=== PATIENT | female | born 1950 | race Caucasian/White ===

== ENCOUNTER → 2016-11-24 | Outpatient (CLI) | payer MEDICARE ==
--- NOTE | 2016-11-25 07:24 | MM ---
Reason for exam: follow-up at short interval from prior study. Last mammogram was performed 6 months ago. History: Patient is postmenopausal. Family history of breast cancer in aunt. Benign US right guided mammotome of the right breast, December 13, 2008. Benign left mammotome panel of the left breast, September 12, 2006. Benign right mammotome panel of the right breast, September 12, 2006. Benign stereotactic core biopsy of the left breast, March 18, 2000. Took estrogen beginning at age 46. Took progesterone beginning at age 46. Physical Findings: Nurse Summary: 1.5cm nodule in the right breast at 10 o'clock (nurse dw). MG 3D Diag Mammo W/Cad RT CC and MLO view(s) were taken of the right breast. Prior study comparison: May 10, 2016, bilateral MG diagnostic mammo w CAD LOREN. December 10, 2013, CAD bilateral diagnostic mammogram. There are scattered fibroglandular densities. Asymmetric breast tissue in the right breast. No significant new findings when compared with 2008. These results were verbally communicated with the patient and result sheet given to the patient on 11/24/16. ASSESSMENT: Benign, BI-RAD 2 RECOMMENDATION: Routine screening mammogram of both breasts in 6 months. Back on schedule.
--- NOTE | 2016-11-25 07:25 | USB ---
Reason for exam: follow-up at short interval from prior study. History: Patient is postmenopausal. Family history of breast cancer in aunt. Benign US right guided mammotome of the right breast, December 13, 2008. Benign left mammotome panel of the left breast, September 12, 2006. Benign right mammotome panel of the right breast, September 12, 2006. Benign stereotactic core biopsy of the left breast, March 18, 2000. Took estrogen beginning at age 46. Took progesterone beginning at age 46. US Breast RT Right breast ultrasound including all four quadrants, the retroareolar region and axilla demonstrates a 2.0 x 2.1 x 1.6cm oval, lobular, mixed, hypoechoic, vascular lesion at 10 o'clock. These results were verbally communicated with the patient and result sheet given to the patient on 11/24/16. ASSESSMENT: Benign, BI-RAD 2 RECOMMENDATION: Routine screening mammogram of both breasts in 6 months. Back on schedule.
== END | disposition home or self-care (01) ==
LOC: RADMAMWWP 14:07
PROVIDERS: ATTEND Family Medicine
DX: R92.8 Other abnormal and inconclusive findings on diagnostic imaging of breast (principal)
CPT/HCPCS: 76641; G0206; G0279

== ENCOUNTER → 2017-06-14 | Outpatient (CLI) | payer MEDICARE ==
--- NOTE | 2017-06-15 08:33 | MM ---
Reason for exam: screening (asymptomatic). Last mammogram was performed 7 months ago. History: Patient is postmenopausal and history of other cancer. Family history of breast cancer in maternal aunt at age 65. Benign US right guided mammotome of the right breast, December 13, 2008. Benign left mammotome panel of the left breast, September 12, 2006. Benign right mammotome panel of the right breast, September 12, 2006. Benign stereotactic core biopsy of the left breast, March 18, 2000. Took estrogen beginning at age 46. Took progesterone beginning at age 46. Physical Findings: Nurse Summary: 2 x 2cm nodule in the right breast at 10 o'clock (cw). MG 3D Diag Mammo W/Cad LOREN Bilateral CC and MLO view(s) were taken. Prior study comparison: November 24, 2016, right breast MG 3d diag mammo w/cad RT. November 24, 2016, right breast US breast RT. May 10, 2016, bilateral MG diagnostic mammo w CAD LOREN. December 10, 2013, CAD bilateral diagnostic mammogram. The breast tissue is heterogeneously dense. This may lower the sensitivity of mammography. Previous mammotome biopsy in the right breast x 2 and in the left breast x 2. Large circumscribed mass in the right breast upper outer quadrant corresponds to the palpable site and shows slight enlargement from 2014 measuring 26 x 25mm versus 22 x 16mm. Patient reports that the mass feels larger. These results were verbally communicated with the patient and result sheet given to the patient on 06/14/17. ASSESSMENT: Incomplete: need additional imaging evaluation, BI-RAD 0 RECOMMENDATION: Ultrasound of the right breast.
--- NOTE | 2017-06-15 08:37 | USB ---
Reason for exam: additional evaluation requested from abnormal screening. History: Patient is postmenopausal and history of other cancer. Family history of breast cancer in maternal aunt at age 65. Benign US right guided mammotome of the right breast, December 13, 2008. Benign left mammotome panel of the left breast, September 12, 2006. Benign right mammotome panel of the right breast, September 12, 2006. Benign stereotactic core biopsy of the left breast, March 18, 2000. Took estrogen beginning at age 46. Took progesterone beginning at age 46. US Breast Limited RT Right breast ultrasound demonstrates a 2.5 x 2.1 x 1.8cm mixed, hypoechoic, vascular lesion at 10 o'clock, previously measured 2.1 x 2.0 x 1.7cm on 11/24/16, previous to that 2.1 x 1.7 x 1.4cm on 05/10/16. This previously sampled mass shows slight gradual enlargement. Consideration can be given to excision. These results were verbally communicated with the patient and result sheet given to the patient on 06/14/17. ASSESSMENT: Benign, BI-RAD 2 (given prior benign biopsies of this mass) RECOMMENDATION: Surgical consultation of the right breast due to slight gradual enlargement. Excision can be considered. Called with mammographic findings and has scheduled an appointment for the patient for 06/20/17 at 1:[address] Enriquez. PRELIMINARY REPORT CALLED AND FAXED TO DR. ENRIQUEZ ON 06/15/17 /TP. ANDRESSA
== END | disposition home or self-care (01) ==
LOC: RADMAMWWP 12:44
PROVIDERS: ATTEND Family Medicine
DX: R92.8 Other abnormal and inconclusive findings on diagnostic imaging of breast (principal)
CPT/HCPCS: 76642; G0204; G0279

== ENCOUNTER 2018-01-10 16:25 | Day surgery (SDC) | payer MEDICARE ==
[2018-01-10 15:56] VITALS: BP 112/70; PULSE 70; RESP 16; TEMP 97.7
== END 2018-01-10 16:26 | disposition home or self-care (01) ==
LOC: RADPROMAIN 16:25
PROVIDERS: ATTEND Radiology Diagnostic Radiology
DX: Z45.89 Encounter for adjustment and management of other implanted devices (principal)
CPT/HCPCS: 99213

== ENCOUNTER 2018-01-17 12:57 | Day surgery (SDC) | payer MEDICARE ==
[2018-01-17 14:24] VITALS: BP 112/74; PULSE 84; RESP 18; TEMP 98.7
== END 2018-01-17 13:45 | disposition home or self-care (01) ==
LOC: RADPROMAIN 12:57
PROVIDERS: ATTEND Radiology Diagnostic Radiology
DX: Z48.03 Encounter for change or removal of drains (principal); Z53.9 Procedure and treatment not carried out, unspecified reason

== ENCOUNTER 2018-01-24 13:53 | Day surgery (SDC) | payer MEDICARE ==
[2018-01-24 13:49] VITALS: BP 126/74; PULSE 66; RESP 16; TEMP 97.6
== END 2018-01-24 14:00 | disposition home or self-care (01) ==
LOC: RADPROMAIN 13:53
PROVIDERS: ATTEND Radiology Diagnostic Radiology
DX: Z45.89 Encounter for adjustment and management of other implanted devices (principal)
CPT/HCPCS: 99213

== ENCOUNTER → 2018-01-24 | Outpatient (CLI) | payer MEDICARE ==
[2018-01-24 12:17] LABS: Blood Urea Nitrogen 9 mg/dL (7-17)
--- NOTE | 2018-01-24 14:36 | CT ---
EXAMINATION TYPE: CT abdomen pelvis w con DATE OF EXAM: 01/24/2018 COMPARISON: Previous exam 12/30/2017 HISTORY: Diverticulitis of large intestines CT DLP: 749 mGycm Automated exposure control for dose reduction was used. TECHNIQUE: Helical acquisition of images from the lung bases through the pelvis have been completed. CONTRAST: Performed with Oral Contrast and with IV Contrast, patient injected with 100 mL of Omnipaque 300. FINDINGS: LUNG BASES: No significant abnormality is appreciated. AORTA: No significant abnormality is appreciated. LIVER/GB: No significant interval change is appreciated. PANCREAS: No significant abnormality is seen. SPLEEN: No significant abnormality is seen. ADRENALS: No change, there is a right adrenal mass larger than left adrenal mass. KIDNEYS: No significant abnormality is seen. REPRODUCTIVE ORGANS: No significant abnormality is seen BOWEL: There is interval improvement in the pelvic fluid collection which is now smaller, the pigtai l catheter is stable in position within the collection which now measures approximately 4.5 cm x 2 cm x 16 mm. Some local sigmoid colonic wall thickening persists. Extensive diverticular changes again n oted. Second pocket with air-fluid level is present in the right hemipelvis which also appears smalle r. FREE AIR: No Free Air visible. ASCITES: None visible. PELVIC ADENOPATHY: None visualized. RETROPERITONEAL ADENOPATHY: No Retroperitoneal Adenopathy visible. URINARY BLADDER: No significant abnormality is seen. OSSEOUS STRUCTURES: No significant abnormality is seen. IMPRESSION: THERE IS IMPROVEMENT IN SIZE OF THE PATIENT'S PELVIC ABSCESS. ABNORMAL APPEARING: COMPATIBLE WITH COL ITIS, DIVERTICULITIS, EXTENSIVE DIVERTICULOSIS PRESENT IN THE SIGMOID COLON.
== END | disposition home or self-care (01) ==
LOC: RADCTMAIN 11:45
PROVIDERS: ATTEND Surgery
DX: N73.9 Female pelvic inflammatory disease, unspecified (principal)
CPT/HCPCS: 82565; 84520; 74177; Q9967

== ENCOUNTER 2018-01-26 14:49 | Inpatient (IN) | payer MEDICARE ==
[2018-01-26] MEDS ORDERED: LACTATED RINGERS 1,000 ML IV SCH (16:00)
[2018-01-26 16:26] LABS: Basophils % (A) 0 %; Eosinophils # (A) 0.4 k/uL (0-0.7); Eosinophils % (A) 3 %; HCT 33.5 % (34.0-46.0); HGB 10.6 gm/dL (11.4-16.0); Lymphocytes # (A) 1.9 k/uL (1.0-4.8); Lymphocytes % (A) 16 %; MCH 30.7 pg (25.0-35.0); MCHC 31.5 g/dL (31.0-37.0); MCV 97.3 fL (80.0-100.0); Mean Platelet Volume 6.7; Monocytes # (A) 0.7 k/uL (0-1.0); Monocytes % (A) 6 %; Neutrophils # (A) 9.1 k/uL (1.3-7.7); Neutrophils % (A) 74 %; Platelet Count 425 k/uL (150-450); RBC 3.44 m/uL (3.80-5.40); RDW 14.6 % (11.5-15.5); WBC 12.3 k/uL (3.8-10.6)
[2018-01-26 16:38] LABS: ALT 19 U/L (9-52); AST 19 U/L (14-36); Albumin 2.8 g/dL (3.5-5.0); Alkaline Phosphatase 115 U/L (38-126); Anion Gap 9 mmol/L; Blood Urea Nitrogen 7 mg/dL (7-17); Calcium 8.6 mg/dL (8.4-10.2); Carbon Dioxide 28 mmol/L (22-30); Chloride 104 mmol/L (98-107); Glucose 80 mg/dL (74-99); Potassium 3.5 mmol/L (3.5-5.1); Sodium 141 mmol/L (137-145); Total Bilirubin 0.2 mg/dL (0.2-1.3); Total Protein 5.5 g/dL (6.3-8.2)
[2018-01-26] MEDS ORDERED: IV FLUID CONTINUATION 1,000 ML IV ONE (17:01)
[2018-01-26] MEDS ORDERED: DEXAMETHASONE SOD PHOS (MDV) 100 MG/10 ML VIAL IVP ONE (17:34)
[2018-01-26] MEDS ORDERED: HEPARIN SODIUM,PORCINE 5,000 UNIT/ML 1 ML VIAL SQ ONE (17:34)
[2018-01-26] MEDS ORDERED: ONDANSETRON 4 MG/2 ML VIAL IVP ONE (17:34)
[2018-01-26] MEDS ORDERED: MIDAZOLAM 2 MG/2 ML VIAL ONE (17:35)
[2018-01-26] MEDS ORDERED: GLYCOPYRROLATE 0.2 MG/ML 2 ML VIAL ONE (17:35)
[2018-01-26] MEDS ORDERED: NEOSTIGMINE 1 MG/ML 10 ML VIAL ONE (17:35)
[2018-01-26] MEDS ORDERED: fentaNYL (PF) 50 MCG/ML 2 ML AMP ONE (17:35)
[2018-01-26] MEDS ORDERED: LIDOCAINE 1% INJ 10MG/ML (20 ML MDV) ONE (17:35)
[2018-01-26] MEDS ORDERED: SODIUM CHLORIDE 0.9% 50 ML with CLINDAMYCIN 600 MG IV ONE ×2 (17:35)
[2018-01-26] MEDS ORDERED: ROCURONIUM BROMIDE 10 MG/ML 10 ML VIAL IV ONE (17:35)
[2018-01-26] MEDS ORDERED: CLINDAMYCIN 150 MG/ML 4 ML VIAL ONE (17:35)
[2018-01-26] MEDS ORDERED: PHENYLEPHRINE-0.9% NACL SYG 1 MG/10 ML SYRINGE ONE (17:35)
[2018-01-26] MEDS ORDERED: PROPOFOL 10 MG/ML 20 ML VIAL IV ONE (17:35)
[2018-01-26] MEDS ORDERED: SUCCINYLCHOLINE CHLORIDE 100 MG/5 ML SYR IV ONE (17:35)
--- NOTE | 2018-01-26 17:35 | P.GSHP ---
History of Present Illness H&P Date: 01/26/18 Chief Complaint: Perforated diverticulitis This is a 67-year-old female with history of diverticulitis and abscess. Patient underwent CT-guided drainage several weeks ago. The patient was seen in my office today. Patient had flavio stool in her CT-guided drain. Patient is being admitted to the hospital she will undergo exposure laparotomy with colostomy and possible bowel resection today for perforated diverticulitis. The patient states she has noted feculent drainage the last 3 or 4 days. - Constitutional Constitutional: Reports as per HPI Past Medical History Past Medical History: Cancer, Hyperlipidemia, Hypertension Additional Past Medical History / Comment(s): 2017 right breast cancer(sx only) , osteopenia, skin cancer-basal cell on cheek) History of Any Multi-Drug Resistant Organisms: None Reported Past Surgical History: Heart Catheterization Additional Past Surgical History / Comment(s): rt mastectomy, skin cancer removed Past Anesthesia/Blood Transfusion Reactions: No Reported Reaction Past Psychological History: No Psychological Hx Reported Smoking Status: Current every day smoker Past Alcohol Use History: Occasional Additional Past Alcohol Use History / Comment(s): started smoking at age 26 used to smoke 1 ppd now down to 4 cig per day, occ glass of wine Past Drug Use History: None Reported - Past Family History Father History Unknown: Yes Mother Family Medical History: Dementia Medications and Allergies Home Medications Medication Instructions Recorded Confirmed Type Aspirin 81 mg PO HS 12/26/17 01/26/18 History Isosorbide Mononitrate ER [Imdur] 30 mg PO HS 12/26/17 01/26/18 History Metoprolol Succinate (ER) [Toprol 50 mg PO HS 12/26/17 01/26/18 History Xl] Simvastatin [Zocor] 40 mg PO HS 12/26/17 01/26/18 History metroNIDAZOLE [Flagyl] 500 mg PO Q8HR #45 tab 01/03/18 01/26/18 Rx Letrozole [Femara] 2.5 mg PO HS 01/26/18 01/26/18 History cefTRIAXone SODIUM [Ceftriaxone] 2 gm IV DAILY@1000 01/26/18 01/26/18 History Allergies Allergy/AdvReac Type Severity Reaction Status Date / Time Penicillins Allergy Swelling Verified 01/26/18 15:49 Surgical - Exam Vital Signs Temp Pulse Resp BP Pulse Ox 98.5 F 76 16 145/84 96 03/08/18 15:27 01/26/18 15:27 01/26/18 15:27 01/26/18 15:27 01/26/18 15:27 - General well developed, moderate distress - Eyes PERRL - ENT normal pinna - Neck no masses - Respiratory normal expansion - Cardiovascular Rhythm: regular - Abdomen Tenderness left lower quadrant. There is some minimal rebound tenderness Abdomen: soft Results - Labs 01/26/18 16:04 01/26/18 16:04 Abnormal Lab Results - Last 24 Hours (Table) 01/26/18 01/26/18 Range/Units 16:04 16:04 WBC 12.3 H (3.8-10.6) k/uL RBC 3.44 L (3.80-5.40) m/uL Hgb 10.6 L (11.4-16.0) gm/dL Hct 33.5 L (34.0-46.0) % Neutrophils # 9.1 H (1.3-7.7) k/uL Creatinine 0.41 L (0.52-1.04) mg/dL Total Protein 5.5 L (6.3-8.2) g/dL Albumin 2.8 L (3.5-5.0) g/dL Diabetes panel 01/26/18 Range/Units 16:04 Sodium 141 (137-145) mmol/L Potassium 3.5 (3.5-5.1) mmol/L Chloride 104 (98-107) mmol/L Carbon Dioxide 28 (22-30) mmol/L BUN 7 (7-17) mg/dL Creatinine 0.41 L (0.52-1.04) mg/dL Glucose 80 (74-99) mg/dL Calcium 8.6 (8.4-10.2) mg/dL AST 19 (14-36) U/L ALT 19 (9-52) U/L Alkaline Phosphatase 115 (38-126) U/L Total Protein 5.5 L (6.3-8.2) g/dL Albumin 2.8 L (3.5-5.0) g/dL Calcium panel 01/26/18 Range/Units 16:04 Calcium 8.6 (8.4-10.2) mg/dL Albumin 2.8 L (3.5-5.0) g/dL Pituitary panel 01/26/18 Range/Units 16:04 Sodium 141 (137-145) mmol/L Potassium 3.5 (3.5-5.1) mmol/L Chloride 104 (98-107) mmol/L Carbon Dioxide 28 (22-30) mmol/L BUN 7 (7-17) mg/dL Creatinine 0.41 L (0.52-1.04) mg/dL Glucose 80 (74-99) mg/dL Calcium 8.6 (8.4-10.2) mg/dL Adrenal panel 01/26/18 Range/Units 16:04 Sodium 141 (137-145) mmol/L Potassium 3.5 (3.5-5.1) mmol/L Chloride 104 (98-107) mmol/L Carbon Dioxide 28 (22-30) mmol/L BUN 7 (7-17) mg/dL Creatinine 0.41 L (0.52-1.04) mg/dL Glucose 80 (74-99) mg/dL Calcium 8.6 (8.4-10.2) mg/dL Total Bilirubin 0.2 (0.2-1.3) mg/dL AST 19 (14-36) U/L ALT 19 (9-52) U/L Alkaline Phosphatase 115 (38-126) U/L Total Protein 5.5 L (6.3-8.2) g/dL Albumin 2.8 L (3.5-5.0) g/dL Assessment and Plan Assessment: History of diverticular abscess. The patient has failed conservative management. 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 Patient will undergo exposure laparotomy with colostomy. I talked her about the possibility of bowel resection..
[2018-01-26] MEDS ORDERED: METOCLOPRAMIDE 5 MG/ML 2 ML VIAL IVP PRN (18:24)
[2018-01-26] MEDS ORDERED: BENZOCAINE/MENTHOL LOZENG 1 EACH LOZENGE MUCOUS MEM PRN (18:24)
--- NOTE | 2018-01-26 18:24 | P.OP ---
Date of Procedure: 01/26/18 Preoperative Diagnosis: Perforated diverticulitis Postoperative Diagnosis: Perforated diverticulitis with pelvic abscess Procedure(s) Performed: Exploratory laparotomy Drainage of pelvis abscess Diverging colostomy Surgeon: Juliano Guido Estimated Blood Loss (ml): 20 Pathology: none sent Condition: stable Disposition: PACU Description of Procedure: The patient's placed on the operating table in the supine position. She received general anesthesia. Her abdomen was prepped and draped in usual sterile fashion. The area was entered through a midline incision. The abdominal retractors placed a wound. The pelvis examined. The sigmoid colon was inflamed and adherent to the lateral abdominal wall. Gentle dissection was used to reflect the sigmoid colon and then a abscess cavity was entered. The abscess cavity was drained and irrigated. The sigmoid colon rectum was very inflamed. It was decided not to perform a bowel resection due to the inflammation. At this point the proximal sigmoid colon was transected with a GI stapler. And then a suitable spot for the colostomy was chosen on the anterior abdominal wall. The colostomy site was created using electrocautery and sharp dissection. And then the bowel was brought up through the colostomy site. The area was irrigated. There is no bleeding seen. A MERVIN drains placed into the pelvic fossa. The fascia was closed with looped #1 PDS suture. The skin was closed adis. The colostomy was then matured with 3-0 Vicryl suture. Sterile dressing was applied and the colostomy appliance was applied. Patient was sent to recovery in stable condition.
[2018-01-26] MEDS ORDERED: fentaNYL (PF) 50 MCG/ML 2 ML AMP IVP ONE ×2 (18:46→19:03)
[2018-01-26] MEDS ORDERED: LEVOFLOXACIN 500MG-D5W PMX 500 MG in DEXTROSE/WATER 1 100ML.BAG IVPB SCH (19:00)
[2018-01-26] MEDS ORDERED: MORPHINE SULFATE 4 MG/ML SYRINGE IVP ONE ×3 (19:10→19:30)
[2018-01-26] MEDS: D5-0.45% NACL WITH KCL 20MEQ/L 1,000 ML IV SCH (21:16)
[2018-01-26] MEDS: metroNIDAZOLE-NS PMX 500 MG in SALINE 1 100ML.BAG IVPB SCH (21:16)
[2018-01-26] MEDS: FAMOTIDINE 20 MG/2 ML VIAL IV SCH (21:18)
[2018-01-26] MEDS: CEFEPIME 2 GM in SODIUM CHLORIDE 0.9% 50 ML IVPB SCH (23:37)
[2018-01-27] MEDS: HEPARIN SODIUM,PORCINE 5,000 UNIT/ML 1 ML VIAL SQ SCH ×3 (00:57→17:10)
[2018-01-27] MEDS: MORPHINE SULFATE 4 MG/ML SYRINGE IVP PRN ×5 (00:57→23:48)
[2018-01-27] MEDS: metroNIDAZOLE-NS PMX 500 MG in SALINE 1 100ML.BAG IVPB SCH ×3 (04:05→17:11)
--- NOTE | 2018-01-27 04:08 | CONS ---
CONSULTATION DATE OF SERVICE: 01/26/2018. REASON FOR CONSULTATION: Perforated bowel and antibiotic recommendation. HISTORY OF PRESENT ILLNESS: The patient is a 67-year-old female who was recently admitted to [facility] the beginning of December 2017 with abdominal pain. She has been diagnosed with perforated diverticulitis and the patient did have a CT-guided drainage of the abscess. Cultures were positive for anaerobic gram-negative bacilli and Streptococcus species. At that time abscess size was 8 into [address] did show a slight decrease in the size of the abscess, hence the patient did get a PICC line and was getting Rocephin 2 g daily along with oral Flagyl. The patient did have a repeat CT done on the january which did show overall decrease in the size of this abscess to 4.5 x 2 x 1.6 cm. The patient was seen in the office today, where she was noticed to have a flavio stool coming out through her drainage catheter. Hence the patient was sent to be evaluated by her surgeon who subsequently admitted the patient to the hospital. She has been taken to OR and is status post laparotomy for perforated diverticulitis with drainage of the abscess and diverting colostomy. The patient did mention prior to the surgery she was having some abdominal pain mostly lower abdominal area on the left side with pain seemed to be not as worse over the last 2-3 days, more of a dull aching pain 4 to 5 out of 10 and no radiation. She has felt nauseated but no vomiting. Denies having diarrhea or constipation and no high-grade fever. REVIEW OF SYSTEMS: Constitutional: Positive for weakness. No fever. Eyes: No complaint. ENT: No complaint. Respiratory: No complaint. Cardiovascular: No complaint. Genitourinary: No complaint. Gastrointestinal: as per HPI. Musculoskeletal no complaint. Integumentary: No complaint. Psychological no complaint. Endocrine no complaint. Neurological no complaint. PAST MEDICAL HISTORY: Significant for hypertension, hyperlipidemia, right breast cancer, osteopenia, skin cancer, diverticulitis with diverticular abscess. PAST SURGICAL HISTORY: Heart catheterization, skin cancer removal, right mastectomy and a CT-guided drainage of the pelvic abscess. SOCIAL HISTORY: The patient is currently an every day smoker, has more than 30 year pack history of smoking. No drinking or drug use. FAMILY HISTORY: Positive for dementia. ALLERGIES TO: PENICILLIN, However has tolerated Keflex and Rocephin without any problem. MEDICATION: Currently include the patient is on , Pepcid, heparin, Reglan, Flagyl, Levaquin, morphine sulfate, Zofran. EXAMINATION: Blood pressure is 136/72 with a pulse of 71, temperature 98. She is 98% on 2 L nasal cannula. General description is an elderly female lying in bed in no distress. No tachypnea or accessory muscle of respiration use. HEENT: Shows pallor. No scleral icterus. Oral mucosal membranes are dry. No significant erythema or thrush. Neck: Trachea central. No thyromegaly. Lungs unlabored breathing, clear to auscultation. No wheeze or crackles. Heart S1, S2. Regular rate and rhythm. ABDOMEN: Soft. Minimally tender in lower quadrant area. No guarding or rigidity. At the time of initial evaluation, this morning she was noticed to have stool coming through her drainage catheter. EXTREMITIES: No edema of the feet. Skin examination: No rash or mass palpable. Neurological: Patient is awake, alert, oriented times three. Mood and affect normal. LABS: Hemoglobin is 10.3, white count 12.3, BUN of 7, creatinine 0.41. Electrolytes have been normal. Liver enzymes are normal. Unfortunately, no cultures done in the OR. DIAGNOSTIC IMPRESSION AND PLAN: 1. Patient with pelvic abscess from a complicated diverticulitis, previous CT-guided drainage failing outpatient antibiotic therapy and medical management, status post laparotomy with drainage of the abscess and diverting colostomy. Previous cultures positive for alpha hemolytic strep and anaerobic gram-positive bacilli. Will need to cover for resistant gram negative pathogen as the patient has been on antibiotic in the outpatient setting. 2. Patient does have PENICILLIN ALLERGY to limit number of antibiotic that can be safely used. PLAN: 1. Blood cultures x1 stat. 2. Recommend obtaining the cultures with aerobic and anaerobic from the drainage catheter done at the OR. 3. We will discontinue Levaquin. 4. Start the patient on cefepime 2 g q.12h. Continue with Flagyl. 5. Follow up on clinical condition and culture to further adjust medication if needed. Thank you for this consultation. We will follow this patient along with you. MMODL / IJN: [id number] /
[2018-01-27 07:10] LABS: Basophils % (A) 0 %; Eosinophils # (A) 0.1 k/uL (0-0.7); Eosinophils % (A) 0 %; HCT 35.1 % (34.0-46.0); HGB 11.5 gm/dL (11.4-16.0); Lymphocytes # (A) 0.9 k/uL (1.0-4.8); Lymphocytes % (A) 6 %; MCH 31.4 pg (25.0-35.0); MCHC 32.7 g/dL (31.0-37.0); MCV 96.1 fL (80.0-100.0); Mean Platelet Volume 6.8; Monocytes # (A) 0.7 k/uL (0-1.0); Monocytes % (A) 4 %; Neutrophils % (A) 89 %; Platelet Count 467 k/uL (150-450); RBC 3.65 m/uL (3.80-5.40); RDW 14.5 % (11.5-15.5); WBC 16.8 k/uL (3.8-10.6)
[2018-01-27 07:42] LABS: Anion Gap 8 mmol/L; Blood Urea Nitrogen 6 mg/dL (7-17); Calcium 8.6 mg/dL (8.4-10.2); Carbon Dioxide 25 mmol/L (22-30); Chloride 106 mmol/L (98-107); Glucose 166 mg/dL (74-99); Potassium 4.7 mmol/L (3.5-5.1); Sodium 139 mmol/L (137-145)
[2018-01-27] MEDS: CEFEPIME 2 GM in SODIUM CHLORIDE 0.9% 50 ML IVPB SCH ×2 (08:18→21:13)
[2018-01-27] MEDS: FAMOTIDINE 20 MG/2 ML VIAL IV SCH ×2 (08:18→21:16)
[2018-01-27] MEDS: D5-0.45% NACL WITH KCL 20MEQ/L 1,000 ML IV SCH ×4 (08:23→17:12)
[2018-01-27] MEDS: ONDANSETRON 4 MG/2 ML VIAL IVP PRN (11:30)
[2018-01-27 11:36] VITALS: BMI 20.5
--- NOTE | 2018-01-27 12:18 | P.PN ---
<Ira Martinezne M - Last Filed: 01/27/18 12:05> Subjective Progress Note Date: 01/27/18 67-year-old female seen and examined at the bedside states pain medication effective for pain control . Denies nausea vomiting. Denies dizziness lightheadedness or chest pain . A drain in the left lower quadrant greenish secretions noted in the drainage bag stoma pink with an ostomy no stool noted in ostomy bag MERVIN drain in place right lower quadrant serous drainage noted indwelling Sahu catheter in place Patient's postop January 26 exploratory laparotomy drainage of pelvic abscess, diverting colostomy done for perforated diverticulitis. Objective - Vital Signs Vital signs: Vital Signs Temp 97.5 F L 01/27/18 08:02 Pulse 75 01/27/18 08:02 Resp 16 01/27/18 08:02 BP 121/78 01/27/18 08:02 Pulse Ox 91 L 01/27/18 08:02 Intake & Output 01/26/18 01/27/18 01/27/18 18:59 06:59 18:59 Intake Total 704 960 118 Output Total 172 1275 465 Balance 149 -812 -418 Weight 50.802 kg 50.802 kg Intake: IV 704 Oral 960 118 Output: Drainage 75 15 Right Abdomen 50 Right Buttock 25 15 Urine 150 1200 450 Estimated Blood Loss 22 Other: Voiding Method Indwelling Catheter Indwelling Catheter # Voids 1 - Exam GENERAL APPEARANCE: 67-year-old female looking older than stated age sitting up in bed alert, oriented, in no acute distress. VITAL SIGNS: Reviewed HEENT: Head is normocephalic and atraumatic. Pupils are equal and reactive. The nares are patent. Oropharynx is clear without lesions. NECK: Supple without lymphadenopathy. Traches midline. HEART: S1, S2. Regular rate and rhythm. No murmur noted LUNGS: No crackles or wheezes are heard. Adequate air movement bilaterally sats on room air 91% ABDOMEN: Surgical tenderness appropriate mildly distended few hypoactive bowel tones indwelling Sahu catheter in place MERVIN drain right lower quadrant serous drainage in the bulb no stool in the ostomy bag. Drain in the pelvic abscess creamy green secretions in the drainage bag reports not passing gas, belching no nausea vomiting tolerating the clear liquid diet EXTREMITIES: Normal skin color and turgor. No cyanosis, rash, ulceration, clubbing or edema. Radial pedal pulses are 2/4 bilaterally. NEUROLOGICAL: No focal deficits. Strength and sensation are grossly intact. - Labs CBC & Chem 7: 01/27/18 06:18 01/27/18 06:18 Labs: Abnormal Lab Results - Last 24 Hours (Table) 01/26/18 01/26/18 01/27/18 Range/Units 16:04 16:04 06:18 WBC 12.3 H 16.8 H (3.8-10.6) k/uL RBC 3.44 L 3.65 L (3.80-5.40) m/uL Hgb 10.6 L (11.4-16.0) gm/dL Hct 33.5 L (34.0-46.0) % Plt Count 467 H (150-450) k/uL Neutrophils # 9.1 H 15.0 H (1.3-7.7) k/uL Lymphocytes # 0.9 L (1.0-4.8) k/uL BUN (7-17) mg/dL Creatinine 0.41 L (0.52-1.04) mg/dL Glucose (74-99) mg/dL Total Protein 5.5 L (6.3-8.2) g/dL Albumin 2.8 L (3.5-5.0) g/dL 01/27/18 Range/Units 06:18 WBC (3.8-10.6) k/uL RBC (3.80-5.40) m/uL Hgb (11.4-16.0) gm/dL Hct (34.0-46.0) % Plt Count (150-450) k/uL Neutrophils # (1.3-7.7) k/uL Lymphocytes # (1.0-4.8) k/uL BUN 6 L (7-17) mg/dL Creatinine 0.42 L (0.52-1.04) mg/dL Glucose 166 H (74-99) mg/dL Total Protein (6.3-8.2) g/dL Albumin (3.5-5.0) g/dL Assessment and Plan Assessment: Impression History of diverticulitis with pelvic abscess Alonso stool noted CT-guided pelvic drain present on admission Exploratory laparotomy, drainage of a pelvic abscess, diverging colostomy for perforated diverticulitis with pelvic abscess failed outpatient treatment Mild protein calorie malnutrition underweight BMI 20 suspect due to poor caloric intake History of right breast cancer 2017 surgery only Plan Continue postop surgical care Consult dietitian nutritional supplements PT OT eval Pain control IV antibiotics per infectious disease Dr. Jordaned DVT and GI prophylax IV fluid as ordered Increase activity as tolerated Further surgical recommendations pending clinical course Dictating progress note for Dr. Tripathi rounding on behalf of dr small The above impression and plan of care have been discussed and directed by signing physician. Argelia Martinez nurse practitioner acting as scribe for signing physician. <Wolf Serrano - Last Filed: 01/27/18 17:21> Objective - Vital Signs Vital signs: Vital Signs Temp 97.9 F 01/27/18 14:47 Pulse 72 01/27/18 14:47 Resp 18 01/27/18 14:47 BP 126/58 01/27/18 14:47 Pulse Ox 95 01/27/18 15:19 Intake & Output 01/26/18 01/27/18 01/27/18 18:59 06:59 18:59 Intake Total 704 960 355 Output Total 172 1275 465 Balance 532 -315 -110 Weight 50.802 kg 50.802 kg Intake: IV 704 Oral 960 355 Output: Drainage 75 15 Right Abdomen 50 Right Buttock 25 15 Urine 150 1200 450 Estimated Blood Loss 22 Other: Voiding Method Indwelling Catheter Indwelling Catheter # Voids 1 - Labs CBC & Chem 7: 01/27/18 06:18 01/27/18 06:18 Labs: Abnormal Lab Results - Last 24 Hours (Table) 01/27/18 01/27/18 Range/Units 06:18 06:18 WBC 16.8 H (3.8-10.6) k/uL RBC 3.65 L (3.80-5.40) m/uL Plt Count 467 H (150-450) k/uL Neutrophils # 15.0 H (1.3-7.7) k/uL Lymphocytes # 0.9 L (1.0-4.8) k/uL BUN 6 L (7-17) mg/dL Creatinine 0.42 L (0.52-1.04) mg/dL Glucose 166 H (74-99) mg/dL Microbiology - Last 24 Hours (Table) 01/27/18 06:15 Wound Culture - Preliminary Abdominal Fluid 01/27/18 06:15 Anaerobic Culture - Preliminary Abdominal Fluid Assessment and Plan Assessment: As above. Patient's pain is well-controlled. No bowel function. Slightly distended. Continue IV antibiotics. Ambulate. Repeat CBC tomorrow.
--- NOTE | 2018-01-27 14:18 | P.CONS ---
History of Present Illness - Reason for Consult Consult date: 01/27/18 Medical management Requesting physician: Juliano Guido - Chief Complaint Perforated diverticulitis with pelvic abscess - History of Present Illness This is a 67-year-old female, patient of Dr. mg. She has a known past medical history of perforated diverticulitis and abscess. She also has a history of hypertension, hyperlipidemia and right wrist cancer status post mastectomy and nicotine dependence. Patient was hospitalized in [facility] on December 2017 with abdominal pain and evidence of perforated diverticulitis which required a CT-guided drainage. She was followed by infectious disease and surgical service. Discharge home with a PICC line and Rocephin 2 g daily with oral Flagyl. Apparently she went to have a follow-up with Dr. Samuel and the office and there was stool present in the CT-guided drainage. Concerns for perforated diverticulitis with pelvic abscess. She underwent exploratory laparotomy with drainage of the pelvic abscess and colostomy placement with Dr. Samuel. She reports her pain is controlled. Infectious disease is on the case in this patient is currently on cefepime and Flagyl. White count is at 16.8. She is afebrile. She's been placed on a full liquid diet. She denies any nausea or vomiting. Denies any chest pain shortness of breath. Has Sahu catheter in place. The colostomy bag has bloody drainage present. Past Medical History Past Medical History: Cancer, Hyperlipidemia, Hypertension Additional Past Medical History / Comment(s): 2017 right breast cancer(sx only) , osteopenia, skin cancer-basal cell on cheek) History of Any Multi-Drug Resistant Organisms: None Reported Past Surgical History: Heart Catheterization Additional Past Surgical History / Comment(s): rt mastectomy, skin cancer removed Past Anesthesia/Blood Transfusion Reactions: No Reported Reaction Past Psychological History: No Psychological Hx Reported Smoking Status: Current every day smoker Past Alcohol Use History: Occasional Additional Past Alcohol Use History / Comment(s): started smoking at age 26 used to smoke 1 ppd now down to 4 cig per day, occ glass of wine Past Drug Use History: None Reported - Past Family History Father History Unknown: Yes Mother Family Medical History: Dementia Medications and Allergies Home Medications Medication Instructions Recorded Confirmed Type Aspirin 81 mg PO HS 12/26/17 01/26/18 History Isosorbide Mononitrate ER [Imdur] 30 mg PO HS 12/26/17 01/26/18 History Metoprolol Succinate (ER) [Toprol 50 mg PO HS 12/26/17 01/26/18 History Xl] Simvastatin [Zocor] 40 mg PO HS 12/26/17 01/26/18 History metroNIDAZOLE [Flagyl] 500 mg PO Q8HR #45 tab 01/03/18 01/26/18 Rx Letrozole [Femara] 2.5 mg PO HS 01/26/18 01/26/18 History cefTRIAXone SODIUM [Ceftriaxone] 2 gm IV DAILY@1000 01/26/18 01/26/18 History Allergies Allergy/AdvReac Type Severity Reaction Status Date / Time Penicillins Allergy Swelling Verified 01/26/18 15:49 Physical Exam Vitals: Vital Signs Temp Pulse Resp BP BP BP Pulse Ox 01/27/18 08:02 97.5 F L 75 16 121/78 91 L 01/27/18 01:09 98.3 F 74 150/79 94 L 01/26/18 21:57 67 135/69 01/26/18 21:42 72 137/71 01/26/18 21:26 74 135/76 95 01/26/18 21:11 70 145/77 98 01/26/18 20:56 71 148/76 94 L 01/26/18 20:41 69 149/79 96 01/26/18 20:26 69 152/78 93 L 01/26/18 20:13 97.8 F 69 16 154/67 99 01/26/18 19:37 71 16 136/78 98 01/26/18 19:22 70 16 138/76 98 01/26/18 19:07 70 16 141/70 99 01/26/18 18:52 69 16 141/70 94 L 01/26/18 18:37 98 F 74 16 170/80 100 01/26/18 17:27 99.2 F 76 16 146/76 93 L 01/26/18 15:27 98.5 F 76 16 145/84 96 Intake and Output 01/26/18 01/27/18 01/27/18 22:59 06:59 14:59 Intake Total 1184 480 118 Output Total 746 700 465 Balance 437 220 -347 Intake: IV 704 Oral 480 480 118 Output: Drainage 75 15 Right Abdomen 50 Right Buttock 25 15 Urine 650 700 450 Estimated Blood Loss 22 Other: Voiding Method Indwelling Catheter Indwelling Catheter # Voids 1 Weight 50.802 kg 50.802 kg Patient Weight 01/28/18 06:59 Weight 50.802 kg Head normocephalic Neck supple Lungs clear to auscultation bilaterally no wheezing or crackles Heart regular rate and rhythm S1-S2, no rub or gallop Abdomen is soft patient has a drainage tube in place. There is bloody drainage in the colostomy bag. Tender around incision sites. Extremities no edema Neuro alert and orientated to 3 Results CBC & Chem 7: 01/27/18 06:18 01/27/18 06:18 Labs: Abnormal Lab Results - Last 24 Hours (Table) 01/26/18 01/26/18 01/27/18 Range/Units 16:04 16:04 06:18 WBC 12.3 H 16.8 H (3.8-10.6) k/uL RBC 3.44 L 3.65 L (3.80-5.40) m/uL Hgb 10.6 L (11.4-16.0) gm/dL Hct 33.5 L (34.0-46.0) % Plt Count 467 H (150-450) k/uL Neutrophils # 9.1 H 15.0 H (1.3-7.7) k/uL Lymphocytes # 0.9 L (1.0-4.8) k/uL BUN (7-17) mg/dL Creatinine 0.41 L (0.52-1.04) mg/dL Glucose (74-99) mg/dL Total Protein 5.5 L (6.3-8.2) g/dL Albumin 2.8 L (3.5-5.0) g/dL 01/27/18 Range/Units 06:18 WBC (3.8-10.6) k/uL RBC (3.80-5.40) m/uL Hgb (11.4-16.0) gm/dL Hct (34.0-46.0) % Plt Count (150-450) k/uL Neutrophils # (1.3-7.7) k/uL Lymphocytes # (1.0-4.8) k/uL BUN 6 L (7-17) mg/dL Creatinine 0.42 L (0.52-1.04) mg/dL Glucose 166 H (74-99) mg/dL Total Protein (6.3-8.2) g/dL Albumin (3.5-5.0) g/dL Assessment and Plan Assessment: 1. Perforated diverticulitis with pelvic abscess status post exploratory laparotomy with drainage of pelvic abscess and diverging colostomy. Failed outpatient treatment. Surgery has advanced diet to a full liquid diet. Infectious disease following closely currently and has patient on cefepime and Flagyl. 2. History of right breast cancer 2017 status post mastectomy. Continue the Femara 3. Hyperlipidemia continue Lipitor 4. Hypertension continue metoprolol GI prophylaxis Pepcid and DVT prophylaxis subcu heparin Check routine labs in a.m. Thank you for this consultation. We will continue to follow along with you. Time with Patient: Greater than 30 (Greater than 50% of the total time spent in counseling and coordination of care.I performed an examination of the patient and discussed their management with the physician Chief Radiologic Technologist. I have reviewed the Physician Chief Radiologic Technologist's notes and agree with the documented findings and plan of care)
--- NOTE | 2018-01-27 16:30 | PN ---
PROGRESS NOTE DATE OF SERVICE: 01/27/2018. REASON FOR FOLLOWUP: Secondary peritonitis from perforated diverticulitis. INTERVAL HISTORY: The patient is afebrile. She did mention she was having some abdominal pain and nausea. Seems to be improve with the pain and nausea medication she has received. Denies having any chest pain, shortness of breath or cough. Still have good output in her MERVIN drainage. EXAMINATION: Blood pressure 126/58 with a pulse of 72. Temperature 97.9. She is 96% on room air. General description is an elderly female, lying in bed in no distress. RESPIRATORY SYSTEM: Unlabored breathing. Clear to auscultation anteriorly. HEART: S1, S2. Regular rate and rhythm. ABDOMEN: Soft, no tenderness. EXTREMITIES: No edema of the feet. LABS: Hemoglobin 11.5, white count 16.8, BUN of 6, creatinine 0.42. Cultures currently pending. DIAGNOSTIC IMPRESSION AND PLAN: Patient with secondary peritonitis from perforated diverticulitis, status post diverting colostomy. At this time, she will continue cefepime and Flagyl adjusting it further on the bases of culture and clinical response. Continue supportive care. MMODL / IJN: [id number] /
[2018-01-27] MEDS: ATORVASTATIN 20 MG TAB PO SCH (21:13)
[2018-01-27] MEDS: LETROZOLE 2.5 MG TAB PO SCH (21:16)
[2018-01-27] MEDS: METOPROLOL SUCCINATE (ER) 50 MG TAB.ER.24H PO SCH (21:16)
[2018-01-27] MEDS: ISOSORBIDE MONONITRATE ER 30 MG TAB.ER.24H PO SCH (21:16)
[2018-01-28] MEDS: metroNIDAZOLE-NS PMX 500 MG in SALINE 1 100ML.BAG IVPB SCH ×3 (00:51→16:27)
[2018-01-28] MEDS: HEPARIN SODIUM,PORCINE 5,000 UNIT/ML 1 ML VIAL SQ SCH ×4 (00:51→22:48)
[2018-01-28] MEDS: D5-0.45% NACL WITH KCL 20MEQ/L 1,000 ML IV SCH ×3 (06:02→18:30)
[2018-01-28 06:57] LABS: Basophils % (A) 0 %; Eosinophils # (A) 0.3 k/uL (0-0.7); Eosinophils % (A) 2 %; HCT 31.9 % (34.0-46.0); HGB 10.5 gm/dL (11.4-16.0); Lymphocytes # (A) 1.4 k/uL (1.0-4.8); Lymphocytes % (A) 12 %; MCH 31.4 pg (25.0-35.0); MCHC 32.9 g/dL (31.0-37.0); MCV 95.4 fL (80.0-100.0); Mean Platelet Volume 6.6; Monocytes # (A) 0.8 k/uL (0-1.0); Monocytes % (A) 6 %; Neutrophils # (A) 9.3 k/uL (1.3-7.7); Neutrophils % (A) 78 %; Platelet Count 402 k/uL (150-450); RBC 3.34 m/uL (3.80-5.40); RDW 14.3 % (11.5-15.5); WBC 11.8 k/uL (3.8-10.6)
[2018-01-28 07:15] LABS: ALT 17 U/L (9-52); AST 11 U/L (14-36); Albumin 2.3 g/dL (3.5-5.0); Alkaline Phosphatase 71 U/L (38-126); Anion Gap 4 mmol/L; Blood Urea Nitrogen 4 mg/dL (7-17); Calcium 8.2 mg/dL (8.4-10.2); Carbon Dioxide 26 mmol/L (22-30); Chloride 106 mmol/L (98-107); Glucose 126 mg/dL (74-99); Potassium 4.6 mmol/L (3.5-5.1); Sodium 136 mmol/L (137-145); Total Bilirubin 0.3 mg/dL (0.2-1.3); Total Protein 4.7 g/dL (6.3-8.2)
[2018-01-28] MEDS: ONDANSETRON 4 MG/2 ML VIAL IVP PRN ×2 (07:27→22:52)
[2018-01-28] MEDS: MORPHINE SULFATE 4 MG/ML SYRINGE IVP PRN ×3 (07:34→22:46)
[2018-01-28] MEDS: FAMOTIDINE 20 MG/2 ML VIAL IV SCH ×2 (08:39→22:48)
[2018-01-28] MEDS: CEFEPIME 2 GM in SODIUM CHLORIDE 0.9% 50 ML IVPB SCH ×2 (10:18→22:47)
--- NOTE | 2018-01-28 12:31 | P.PN ---
Subjective Progress Note Date: 01/28/18 Patient is a 67-year-old female who is status post a diverting ostomy for a perforated diverticulum. This was done on January 26. She additionally had drainage of a pelvic abscess. The patient has a MERVIN drain in the right lower quadrant. The patient has a drain in the pelvic area as well. Objective - Vital Signs Vital signs: Vital Signs Temp 97.8 F 01/28/18 07:39 Pulse 67 01/28/18 07:39 Resp 16 01/28/18 07:39 BP 161/78 01/28/18 07:39 Pulse Ox 94 L 01/28/18 07:39 Intake & Output 01/27/18 01/28/18 01/28/18 18:59 06:59 18:59 Intake Total 592 225 Output Total 635 20 Balance -43 205 Weight 50.802 kg Intake: Oral 592 225 Output: Drainage 185 20 Right Buttock 185 20 Urine 450 Other: Voiding Method Toilet Toilet # Voids 1 1 - Constitutional General appearance: Present: thin - Respiratory Details: Decreased breath sounds at the bases - Cardiovascular Rhythm: regular Heart sounds: normal: S1, S2 - Gastrointestinal Gastrointestinal Comment(s): Patient has an ostomy in the left lower quadrant Mucosa pink no stool in the ostomy bag Drain MERVIN drain in the right lower quadrant some serous drainage Drain in the pelvis greenish brown drainage General gastrointestinal: Present: decreased bowel sounds - Labs CBC & Chem 7: 01/28/18 06:45 01/28/18 06:45 Labs: Abnormal Lab Results - Last 24 Hours (Table) 01/28/18 01/28/18 Range/Units 06:45 06:45 WBC 11.8 H (3.8-10.6) k/uL RBC 3.34 L (3.80-5.40) m/uL Hgb 10.5 L (11.4-16.0) gm/dL Hct 31.9 L (34.0-46.0) % Neutrophils # 9.3 H (1.3-7.7) k/uL Sodium 136 L (137-145) mmol/L BUN 4 L (7-17) mg/dL Creatinine 0.38 L (0.52-1.04) mg/dL Glucose 126 H (74-99) mg/dL Calcium 8.2 L (8.4-10.2) mg/dL AST 11 L (14-36) U/L Total Protein 4.7 L (6.3-8.2) g/dL Albumin 2.3 L (3.5-5.0) g/dL Microbiology - Last 24 Hours (Table) 01/27/18 06:15 Gram Stain - Preliminary Abdominal Fluid Wound Culture - Preliminary 01/26/18 22:53 Blood Culture - Preliminary Blood No Growth after 24 hours 01/26/18 23:15 Blood Culture - Preliminary Blood No Growth after 24 hours 01/27/18 06:15 Anaerobic Culture - Preliminary Abdominal Fluid Assessment and Plan Assessment: Impression/plan: 1. Patient status post this ostomy for perforated diverticulum 2. Pelvic drain in place for pelvic abscess 3. White count down to 11.8 from 16.8 Plan: 1. Continue present therapy
--- NOTE | 2018-01-28 13:15 | P.PN ---
Subjective Progress Note Date: 01/28/18 This is a 67-year-old female, patient of Dr. mg. She has a known past medical history of perforated diverticulitis and abscess. She also has a history of hypertension, hyperlipidemia and right wrist cancer status post mastectomy and nicotine dependence. Patient was hospitalized in [facility] on December 2017 with abdominal pain and evidence of perforated diverticulitis which required a CT-guided drainage. She was followed by infectious disease and surgical service. Discharge home with a PICC line and Rocephin 2 g daily with oral Flagyl. Apparently she went to have a follow-up with Dr. Samuel and the office and there was stool present in the CT-guided drainage. Concerns for perforated diverticulitis with pelvic abscess. She underwent exploratory laparotomy with drainage of the pelvic abscess and colostomy placement with Dr. Samuel. She reports her pain is controlled. Infectious disease is on the case in this patient is currently on cefepime and Flagyl. White count is at 16.8. She is afebrile. She's been placed on a full liquid diet. She denies any nausea or vomiting. Denies any chest pain shortness of breath. Has Sahu catheter in place. The colostomy bag has bloody drainage present. On 01/28/2018 patient is alert and oriented 3 she denies any complaints at this time pain is well-controlled there is no nausea or vomiting white blood count is down from 16.8-11.8 Objective - Vital Signs Vital signs: Vital Signs Temp 97.8 F 01/28/18 07:39 Pulse 67 01/28/18 07:39 Resp 16 01/28/18 07:39 BP 161/78 01/28/18 07:39 Pulse Ox 94 L 01/28/18 07:39 Intake & Output 01/27/18 01/28/18 01/28/18 18:59 06:59 18:59 Intake Total 592 225 Output Total 635 20 Balance -43 205 Weight 50.802 kg Intake: Oral 592 225 Output: Drainage 185 20 Right Buttock 185 20 Urine 450 Other: Voiding Method Toilet Toilet # Voids 1 1 - Exam In general patient is alert and oriented 3 in no apparent distress HEENT head normocephalic and atraumatic Neck is supple no JVD no goiter Chest exam reveals a few scattered rhonchi no wheezing Cardiac exam reveals regular heart sounds no gallops no murmurs Abdomen is soft nontender no organomegaly Extremity exam reveals no edema no cyanosis or clubbing - Labs CBC & Chem 7: 01/28/18 06:45 01/28/18 06:45 Labs: Abnormal Lab Results - Last 24 Hours (Table) 01/28/18 01/28/18 Range/Units 06:45 06:45 WBC 11.8 H (3.8-10.6) k/uL RBC 3.34 L (3.80-5.40) m/uL Hgb 10.5 L (11.4-16.0) gm/dL Hct 31.9 L (34.0-46.0) % Neutrophils # 9.3 H (1.3-7.7) k/uL Sodium 136 L (137-145) mmol/L BUN 4 L (7-17) mg/dL Creatinine 0.38 L (0.52-1.04) mg/dL Glucose 126 H (74-99) mg/dL Calcium 8.2 L (8.4-10.2) mg/dL AST 11 L (14-36) U/L Total Protein 4.7 L (6.3-8.2) g/dL Albumin 2.3 L (3.5-5.0) g/dL Microbiology - Last 24 Hours (Table) 01/27/18 06:15 Gram Stain - Preliminary Abdominal Fluid Wound Culture - Preliminary 01/26/18 22:53 Blood Culture - Preliminary Blood No Growth after 24 hours 01/26/18 23:15 Blood Culture - Preliminary Blood No Growth after 24 hours 01/27/18 06:15 Anaerobic Culture - Preliminary Abdominal Fluid Assessment and Plan Plan: 1. Perforated diverticulitis with pelvic abscess status post exploratory laparotomy with drainage of pelvic abscess and diverging colostomy. Failed outpatient treatment. Surgery has advanced diet to a full liquid diet. Infectious disease following closely currently and has patient on cefepime and Flagyl. 2. History of right breast cancer 2017 status post mastectomy. Continue the Femara 3. Hyperlipidemia continue Lipitor 4. Hypertension continue metoprolol GI prophylaxis Pepcid and DVT prophylaxis subcu heparin Check routine labs in a.m.
[2018-01-28] MEDS: ISOSORBIDE MONONITRATE ER 30 MG TAB.ER.24H PO SCH (22:47)
[2018-01-28] MEDS: METOPROLOL SUCCINATE (ER) 50 MG TAB.ER.24H PO SCH (22:47)
[2018-01-28] MEDS: ATORVASTATIN 20 MG TAB PO SCH (22:48)
[2018-01-28] MEDS: LETROZOLE 2.5 MG TAB PO SCH (22:48)
[2018-01-29] MEDS: metroNIDAZOLE-NS PMX 500 MG in SALINE 1 100ML.BAG IVPB SCH ×3 (01:14→16:50)
[2018-01-29] MEDS: D5-0.45% NACL WITH KCL 20MEQ/L 1,000 ML IV SCH ×3 (07:58→19:24)
[2018-01-29 08:05] LABS: Basophils % (A) 0 %; Eosinophils # (A) 0.5 k/uL (0-0.7); Eosinophils % (A) 5 %; HCT 32.2 % (34.0-46.0); HGB 10.4 gm/dL (11.4-16.0); Lymphocytes # (A) 1.3 k/uL (1.0-4.8); Lymphocytes % (A) 12 %; MCH 31.5 pg (25.0-35.0); MCHC 32.4 g/dL (31.0-37.0); MCV 97.2 fL (80.0-100.0); Mean Platelet Volume 6.8; Monocytes # (A) 0.8 k/uL (0-1.0); Monocytes % (A) 7 %; Neutrophils # (A) 8.5 k/uL (1.3-7.7); Neutrophils % (A) 75 %; Platelet Count 432 k/uL (150-450); RBC 3.31 m/uL (3.80-5.40); RDW 14.3 % (11.5-15.5); WBC 11.3 k/uL (3.8-10.6)
[2018-01-29 08:19] LABS: ALT 17 U/L (9-52); AST 14 U/L (14-36); Albumin 2.3 g/dL (3.5-5.0); Alkaline Phosphatase 73 U/L (38-126); Anion Gap 8 mmol/L; Blood Urea Nitrogen 3 mg/dL (7-17); Calcium 8.3 mg/dL (8.4-10.2); Carbon Dioxide 24 mmol/L (22-30); Chloride 106 mmol/L (98-107); Glucose 113 mg/dL (74-99); Potassium 4.6 mmol/L (3.5-5.1); Sodium 138 mmol/L (137-145); Total Bilirubin 0.4 mg/dL (0.2-1.3); Total Protein 4.9 g/dL (6.3-8.2)
[2018-01-29] MEDS: HEPARIN SODIUM,PORCINE 5,000 UNIT/ML 1 ML VIAL SQ SCH ×3 (08:27→21:53)
[2018-01-29] MEDS: FAMOTIDINE 20 MG/2 ML VIAL IV SCH ×2 (08:27→21:53)
[2018-01-29] MEDS: MORPHINE SULFATE 4 MG/ML SYRINGE IVP PRN ×3 (09:28→22:33)
[2018-01-29] MEDS: ONDANSETRON 4 MG/2 ML VIAL IVP PRN ×2 (09:35→17:03)
[2018-01-29] MEDS: CEFEPIME 2 GM in SODIUM CHLORIDE 0.9% 50 ML IVPB SCH ×2 (09:43→21:53)
--- NOTE | 2018-01-29 12:56 | P.PN ---
Subjective Patient is a 67-year-old female who is status post a diverting ostomy for a perforated diverticulum. This was done on January 26. She additionally had drainage of a pelvic abscess. The patient has a MERVIN drain in the right lower quadrant. The patient has a drain in the pelvic area as well. Objective - Vital Signs Vital signs: Vital Signs Temp 98.2 F 01/29/18 07:10 Pulse 69 01/29/18 07:10 Resp 16 01/29/18 07:10 BP 188/70 01/29/18 08:44 Pulse Ox 93 L 01/29/18 08:44 Intake & Output 01/28/18 01/29/18 01/29/18 17:59 06:59 18:59 Intake Total Output Total 5 Balance -5 Intake: Intake, IV Titration Amount Cefepime 2 gm In Sodium Chloride 0.9% 50 ml @ 100 mls/hr IVPB Q12HR [facility] Rx #:[id number] D5-0.45% NaCl with KCl 20Meq/l 1,000 ml @ 125 mls/hr IV .Q8H [facility] Rx#: [id number] metroNIDAZOLE-NS PMX 500 mg In Saline 1 100ml.bag @ 100 mls/hr IVPB Q8HR [facility] Rx#:[id number] Oral Output: Drainage 5 Right Abdomen 5 Right Buttock Other: Voiding Method # Voids 2 - Constitutional General appearance: Present: thin - Respiratory Details: Decreased breath sounds bilaterally at the bases - Cardiovascular Rhythm: regular Heart sounds: normal: S1, S2 - Gastrointestinal Gastrointestinal Comment(s): Incision clean and dry Ostomy pink, no output at this time MERVIN drains serosanguineous Drain pelvic area greenish brown output - Psychiatric Psychiatric: Present: A&O x's 3, appropriate affect, intact judgment & insight - Labs CBC & Chem 7: 01/29/18 07:30 01/29/18 07:30 Labs: Abnormal Lab Results - Last 24 Hours (Table) 01/29/18 01/29/18 Range/Units 07:30 07:30 WBC 11.3 H (3.8-10.6) k/uL RBC 3.31 L (3.80-5.40) m/uL Hgb 10.4 L (11.4-16.0) gm/dL Hct 32.2 L (34.0-46.0) % Neutrophils # 8.5 H (1.3-7.7) k/uL BUN 3 L (7-17) mg/dL Creatinine 0.36 L (0.52-1.04) mg/dL Glucose 113 H (74-99) mg/dL Calcium 8.3 L (8.4-10.2) mg/dL Total Protein 4.9 L (6.3-8.2) g/dL Albumin 2.3 L (3.5-5.0) g/dL Microbiology - Last 24 Hours (Table) 01/27/18 06:15 Gram Stain - Final Abdominal Fluid Wound Culture - Final 01/26/18 22:53 Blood Culture - Preliminary Blood No Growth after 48 hours 01/26/18 23:15 Blood Culture - Preliminary Blood No Growth after 48 hours Assessment and Plan Assessment: Impression/plan: 1. Patient status post this ostomy for perforated diverticulum 2. Pelvic drain in place for pelvic abscess 3. White count down to 11.3 Plan: 1. Continue present therapy, await return of bowel function
--- NOTE | 2018-01-29 15:05 | P.PN ---
Subjective Progress Note Date: 01/29/18 This is a 67-year-old female, patient of Dr. mg. She has a known past medical history of perforated diverticulitis and abscess. She also has a history of hypertension, hyperlipidemia and right wrist cancer status post mastectomy and nicotine dependence. Patient was hospitalized in [facility] on December 2017 with abdominal pain and evidence of perforated diverticulitis which required a CT-guided drainage. She was followed by infectious disease and surgical service. Discharge home with a PICC line and Rocephin 2 g daily with oral Flagyl. Apparently she went to have a follow-up with Dr. Samuel and the office and there was stool present in the CT-guided drainage. Concerns for perforated diverticulitis with pelvic abscess. She underwent exploratory laparotomy with drainage of the pelvic abscess and colostomy placement with Dr. Samuel. She reports her pain is controlled. Infectious disease is on the case in this patient is currently on cefepime and Flagyl. White count is at 16.8. She is afebrile. She's been placed on a full liquid diet. She denies any nausea or vomiting. Denies any chest pain shortness of breath. Has Sahu catheter in place. The colostomy bag has bloody drainage present. On 01/28/2018 patient is alert and oriented 3 she denies any complaints at this time pain is well-controlled there is no nausea or vomiting white blood count is down from 16.8-11.8 On 01/29/2018 patient is alert and oriented 3 she is complaining of abdominal discomfort there is no nausea or vomiting she is tolerating a liquid diet well there is no stool in the colostomy back yet, otherwise she denies any complaint Objective - Vital Signs Vital signs: Vital Signs Temp 98.5 F 01/29/18 14:14 Pulse 64 01/29/18 14:14 Resp 16 01/29/18 14:14 BP 149/81 01/29/18 14:14 Pulse Ox 99 01/29/18 14:14 Intake & Output 01/28/18 01/29/18 01/29/18 17:59 06:59 18:59 Intake Total Output Total 5 Balance -5 Intake: Intake, IV Titration Amount Cefepime 2 gm In Sodium Chloride 0.9% 50 ml @ 100 mls/hr IVPB Q12HR [facility] Rx #:[id number] D5-0.45% NaCl with KCl 20Meq/l 1,000 ml @ 125 mls/hr IV .Q8H [facility] Rx#: [id number] metroNIDAZOLE-NS PMX 500 mg In Saline 1 100ml.bag @ 100 mls/hr IVPB Q8HR [facility] Rx#:[id number] Oral Output: Drainage 5 Right Abdomen 5 Right Buttock Other: Voiding Method # Voids 2 - Exam In general patient is alert and oriented 3 in no apparent distress HEENT head normocephalic and atraumatic Neck is supple no JVD no goiter Chest exam reveals a few scattered rhonchi no wheezing Cardiac exam reveals regular heart sounds no gallops no murmurs Abdomen is soft nontender no organomegaly Extremity exam reveals no edema no cyanosis or clubbing - Labs CBC & Chem 7: 01/29/18 07:30 01/29/18 07:30 Labs: Abnormal Lab Results - Last 24 Hours (Table) 01/29/18 01/29/18 Range/Units 07:30 07:30 WBC 11.3 H (3.8-10.6) k/uL RBC 3.31 L (3.80-5.40) m/uL Hgb 10.4 L (11.4-16.0) gm/dL Hct 32.2 L (34.0-46.0) % Neutrophils # 8.5 H (1.3-7.7) k/uL BUN 3 L (7-17) mg/dL Creatinine 0.36 L (0.52-1.04) mg/dL Glucose 113 H (74-99) mg/dL Calcium 8.3 L (8.4-10.2) mg/dL Total Protein 4.9 L (6.3-8.2) g/dL Albumin 2.3 L (3.5-5.0) g/dL Microbiology - Last 24 Hours (Table) 01/27/18 06:15 Anaerobic Culture - Preliminary Abdominal Fluid 01/27/18 06:15 Gram Stain - Final Abdominal Fluid Wound Culture - Final 01/26/18 22:53 Blood Culture - Preliminary Blood No Growth after 48 hours 01/26/18 23:15 Blood Culture - Preliminary Blood No Growth after 48 hours Assessment and Plan Plan: 1. Perforated diverticulitis with pelvic abscess status post exploratory laparotomy with drainage of pelvic abscess and diverging colostomy. Failed outpatient treatment. Surgery has advanced diet to a full liquid diet. Infectious disease following closely currently and has patient on cefepime and Flagyl. 2. History of right breast cancer 2017 status post mastectomy. Continue the Femara 3. Hyperlipidemia continue Lipitor 4. Hypertension continue metoprolol GI prophylaxis Pepcid and DVT prophylaxis subcu heparin Today I reviewed labs and medications, continue with current management recheck labs in a.m.
[2018-01-29] MEDS: ISOSORBIDE MONONITRATE ER 30 MG TAB.ER.24H PO SCH (21:52)
[2018-01-29] MEDS: ATORVASTATIN 20 MG TAB PO SCH (21:52)
[2018-01-29] MEDS: LETROZOLE 2.5 MG TAB PO SCH (21:53)
[2018-01-29] MEDS: METOPROLOL SUCCINATE (ER) 50 MG TAB.ER.24H PO SCH (21:53)
[2018-01-30] MEDS: metroNIDAZOLE-NS PMX 500 MG in SALINE 1 100ML.BAG IVPB SCH ×3 (02:48→16:33)
--- NOTE | 2018-01-30 05:44 | PN ---
PROGRESS NOTE DATE OF SERVICE: 01/29/2018. REASON FOR FOLLOWUP: Secondary peritonitis from perforated bowel. INTERVAL HISTORY: The patient is afebrile. She is breathing comfortably. Denies having any chest pain, shortness of breath, cough. No nausea, vomiting, abdominal pain is currently controlled with medication. EXAMINATION: Blood pressure 140/54 with a pulse of 77, temperature 97.4. She is 95% on room air. General description is an elderly female lying in bed in no distress. Respiratory system unlabored breathing. Clear to auscultation anteriorly. Heart S1, S2 regular rate and rhythm. Abdomen soft, minimal tenderness lower quadrant area. EXTREMITIES: No edema of the feet. LABS: Hemoglobin is 10.4, white count 11.3, BUN of 3, creatinine 0.36. Abdominal cultures currently pending. Blood culture so far negative. DIAGNOSTIC IMPRESSION AND PLAN: Patient with secondary peritonitis from perforated diverticulitis status post diverting colostomy, currently on cefepime, Flagyl that will continue because of PENICILLIN allergy, adjusting it further based on the culture. Continue supportive care. MMODL / IJN: [id number] /
[2018-01-30 07:24] LABS: Basophils % (A) 0 %; Eosinophils # (A) 0.9 k/uL (0-0.7); Eosinophils % (A) 9 %; HCT 30.9 % (34.0-46.0); HGB 9.9 gm/dL (11.4-16.0); Lymphocytes # (A) 1.2 k/uL (1.0-4.8); Lymphocytes % (A) 12 %; MCH 30.8 pg (25.0-35.0); MCHC 31.9 g/dL (31.0-37.0); MCV 96.5 fL (80.0-100.0); Monocytes # (A) 0.8 k/uL (0-1.0); Monocytes % (A) 9 %; Neutrophils # (A) 6.8 k/uL (1.3-7.7); Neutrophils % (A) 69 %; Platelet Count 392 k/uL (150-450); RDW 14.6 % (11.5-15.5); WBC 9.9 k/uL (3.8-10.6)
[2018-01-30 07:40] LABS: ALT 15 U/L (9-52); AST 12 U/L (14-36); Albumin 2.3 g/dL (3.5-5.0); Alkaline Phosphatase 75 U/L (38-126); Anion Gap 8 mmol/L; Blood Urea Nitrogen 3 mg/dL (7-17); Calcium 8.5 mg/dL (8.4-10.2); Carbon Dioxide 27 mmol/L (22-30); Chloride 105 mmol/L (98-107); Glucose 118 mg/dL (74-99); Potassium 4.5 mmol/L (3.5-5.1); Sodium 140 mmol/L (137-145); Total Bilirubin 0.2 mg/dL (0.2-1.3); Total Protein 4.8 g/dL (6.3-8.2)
[2018-01-30] MEDS: D5-0.45% NACL WITH KCL 20MEQ/L 1,000 ML IV SCH ×3 (07:42→21:11)
[2018-01-30] MEDS: FAMOTIDINE 20 MG/2 ML VIAL IV SCH ×2 (09:58→21:15)
[2018-01-30] MEDS: HEPARIN SODIUM,PORCINE 5,000 UNIT/ML 1 ML VIAL SQ SCH ×3 (10:02→21:16)
[2018-01-30] MEDS: CEFEPIME 2 GM in SODIUM CHLORIDE 0.9% 50 ML IVPB SCH ×2 (10:02→21:15)
--- NOTE | 2018-01-30 10:28 | P.PN ---
<JuanIraArgelia M - Last Filed: 01/30/18 10:53> Subjective Progress Note Date: 01/30/18 67 year old female seen and examined currently resting in bed. Patient states has been up ambulating from the bed to the bathroom this morning no movement from the ostomy. Patient is asking for diet to be advanced. Patient is postop diverting ostomy for perforated diverticulum done January 26. Additionally patient has drainage of a pelvic abscess with drainage tube in place rust colored secretions noted. A MERVIN drain in the right lower quadrant serosanguineous drainage noted Objective - Vital Signs Vital signs: Vital Signs Temp 97.7 F 01/30/18 01:51 Pulse 70 01/30/18 01:51 Resp 16 01/30/18 01:51 BP 137/65 01/30/18 01:51 Pulse Ox 99 01/30/18 01:51 Intake & Output 01/29/18 01/30/18 01/30/18 18:59 06:59 18:59 Output Total 5 Balance -5 Output: Drainage 5 Right Abdomen 5 Other: Voiding Method Toilet # Voids 2 - Exam GENERAL APPEARANCE: 67-year-old female looking older than stated age sitting up in bed alert, oriented, in no acute distress. VITAL SIGNS: Reviewed HEENT: Head is normocephalic and atraumatic. Pupils are equal and reactive. The nares are patent. Oropharynx is clear without lesions. NECK: Supple without lymphadenopathy. Traches midline. HEART: S1, S2. Regular rate and rhythm. No murmur noted LUNGS: No crackles or wheezes are heard. Adequate air movement bilaterally ABDOMEN: Surgical tenderness appropriate mildly distended positive bowel tones MERVIN drain right lower quadrant serous drainage in the bulb no stool in the ostomy bag. Drain in the pelvic abscess colored secretions in the drainage bag reports not passing gas, belching no nausea vomiting EXTREMITIES: Normal skin color and turgor. No cyanosis, rash, ulceration, clubbing or edema. Radial pedal pulses are 2/4 bilaterally. - Labs CBC & Chem 7: 01/30/18 06:29 01/30/18 06:29 Labs: Abnormal Lab Results - Last 24 Hours (Table) 01/30/18 01/30/18 Range/Units 06:29 06:29 RBC 3.20 L (3.80-5.40) m/uL Hgb 9.9 L (11.4-16.0) gm/dL Hct 30.9 L (34.0-46.0) % Eosinophils # 0.9 H (0-0.7) k/uL BUN 3 L (7-17) mg/dL Creatinine 0.39 L (0.52-1.04) mg/dL Glucose 118 H (74-99) mg/dL AST 12 L (14-36) U/L Total Protein 4.8 L (6.3-8.2) g/dL Albumin 2.3 L (3.5-5.0) g/dL Microbiology - Last 24 Hours (Table) 01/26/18 22:53 Blood Culture - Preliminary Blood No Growth after 72 hours 01/26/18 23:15 Blood Culture - Preliminary Blood No Growth after 72 hours 01/27/18 06:15 Anaerobic Culture - Preliminary Abdominal Fluid 01/27/18 06:15 Gram Stain - Final Abdominal Fluid Wound Culture - Final Assessment and Plan Assessment: Impression History of diverticulitis with pelvic abscess Alonso stool noted CT-guided pelvic drain present on admission Exploratory laparotomy, drainage of a pelvic abscess, diverging colostomy for perforated diverticulitis with pelvic abscess failed outpatient treatment Mild protein calorie malnutrition underweight BMI 20 suspect due to poor caloric intake History of right breast cancer 2017 surgery only Plan Reinforced ostomy teaching Advance diet Continue postop surgical care Consult dietitian nutritional supplements PT OT eval Pain control IV antibiotics per infectious disease Dr. Jordaned DVT and GI prophylax IV fluid as ordered Increase activity as tolerated Further surgical recommendations pending clinical course Dictating progress note for Dr. Tripathi rounding on behalf of dr small The above impression and plan of care have been discussed and directed by signing physician. Argelia Martinez nurse practitioner acting as scribe for signing physician. <Wolf Serrano - Last Filed: 01/30/18 15:36> Objective - Vital Signs Vital signs: Vital Signs Temp 97.9 F 01/30/18 14:48 Pulse 71 01/30/18 14:48 Resp 18 01/30/18 14:48 BP 114/54 01/30/18 14:48 Pulse Ox 96 01/30/18 14:48 Intake & Output 01/29/18 01/30/18 01/30/18 18:59 06:59 18:59 Output Total 5 Balance -5 Output: Drainage 5 Right Abdomen 5 Other: Voiding Method Toilet # Voids 2 - Labs CBC & Chem 7: 01/30/18 06:29 01/30/18 06:29 Labs: Abnormal Lab Results - Last 24 Hours (Table) 01/30/18 01/30/18 Range/Units 06:29 06:29 RBC 3.20 L (3.80-5.40) m/uL Hgb 9.9 L (11.4-16.0) gm/dL Hct 30.9 L (34.0-46.0) % Eosinophils # 0.9 H (0-0.7) k/uL BUN 3 L (7-17) mg/dL Creatinine 0.39 L (0.52-1.04) mg/dL Glucose 118 H (74-99) mg/dL AST 12 L (14-36) U/L Total Protein 4.8 L (6.3-8.2) g/dL Albumin 2.3 L (3.5-5.0) g/dL Microbiology - Last 24 Hours (Table) 01/26/18 22:53 Blood Culture - Preliminary Blood No Growth after 72 hours 01/26/18 23:15 Blood Culture - Preliminary Blood No Growth after 72 hours 01/27/18 06:15 Anaerobic Culture - Preliminary Abdominal Fluid 01/27/18 06:15 Gram Stain - Final Abdominal Fluid Wound Culture - Final Assessment and Plan Assessment: As above. Patient is mild abdominal bloating. Minimal ostomy function. MERVIN drain serosanguineous. CT-guided drain remains feculent. Continue liquid diet this time. Continue antibiotics. Ambulate.
[2018-01-30] MEDS: ONDANSETRON 4 MG/2 ML VIAL IVP PRN (10:35)
[2018-01-30] MEDS: HYDROcodone/APAP 7.5-325MG 1 EACH TAB PO PRN ×2 (10:35→19:12)
--- NOTE | 2018-01-30 15:56 | P.PN ---
Subjective Progress Note Date: 01/30/18 This is a 67-year-old female, patient of Dr. mg. She has a known past medical history of perforated diverticulitis and abscess. She also has a history of hypertension, hyperlipidemia and right wrist cancer status post mastectomy and nicotine dependence. Patient was hospitalized in [facility] on December 2017 with abdominal pain and evidence of perforated diverticulitis which required a CT-guided drainage. She was followed by infectious disease and surgical service. Discharge home with a PICC line and Rocephin 2 g daily with oral Flagyl. Apparently she went to have a follow-up with Dr. Samuel and the office and there was stool present in the CT-guided drainage. Concerns for perforated diverticulitis with pelvic abscess. She underwent exploratory laparotomy with drainage of the pelvic abscess and colostomy placement with Dr. Samule. She reports her pain is controlled. Infectious disease is on the case in this patient is currently on cefepime and Flagyl. White count is at 16.8. She is afebrile. She's been placed on a full liquid diet. She denies any nausea or vomiting. Denies any chest pain shortness of breath. Has Sahu catheter in place. The colostomy bag has bloody drainage present. 01/30/2018 patient complaining of abdominal pain that improves with pain medication. Denies any nausea or vomiting. Surgical service is advancing diet to a low fiber diet. No stool in the colostomy at has a serosanguineous drainage. She does report that her feet have been tingly and following sleep off and on that started on Tuesday. However when she moves her feet the tingling sensation does go. Also had some tingling in the hands that has resolved after movement as well. Continue to monitor. calcium level 8.5 Objective - Vital Signs Vital signs: Vital Signs Temp 97.9 F 01/30/18 14:48 Pulse 71 01/30/18 14:48 Resp 18 01/30/18 14:48 BP 114/54 01/30/18 14:48 Pulse Ox 96 01/30/18 14:48 Intake & Output 01/29/18 01/30/18 01/30/18 18:59 06:59 18:59 Output Total 5 Balance -5 Output: Drainage 5 Right Abdomen 5 Other: Voiding Method Toilet # Voids 2 - Exam Head normocephalic Neck supple Lungs clear to auscultation bilaterally no wheezing or crackles Heart regular rate and rhythm S1-S2, no rub or gallop Abdomen is soft positive bowel sounds colostomy bag showing no stool but serosanguineous drainage small hematoma on the stoma Extremities no edema Neuro alert and orientated to 3. Patient is able to move her toes. No numbness. No discoloration - Labs CBC & Chem 7: 01/30/18 06:29 01/30/18 06:29 Labs: Abnormal Lab Results - Last 24 Hours (Table) 01/30/18 01/30/18 Range/Units 06:29 06:29 RBC 3.20 L (3.80-5.40) m/uL Hgb 9.9 L (11.4-16.0) gm/dL Hct 30.9 L (34.0-46.0) % Eosinophils # 0.9 H (0-0.7) k/uL BUN 3 L (7-17) mg/dL Creatinine 0.39 L (0.52-1.04) mg/dL Glucose 118 H (74-99) mg/dL AST 12 L (14-36) U/L Total Protein 4.8 L (6.3-8.2) g/dL Albumin 2.3 L (3.5-5.0) g/dL Microbiology - Last 24 Hours (Table) 01/26/18 22:53 Blood Culture - Preliminary Blood No Growth after 72 hours 01/26/18 23:15 Blood Culture - Preliminary Blood No Growth after 72 hours 01/27/18 06:15 Anaerobic Culture - Preliminary Abdominal Fluid 01/27/18 06:15 Gram Stain - Final Abdominal Fluid Wound Culture - Final Assessment and Plan Assessment: 1. Perforated diverticulitis with pelvic abscess status post exploratory laparotomy with drainage of pelvic abscess and diverging colostomy. Failed outpatient treatment. Surgery has advanced diet to a low fiber diet. Infectious disease following closely currently and has patient on cefepime and Flagyl. 2. History of right breast cancer 2017 status post mastectomy. Continue the Femara 3. Hyperlipidemia continue Lipitor 4. Hypertension continue metoprolol 5. Peritonitis secondary to perforated diverticulitis. Antibiotics per infectious disease GI prophylaxis Pepcid and DVT prophylaxis subcu heparin Encouraged ambulation I performed an examination of the patient and discussed their management with the physician Plant Control Operator. I have reviewed the Physician Plant Control Operator's notes and agree with the documented findings and plan of care
[2018-01-30 17:01] LABS: Glucose,Whole Blood 138 mg/dL (75-99)
[2018-01-30] MEDS: LETROZOLE 2.5 MG TAB PO SCH (21:15)
[2018-01-30] MEDS: ISOSORBIDE MONONITRATE ER 30 MG TAB.ER.24H PO SCH (21:15)
[2018-01-30] MEDS: METOPROLOL SUCCINATE (ER) 50 MG TAB.ER.24H PO SCH (21:15)
[2018-01-30] MEDS: ATORVASTATIN 20 MG TAB PO SCH (21:15)
--- NOTE | 2018-01-30 22:39 | PN ---
PROGRESS NOTE DATE OF SERVICE: 01/30/2018. REASON FOR FOLLOWUP: Secondary peritonitis from ruptured diverticulitis. INTERVAL HISTORY: The patient is afebrile. She is breathing comfortably. Denies having any chest pain, shortness of breath, cough, abdominal pain has improved. No nausea, vomiting or diarrhea. EXAMINATION: Blood pressure 145/73 with a pulse of 79, temperature of 98.6. She is 96% on room air. General description is an elderly female, lying in bed in no distress. Respiratory system: Unlabored breathing. Clear to auscultation anteriorly. Heart S1, S2 regular rate and rhythm. Abdomen soft. No tenderness. EXTREMITIES: No edema of feet. LABS: White count normalized to 9.9 with a BUN of 3, creatinine 0.39. Abdominal culture so far negative. DIAGNOSTIC IMPRESSION AND PLAN: Patient with secondary peritonitis from ruptured diverticulitis, status post diverting colostomy. The culture negative for resistant pathogen. She will be transitioned to the Rocephin 2 g daily along with oral Flagyl for another 2 weeks with close outpatient followup. Continue supportive care. MMODL / IJN: [id number] /
[2018-01-31] MEDS: metroNIDAZOLE-NS PMX 500 MG in SALINE 1 100ML.BAG IVPB SCH ×3 (01:58→17:10)
[2018-01-31] MEDS: D5-0.45% NACL WITH KCL 20MEQ/L 1,000 ML IV SCH ×4 (01:59→20:02)
[2018-01-31 07:57] LABS: Basophils % (A) 0 %; Eosinophils # (A) 0.7 k/uL (0-0.7); Eosinophils % (A) 7 %; HCT 32.6 % (34.0-46.0); HGB 10.7 gm/dL (11.4-16.0); Lymphocytes # (A) 1.3 k/uL (1.0-4.8); Lymphocytes % (A) 14 %; MCH 31.8 pg (25.0-35.0); MCHC 32.8 g/dL (31.0-37.0); Mean Platelet Volume 7.1; Monocytes # (A) 0.8 k/uL (0-1.0); Monocytes % (A) 9 %; Neutrophils # (A) 6.2 k/uL (1.3-7.7); Neutrophils % (A) 68 %; Platelet Count 443 k/uL (150-450); RBC 3.36 m/uL (3.80-5.40); RDW 14.3 % (11.5-15.5); WBC 9.1 k/uL (3.8-10.6)
[2018-01-31 08:20] LABS: ALT 17 U/L (9-52); AST 14 U/L (14-36); Albumin 2.5 g/dL (3.5-5.0); Alkaline Phosphatase 76 U/L (38-126); Anion Gap 7 mmol/L; Blood Urea Nitrogen 3 mg/dL (7-17); Calcium 8.6 mg/dL (8.4-10.2); Carbon Dioxide 25 mmol/L (22-30); Chloride 105 mmol/L (98-107); Glucose 111 mg/dL (74-99); Potassium 4.6 mmol/L (3.5-5.1); Sodium 137 mmol/L (137-145); Total Bilirubin 0.3 mg/dL (0.2-1.3)
[2018-01-31] MEDS: HYDROcodone/APAP 7.5-325MG 1 EACH TAB PO PRN ×2 (09:06→17:14)
[2018-01-31] MEDS: CEFEPIME 2 GM in SODIUM CHLORIDE 0.9% 50 ML IVPB SCH ×2 (09:06→20:05)
[2018-01-31] MEDS: FAMOTIDINE 20 MG/2 ML VIAL IV SCH ×2 (09:07→20:04)
[2018-01-31] MEDS: HEPARIN SODIUM,PORCINE 5,000 UNIT/ML 1 ML VIAL SQ SCH ×2 (09:07→17:10)
--- NOTE | 2018-01-31 10:33 | P.PN ---
Subjective Progress Note Date: 01/31/18 67 year old female seen and examined at bedside patient states is passing gas through the stoma but no stool. Patient states has been up ambulating in the [place] into the bathroom and back. MERVIN drain in place right lower quadrant serosanguineous drainage noted in the bulb. Also has a percutaneous drain in the pelvic for a pelvic abscess the tubing noted brownish colored secretions scant amount abdomen soft reports no nausea vomiting reports tolerating a diet Additionally patient has drainage of a pelvic abscess with drainage tube in place rust colored secretions noted. Patient is postop diverting ostomy for perforated diverticulum done January 26. With the percutaneous drain in the pelvic area for pelvic abscess Objective - Vital Signs Vital signs: Vital Signs Temp 98.3 F 01/31/18 08:59 Pulse 63 01/31/18 08:59 Resp 16 01/31/18 08:59 BP 176/78 01/31/18 08:59 Pulse Ox 96 01/31/18 08:59 Intake & Output 01/30/18 01/31/18 01/31/18 18:59 06:59 18:59 Intake Total 120 Balance 120 Intake: Oral 120 Other: Voiding Method Toilet Toilet # Voids 2 - Exam Physical exam Abdomen soft surgical tenderness appropriate. A MERVIN drain in the right lower quadrant serosanguineous drainage noted ostomy scant amount of drainage noted stoma pink no stool passing gas through the stoma few hypoactive bowel tones noted reports tolerating a diet percutaneous drain in the pelvic area brownish color secretions noted surgical incisions well approximated no redness. States urinating no difficulty - Labs CBC & Chem 7: 01/31/18 06:36 01/31/18 06:36 Labs: Abnormal Lab Results - Last 24 Hours (Table) 01/30/18 01/31/18 01/31/18 Range/Units 16:56 06:36 06:36 RBC 3.36 L (3.80-5.40) m/uL Hgb 10.7 L (11.4-16.0) gm/dL Hct 32.6 L (34.0-46.0) % BUN 3 L (7-17) mg/dL Creatinine 0.40 L (0.52-1.04) mg/dL Glucose 111 H (74-99) mg/dL POC Glucose (mg/dL) 138 H (75-99) mg/dL Total Protein 5.0 L (6.3-8.2) g/dL Albumin 2.5 L (3.5-5.0) g/dL Microbiology - Last 24 Hours (Table) 01/26/18 22:53 Blood Culture - Preliminary Blood No Growth after 96 hours 01/26/18 23:15 Blood Culture - Preliminary Blood No Growth after 96 hours Assessment and Plan Assessment: Impression History of diverticulitis with pelvic abscess Alonso stool noted CT-guided pelvic drain present on admission Exploratory laparotomy, drainage of a pelvic abscess, diverging colostomy for perforated diverticulitis with pelvic abscess failed outpatient treatment Mild protein calorie malnutrition underweight BMI 20 suspect due to poor caloric intake History of right breast cancer 2017 surgery only Plan Reinforced ostomy teaching Advance diet Continue postop surgical care Consult dietitian nutritional supplements PT OT eval Pain control IV antibiotics per infectious disease Dr. Jordaned DVT and GI prophylax IV fluid as ordered Increase activity as tolerated Further surgical recommendations pending clinical course Dictating progress note for dr small The above impression and plan of care have been discussed and directed by signing physician. Argelia Martinez nurse practitioner acting as scribe for signing physician.
--- NOTE | 2018-01-31 11:02 | P.PN ---
Subjective Progress Note Date: 01/31/18 This is a 67-year-old female, patient of Dr. mg. She has a known past medical history of perforated diverticulitis and abscess. She also has a history of hypertension, hyperlipidemia and right wrist cancer status post mastectomy and nicotine dependence. Patient was hospitalized in [facility] on December 2017 with abdominal pain and evidence of perforated diverticulitis which required a CT-guided drainage. She was followed by infectious disease and surgical service. Discharge home with a PICC line and Rocephin 2 g daily with oral Flagyl. Apparently she went to have a follow-up with Dr. Samuel and the office and there was stool present in the CT-guided drainage. Concerns for perforated diverticulitis with pelvic abscess. She underwent exploratory laparotomy with drainage of the pelvic abscess and colostomy placement with Dr. Samuel. She reports her pain is controlled. Infectious disease is on the case in this patient is currently on cefepime and Flagyl. White count is at 16.8. She is afebrile. She's been placed on a full liquid diet. She denies any nausea or vomiting. Denies any chest pain shortness of breath. Has Sahu catheter in place. The colostomy bag has bloody drainage present. 01/30/2018 patient complaining of abdominal pain that improves with pain medication. Denies any nausea or vomiting. Surgical service is advancing diet to a low fiber diet. No stool in the colostomy at has a serosanguineous drainage. She does report that her feet have been tingly and following sleep off and on that started on Tuesday. However when she moves her feet the tingling sensation does go. Also had some tingling in the hands that has resolved after movement as well. Continue to monitor. calcium level 8.5 01/31/2018 patient reports abdominal pain is controlled.. Episodes of nausea. Tolerated advancement of diet. No vomiting. Passing gas and her colostomy bag. No stool. Denies any chest pain or shortness of breath. Denies any burning with urination. She has been up and ambulating. The tingling sensation in her toes appears to be resolving especially when she she has been up and moving. Objective - Vital Signs Vital signs: Vital Signs Temp 98.3 F 01/31/18 08:59 Pulse 63 01/31/18 08:59 Resp 16 01/31/18 08:59 BP 176/78 01/31/18 08:59 Pulse Ox 96 01/31/18 08:59 Intake & Output 01/30/18 01/31/18 01/31/18 18:59 06:59 18:59 Intake Total 120 Balance 120 Intake: Oral 120 Other: Voiding Method Toilet Toilet # Voids 2 - Exam Head normocephalic Neck supple Lungs clear to auscultation bilaterally no wheezing or crackles Heart regular rate and rhythm S1-S2, no rub or gallop Abdomen is soft positive bowel sounds colostomy bag showing no stool but serosanguineous drainage Extremities no edema Neuro alert and orientated to 3 - Labs CBC & Chem 7: 01/31/18 06:36 01/31/18 06:36 Labs: Abnormal Lab Results - Last 24 Hours (Table) 01/30/18 01/31/18 01/31/18 Range/Units 16:56 06:36 06:36 RBC 3.36 L (3.80-5.40) m/uL Hgb 10.7 L (11.4-16.0) gm/dL Hct 32.6 L (34.0-46.0) % BUN 3 L (7-17) mg/dL Creatinine 0.40 L (0.52-1.04) mg/dL Glucose 111 H (74-99) mg/dL POC Glucose (mg/dL) 138 H (75-99) mg/dL Total Protein 5.0 L (6.3-8.2) g/dL Albumin 2.5 L (3.5-5.0) g/dL Microbiology - Last 24 Hours (Table) 01/26/18 22:53 Blood Culture - Preliminary Blood No Growth after 96 hours 01/26/18 23:15 Blood Culture - Preliminary Blood No Growth after 96 hours Assessment and Plan Assessment: 1. Perforated diverticulitis with pelvic abscess status post exploratory laparotomy with drainage of pelvic abscess and diverging colostomy. Failed outpatient treatment. Surgery has advanced diet to a low fiber diet. Infectious disease following closely currently and has patient on cefepime and Flagyl. 2. History of right breast cancer 2017 status post mastectomy. Continue the Femara 3. Hyperlipidemia continue Lipitor 4. Hypertension continue metoprolol 5. Peritonitis secondary to perforated diverticulitis. Infectious diseases recommending Rocephin 2 g daily with oral Flagyl for another 2 weeks at discharge GI prophylaxis Pepcid and DVT prophylaxis subcu heparin Encouraged ambulation I performed an examination of the patient and discussed their management with the physician Precast Concrete Ironworker. I have reviewed the Physician Precast Concrete Ironworker's notes and agree with the documented findings and plan of care
--- NOTE | 2018-01-31 16:25 | PN ---
PROGRESS NOTE DATE OF SERVICE: 01/31/2018 REASON FOR FOLLOWUP: Secondary peritonitis from perforated diverticulitis. INTERVAL HISTORY: The patient is afebrile. She is breathing comfortably. Denies having any chest pain, shortness of breath or cough. Abdominal pain has improved. Output in the MERVIN drain has decreased. No nausea or vomiting. PHYSICAL EXAMINATION: Blood pressure 176/78 with a pulse of 63, temperature 98.3. She is 96% on room air. General description is an elderly female up in the bed in no distress. RESPIRATORY SYSTEM: Unlabored breathing. Clear to auscultation anteriorly. HEART: S1, S2. Regular rate and rhythm. ABDOMEN: Soft. No tenderness. EXTREMITIES: No edema of the feet. LABS: Hemoglobin is 10.7, white count 9.1 with a BUN of 3, creatinine 0.40. Abdominal culture is so far negative. Blood culture is negative. DIAGNOSTIC IMPRESSION AND PLAN: Patient with secondary peritonitis from perforated diverticulitis, status post diverting colostomy and drainage of the abscess. As no resistant organism has been grown, antibiotic will be switched to Rocephin 2 grams daily to continue with p.o. Flagyl for another 2 weeks with close outpatient followup. MMODL / IJN: [id number] /
[2018-01-31] MEDS: METOPROLOL SUCCINATE (ER) 50 MG TAB.ER.24H PO SCH (20:03)
[2018-01-31] MEDS: LETROZOLE 2.5 MG TAB PO SCH (20:04)
[2018-01-31] MEDS: ATORVASTATIN 20 MG TAB PO SCH (20:04)
[2018-01-31] MEDS: ISOSORBIDE MONONITRATE ER 30 MG TAB.ER.24H PO SCH (20:04)
[2018-02-01] MEDS: metroNIDAZOLE-NS PMX 500 MG in SALINE 1 100ML.BAG IVPB SCH ×2 (01:19→08:12)
[2018-02-01] MEDS: HEPARIN SODIUM,PORCINE 5,000 UNIT/ML 1 ML VIAL SQ SCH ×2 (01:19→08:12)
[2018-02-01] MEDS: D5-0.45% NACL WITH KCL 20MEQ/L 1,000 ML IV SCH ×2 (04:38→13:04)
[2018-02-01 08:11] VITALS: BP 178/80; PULSE 66; RESP 12; TEMP 98.2
[2018-02-01] MEDS: FAMOTIDINE 20 MG/2 ML VIAL IV SCH (08:12)
[2018-02-01] MEDS: CEFEPIME 2 GM in SODIUM CHLORIDE 0.9% 50 ML IVPB SCH (08:12)
[2018-02-01] MEDS: HYDROcodone/APAP 7.5-325MG 1 EACH TAB PO PRN (11:30)
--- NOTE | 2018-02-01 12:00 | P.DS ---
Providers Date of admission: 01/26/18 15:04 Expected date of discharge: 02/01/18 Attending physician: Juliano Small Consults: 01/26/18 18:24 Consult Physician Routine Consulting Provider: Briana Cassidy Consult Reason/Comments: Medical management Do you want consulting provider notified?: Yes 01/26/18 18:26 Consult Physician Routine Consulting Provider: Brett Cain Consult Reason/Comments: Perforated diverticulitis Do you want consulting provider notified?: Yes Primary care physician: Stated None Hospital Course: 67-year-old female who was seen at Dr. small office on the day of admission the patient was being seen in follow-up visit after patient had a CT-guided drainage of a diverticulitis with abscess. Patient stated that she noted several days prior to coming to the office feculent drainage in the drainage bag. Patient was admitted to undergo exploratory laparotomy with colostomy for perforated diverticulitis patient underwent January 26 exploratory laparotomy, drainage of pelvic abscess, diverting colostomy. Patient was followed by infectious disease as well as internal medicine. Patient was started on IV antibiotics for treatment of secondary peritonitis from perforated diverticulitis. Ostomy teaching was initiated. Patient opted to be discharged to home with her sister helping with home care assisting . The plan was for the patient to receive Rocephin 2 g daily for 2 weeks and Flagyl for 2 weeks with outpatient monitoring per infectious disease on the day of discharge the ostomy was functioning . The pelvic percutaneous drain was removed . The MERVIN drain left in place with a small amount of drainage noted the plan would be MERVIN drain would be removed in a follow-up office visit with Dr. small Patient was felt to be clinically stable and appropriate proceed with a discharge Impression History of perforated diverticulitis with pelvic abscess Alonso stool noted CT-guided pelvic drain present on admission Exploratory laparotomy, drainage of a pelvic abscess, diverging colostomy for perforated diverticulitis with pelvic abscess failed outpatient treatment Mild protein calorie malnutrition underweight BMI 20 suspect due to poor caloric intake History of right breast cancer 2017 surgery only The above impression and plan of care have been discussed and directed by signing physician. Argelia Martinez nurse practitioner acting as scribe for signing physician. Plan - Discharge Summary Discharge Rx Participant: No New Discharge Prescriptions: New HYDROcodone/APAP 7.5-325MG [[place] 7.5-325] 1 each PO Q4H PRN #30 tab PRN Reason: Pain cefTRIAXone [Rocephin] 2,000 mg IVP Q24HR #10 ml Continue Simvastatin [Zocor] 40 mg PO HS Metoprolol Succinate (ER) [Toprol XL] 50 mg PO HS Isosorbide Mononitrate ER [Imdur] 30 mg PO HS Aspirin 81 mg PO HS Letrozole [Femara] 2.5 mg PO HS metroNIDAZOLE [Flagyl] 500 mg PO Q8HR #45 tab Discontinued cefTRIAXone SODIUM [Ceftriaxone] 2 gm IV DAILY@1000 Discharge Medication List Aspirin 81 mg PO HS 12/26/17 [History] Isosorbide Mononitrate ER [Imdur] 30 mg PO HS 12/26/17 [History] Metoprolol Succinate (ER) [Toprol XL] 50 mg PO HS 12/26/17 [History] Simvastatin [Zocor] 40 mg PO HS 12/26/17 [History] Letrozole [Femara] 2.5 mg PO HS 01/26/18 [History] HYDROcodone/APAP 7.5-325MG [[place] 7.5-325] 1 each PO Q4H PRN #30 tab 02/01/18 [ Rx] cefTRIAXone [Rocephin] 2,000 mg IVP Q24HR #10 ml 02/01/18 [Rx] metroNIDAZOLE [Flagyl] 500 mg PO Q8HR #45 tab 02/01/18 [Rx] Follow up Appointment(s)/Referral(s): [facility], [NON-STAFF] - [facility], [REFERRING] - Brett Cain MD [STAFF PHYSICIAN] - 1 Week Juliano Small MD [STAFF PHYSICIAN] - 1 Week Patient Instructions/Handouts: Diverticulitis (GEN), Colostomy Care (GEN) Activity/Diet/Wound Care/Special Instructions: Ostomy Care Recommendations: LAst Applaince (pouch ) Change: 01.29.2018 Mrs. Polo will have three appliance changes from the hospital for home use on discharge. Currently while in the hospital Mrs Polo utilized and will be sent home with: Convatec flange Convatec pouches Skin prep wipes (12) Osotmy Powder (1) Mrs. Polo is to change the total pouching system every 3-5 days. Empty the pouch when the pouch is a half to 1/3 full in the bathroom. No tub bath for six weeks. Shower daily. No lifting over 4 pounds for the next 6 weeks. Monitor MERVIN drain and record. May use ice packs to surgical site. No driving while taking narcotic for pain. Discharge Disposition: HOME WITH HOME HEALTH SERVICES
--- NOTE | 2018-02-01 13:30 | P.PN ---
Subjective Progress Note Date: 02/01/18 This is a 67-year-old female, patient of Dr. mg. She has a known past medical history of perforated diverticulitis and abscess. She also has a history of hypertension, hyperlipidemia and right wrist cancer status post mastectomy and nicotine dependence. Patient was hospitalized in [facility] on December 2017 with abdominal pain and evidence of perforated diverticulitis which required a CT-guided drainage. She was followed by infectious disease and surgical service. Discharge home with a PICC line and Rocephin 2 g daily with oral Flagyl. Apparently she went to have a follow-up with Dr. Samuel and the office and there was stool present in the CT-guided drainage. Concerns for perforated diverticulitis with pelvic abscess. She underwent exploratory laparotomy with drainage of the pelvic abscess and colostomy placement with Dr. Samuel. She reports her pain is controlled. Infectious disease is on the case in this patient is currently on cefepime and Flagyl. White count is at 16.8. She is afebrile. She's been placed on a full liquid diet. She denies any nausea or vomiting. Denies any chest pain shortness of breath. Has Sahu catheter in place. The colostomy bag has bloody drainage present. On 01/28/2018 patient is alert and oriented 3 she denies any complaints at this time pain is well-controlled there is no nausea or vomiting white blood count is down from 16.8-11.8 On 01/29/2018 patient is alert and oriented 3 she is complaining of abdominal discomfort there is no nausea or vomiting she is tolerating a liquid diet well there is no stool in the colostomy back yet, otherwise she denies any complaint 01/30/2018 patient complaining of abdominal pain that improves with pain medication. Denies any nausea or vomiting. Surgical service is advancing diet to a low fiber diet. No stool in the colostomy at has a serosanguineous drainage. She does report that her feet have been tingly and following sleep off and on that started on Tuesday. However when she moves her feet the tingling sensation does go. Also had some tingling in the hands that has resolved after movement as well. Continue to monitor. calcium level 8.5 01/31/2018 patient reports abdominal pain is controlled.. Episodes of nausea. Tolerated advancement of diet. No vomiting. Passing gas and her colostomy bag. No stool. Denies any chest pain or shortness of breath. Denies any burning with urination. She has been up and ambulating. The tingling sensation in her toes appears to be resolving especially when she she has been up and moving. On 02/01/2018 patient reports abdominal pain is controlled.. No nausea or vomiting Tolerated advancement of diet. Passing gas and her colostomy bag. No stool. Denies any chest pain or shortness of breath. Denies any burning with urination. She has been up and ambulating. The tingling sensation in her toes appears to be resolving especially when she she has been up and moving. She is scheduled for discharge today. Objective - Vital Signs Vital signs: Vital Signs Temp 98.2 F 02/01/18 08:06 Pulse 66 02/01/18 08:06 Resp 12 02/01/18 08:06 BP 178/80 02/01/18 08:06 Pulse Ox 95 02/01/18 08:06 Intake & Output 01/31/18 02/01/18 02/01/18 18:59 06:59 18:59 Weight 50.802 kg Other: Voiding Method Toilet Toilet # Bowel Movements 1 - Exam In general patient is alert and oriented 3 in no apparent distress HEENT head normocephalic and atraumatic Neck is supple no JVD no goiter Chest exam reveals a few scattered rhonchi no wheezing Cardiac exam reveals regular heart sounds no gallops no murmurs Abdomen is soft nontender no organomegaly Extremity exam reveals no edema no cyanosis or clubbing - Labs CBC & Chem 7: 01/31/18 06:36 01/31/18 06:36 Labs: Microbiology - Last 24 Hours (Table) 01/26/18 22:53 Blood Culture - Preliminary Blood No Growth after 120 hours 01/26/18 23:15 Blood Culture - Preliminary Blood No Growth after 120 hours 01/27/18 06:15 Anaerobic Culture - Final Abdominal Fluid Assessment and Plan Plan: 1. Perforated diverticulitis with pelvic abscess status post exploratory laparotomy with drainage of pelvic abscess and diverging colostomy. Failed outpatient treatment. Surgery has advanced diet to a low fiber diet. Infectious disease following closely currently and has patient on cefepime and Flagyl. 2. History of right breast cancer 2017 status post mastectomy. Continue the Femara 3. Hyperlipidemia continue Lipitor 4. Hypertension continue metoprolol 5. Peritonitis secondary to perforated diverticulitis. Infectious diseases recommending Rocephin 2 g daily with oral Flagyl for another 2 weeks at discharge Plan for discharge home today she will continue IV Rocephin daily for 2 weeks she will also continue oral Flagyl 3 times daily for 2 weeks Drainage tube is still in place and will be taken out by Dr. Guido in the the office
--- NOTE | 2018-02-01 14:41 | PN ---
PROGRESS NOTE DATE OF SERVICE: 02/01/2018 REASON FOR FOLLOW UP: Secondary to peritonitis from a perforated diverticulitis. INTERVAL HISTORY: The patient is afebrile, she is breathing comfortably. Denies having any chest pain, shortness of breath or cough. Abdominal pain has improved. No nausea, vomiting and did have output in her colostomy bag. PHYSICAL EXAMINATION: Blood pressure 172/80 with a pulse of 66, temperature 98.2. She is 95% on room air. General description is an elderly female up in the room, in no distress. RESPIRATORY SYSTEM: Unlabored breathing, clear to auscultation anteriorly. HEART: S1, S2. Regular rate and rhythm. ABDOMEN: Soft, no tenderness. EXTREMITIES: No edema of feet. LABS: Hemoglobin is 10.7, white count 9.1. BUN of 3, creatinine 0.40. DIAGNOSTIC IMPRESSION AND PLAN: Patient with secondary peritonitis from a perforated diverticulitis. Patient will continue Rocephin 2 g daily for another 10 days along with oral Flagyl. Follow up in the office in 1 week. Plan of care discussed in detail with the nurse practitioner for the primary team. MMODL / IJN: [id number] /
== END 2018-02-01 15:41 | disposition home health service (06) | DRG 330 ==
LOC: 3SUR 15:04
PROVIDERS: ADMIT Surgery; ATTEND Surgery
PROC: 0D1N0Z4 Bypass Sigmoid Colon to Cutaneous, Open Approach (ICD-10-PCS; 2018-01-26)
PROC: 0W9G00Z Drainage of Peritoneal Cavity with Drainage Device, Open Approach (ICD-10-PCS; principal; 2018-01-26 18:00)
DX: K57.20 Diverticulitis of large intestine with perforation and abscess without bleeding (principal); E78.5 Hyperlipidemia, unspecified; I10 Essential (primary) hypertension; M85.80 Other specified disorders of bone density and structure, unspecified site; R20.2 Paresthesia of skin; F17.210 Nicotine dependence, cigarettes, uncomplicated; Z79.82 Long term (current) use of aspirin; Z79.899 Other long term (current) drug therapy; Z85.3 Personal history of malignant neoplasm of breast; Z85.828 Personal history of other malignant neoplasm of skin; Z88.0 Allergy status to penicillin; Z68.20 Body mass index [BMI] 20.0-20.9, adult
CPT/HCPCS: 74177; 80048; 80053; 82565; 84520; 85025; 86850; 86900; 86901; 87040; 87070; 87075; 87205

== ENCOUNTER → 2018-04-11 | Outpatient (CLI) | payer MEDICARE | END | disposition home or self-care (01) | LOC: LABPAT 13:59 | PROVIDERS: ATTEND Surgery | DX: Z01.812 Encounter for preprocedural laboratory examination (principal); Z01.818 Encounter for other preprocedural examination; K57.33 Diverticulitis of large intestine without perforation or abscess with bleeding | CPT/HCPCS: 36415; 80051; 85027; 86850; 86900; 86901; 93005 ==

== ENCOUNTER 2018-04-18 08:22 | Day surgery (SDC) | payer MEDICARE ==
[2018-04-14 11:02] VITALS: BMI 18.4
[~2018-04-18 08:22] MED LIST: LACTATED RINGERS 1,000 ML IV SCH; LIDOCAINE 1% 20 ML VIAL (10MG/ML) FOR IV START INTRADERMA PRN; MIDAZOLAM 2 MG/2 ML VIAL IV PRN
[2018-04-18 09:01] VITALS: RESP 16; TEMP 98
[2018-04-18] MEDS ORDERED: LIDOCAINE 1% INJ 10MG/ML (20 ML MDV) ONE (09:11)
[2018-04-18] MEDS ORDERED: PROPOFOL 10 MG/ML 20 ML VIAL IV ONE (09:11)
--- NOTE | 2018-04-18 09:16 | P.GSHP ---
History of Present Illness H&P Date: 04/18/18 Chief Complaint: History of diverticulitis This is a 67-year-old female who presents today for colonoscopy. She's had issues with diverticulitis. Patient's previous history of perforated diverticulitis with colostomy. She'll be undergoing reversal of colostomy tomorrow. 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 feet after taking flagyl-steroid injection today for History of Any Multi-Drug Resistant Organisms: None Reported Past Surgical History: Bowel Resection, Heart Catheterization Additional Past Surgical History / Comment(s): rt mastectomy, skin cancer removed, colostomy January 2018 Past Anesthesia/Blood Transfusion Reactions: No Reported Reaction Smoking Status: Former smoker - Past Family History Father History Unknown: Yes Mother Family Medical History: Dementia Medications and Allergies Home Medications Medication Instructions Recorded Confirmed Type Aspirin 81 mg PO HS 12/26/17 04/14/18 History Isosorbide Mononitrate ER [Imdur] 30 mg PO HS 12/26/17 04/18/18 History Metoprolol Succinate (ER) [Toprol 50 mg PO HS 12/26/17 04/18/18 History XL] Simvastatin [Zocor] 40 mg PO HS 12/26/17 04/18/18 History Letrozole [Femara] 2.5 mg PO HS 01/26/18 04/18/18 History Suvorexant [Belsomra] 5 mg PO HS PRN 04/14/18 04/18/18 History Allergies Allergy/AdvReac Type Severity Reaction Status Date / Time Penicillins Allergy Swelling Verified 04/14/18 10:34 Surgical - Exam Vital Signs Temp Pulse Resp BP Pulse Ox 98.0 F 62 16 157/59 97 04/18/18 08:59 04/18/18 08:59 04/18/18 08:59 04/18/18 08:59 04/18/18 08:59 - General well developed, no distress - Eyes PERRL - ENT normal pinna - Neck no masses - Respiratory normal expansion - Cardiovascular Rhythm: regular - Abdomen Colostomy left lower quadrant Abdomen: soft, non tender Assessment and Plan Assessment: History of perforated diverticulitis. We'll perform colonoscopy.
--- NOTE | 2018-04-18 09:32 | P.OP ---
Date of Procedure: 04/18/18 Preoperative Diagnosis: History of perforated diverticulitis Postoperative Diagnosis: Diverticulosis Anesthesia: MAC Surgeon: Juliano Guido Pathology: none sent Condition: stable Disposition: PACU Description of Procedure: The patient's placed on the endoscopy table in the lateral position. She received IV sedation. Digital rectal exam was performed which revealed no rebound is. The flexible colonoscope was then placed patient anus passed throughout colon. The patient a previous Rivka procedure. The rectal stump measured approximately 18 cm. There is known to any pathology. Next the colonoscope was then placed through the colostomy. The scope was advanced through the colon. The ileocecal valve sutures. The cecum, ascending and transverse colon appeared normal. In the descending colon there was a few scattered diverticula. At the level of colostomy there was a few diverticula seen. Scope was withdrawn for patient.
[2018-04-18 10:00] VITALS: BP 167/85; PULSE 61
== END 2018-04-18 10:35 | disposition home or self-care (01) ==
LOC: ORWHC2ENDO 08:22
PROVIDERS: ATTEND Surgery
DX: K57.30 Diverticulosis of large intestine without perforation or abscess without bleeding (principal); Z93.3 Colostomy status; Z90.49 Acquired absence of other specified parts of digestive tract; E78.5 Hyperlipidemia, unspecified; I10 Essential (primary) hypertension; M85.80 Other specified disorders of bone density and structure, unspecified site; G62.9 Polyneuropathy, unspecified; Z85.3 Personal history of malignant neoplasm of breast; Z85.828 Personal history of other malignant neoplasm of skin; Z90.11 Acquired absence of right breast and nipple; Z79.82 Long term (current) use of aspirin; Z79.899 Other long term (current) drug therapy; Z88.0 Allergy status to penicillin; Z87.891 Personal history of nicotine dependence
CPT/HCPCS: 44388; 45330; J2001; J2704

== ENCOUNTER 2018-04-19 10:15 | Inpatient (IN) | payer MEDICARE ==
[2018-04-11 14:55] LABS: HCT 43.1 % (34.0-46.0); HGB 14.7 gm/dL (11.4-16.0); MCH 30.9 pg (25.0-35.0); MCHC 34.2 g/dL (31.0-37.0); Mean Platelet Volume 6.2; Platelet Count 363 k/uL (150-450); RBC 4.77 m/uL (3.80-5.40); RDW 13.1 % (11.5-15.5); WBC 13.2 k/uL (3.8-10.6)
[2018-04-11 15:04] LABS: MCV 90.3 fL (80.0-100.0)
[2018-04-11 15:10] LABS: Potassium 4.1 mmol/L (3.5-5.1)
[2018-04-14 10:41] VITALS: BMI 18.4
[~2018-04-19 10:15] MED LIST changes: +CLINDAMYCIN 900 MG in DEXTROSE 5% IN WATER 50 ML IVPB ONE; +DEXAMETHASONE SOD PHOSPHATE 10 MG/ML 1 ML VIAL IV ONE; +GENTAMICIN IVPB ONE; +HEPARIN SODIUM,PORCINE 5,000 UNIT/ML 1 ML VIAL SQ ONE; +HYDROmorphone 0.5 MG/0.5 ML SYRINGE IVP PRN; -LACTATED RINGERS 1,000 ML IV SCH; -LIDOCAINE 1% 20 ML VIAL (10MG/ML) FOR IV START INTRADERMA PRN; -MIDAZOLAM 2 MG/2 ML VIAL IV PRN; +MORPHINE SULFATE 2 MG/ML SYRINGE IV PRN; +ONDANSETRON 4 MG/2 ML VIAL IVP ONE; +ONDANSETRON 4 MG/2 ML VIAL IVP PRN; +SODIUM CHLORIDE 0.9% IVPB ONE
[2018-04-19] MEDS ORDERED: LIDOCAINE 1% 20 ML VIAL (10MG/ML) FOR IV START INTRADERMA ONE (11:50)
[2018-04-19] MEDS: LACTATED RINGERS 1,000 ML IV SCH (11:55)
[2018-04-19] MEDS: MIDAZOLAM 2 MG/2 ML VIAL IV PRN ×2 (12:09→15:20)
[2018-04-19 12:16] LABS: Prothrombin Time 10.2 sec (9.0-12.0)
[2018-04-19] MEDS ORDERED: diphenhydrAMINE 50 MG/ML 1 ML VIAL IVP PRN (12:50)
[2018-04-19] MEDS ORDERED: NALOXONE 0.4 MG/ML 1 ML VIAL IV PRN (12:50)
[2018-04-19] MEDS ORDERED: ROPIVACAINE 250 MG, HYDROMORPHONE (PF) 5 MG in SODIUM CHLORIDE 0.9% 200 ML EPIDURAL PRN (12:50)
--- NOTE | 2018-04-19 13:03 | P.GSHP ---
History of Present Illness H&P Date: 04/19/18 Chief Complaint: History of perforated diverticulitis This is a 67-year-old female who presents today for reversal of colostomy. Patient has previous history of her diverticulitis with Rivka procedure. 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 feet after taking flagyl-steroid injection today for History of Any Multi-Drug Resistant Organisms: None Reported Past Surgical History: Bowel Resection, Heart Catheterization Additional Past Surgical History / Comment(s): rt mastectomy, skin cancer removed, colostomy January 2018 Past Anesthesia/Blood Transfusion Reactions: No Reported Reaction Smoking Status: Former smoker - Past Family History Father History Unknown: Yes Mother Family Medical History: Dementia Medications and Allergies Home Medications Medication Instructions Recorded Confirmed Type Aspirin 81 mg PO HS 12/26/17 04/19/18 History Isosorbide Mononitrate ER [Imdur] 30 mg PO HS 12/26/17 04/19/18 History Metoprolol Succinate (ER) [Toprol 50 mg PO HS 12/26/17 04/19/18 History XL] Simvastatin [Zocor] 40 mg PO HS 12/26/17 04/19/18 History Letrozole [Femara] 2.5 mg PO HS 01/26/18 04/19/18 History Suvorexant [Belsomra] 5 mg PO HS PRN 04/14/18 04/19/18 History Allergies Allergy/AdvReac Type Severity Reaction Status Date / Time metronidazole [From Flagyl] Allergy Unknown Verified 04/19/18 11:26 Penicillins Allergy Swelling Verified 04/19/18 11:27 Surgical - Exam Vital Signs Temp Pulse Resp BP Pulse Ox 98.3 F 100 16 157/90 95 04/19/18 11:34 04/19/18 11:34 04/19/18 11:34 04/19/18 11:34 04/19/18 11:34 - General well developed, no distress - Eyes PERRL - ENT normal pinna - Neck no masses - Respiratory normal expansion - Cardiovascular Rhythm: regular - Abdomen Colostomy in left lower quadrant Abdomen: soft, non tender Results - Labs 04/11/18 14:15 04/19/18 11:50 Diabetes panel 04/19/18 Range/Units 11:50 Potassium 4.0 (3.5-5.1) mmol/L Pituitary panel 04/19/18 Range/Units 11:50 Potassium 4.0 (3.5-5.1) mmol/L Adrenal panel 04/19/18 Range/Units 11:50 Potassium 4.0 (3.5-5.1) mmol/L Assessment and Plan Assessment: Perforated diverticulitis. Patient will undergo reversal plus. Patient aware the risk of anastomotic dehiscence and possible colostomy.
[2018-04-19] MEDS ORDERED: ePHEDrine SULFATE/0.9% NACL/PF 50 MG/5 ML SYRINGE IV ONE (13:05)
[2018-04-19] MEDS ORDERED: MIDAZOLAM 2 MG/2 ML VIAL ONE (13:05)
[2018-04-19] MEDS ORDERED: SUCCINYLCHOLINE CHLORIDE 100 MG/5 ML SYR IV ONE (13:05)
[2018-04-19] MEDS ORDERED: ROCURONIUM BROMIDE 10 MG/ML 10 ML VIAL IV ONE (13:05)
[2018-04-19] MEDS ORDERED: NEOSTIGMINE 1 MG/ML 10 ML VIAL ONE (13:05)
[2018-04-19] MEDS ORDERED: PROPOFOL 10 MG/ML 20 ML VIAL IV ONE (13:05)
[2018-04-19] MEDS ORDERED: fentaNYL (PF) 50 MCG/ML 2 ML AMP ONE (13:05)
[2018-04-19] MEDS ORDERED: HEPARIN SODIUM,PORCINE 5,000 UNIT/ML 1 ML VIAL ONE (13:05)
[2018-04-19] MEDS ORDERED: GLYCOPYRROLATE 0.2 MG/ML 2 ML VIAL ONE (13:05)
[2018-04-19] MEDS ORDERED: HYDROmorphone (PF) 1 MG/ML ONE (13:05)
[2018-04-19] MEDS ORDERED: LIDOCAINE 1% INJ 10MG/ML (20 ML MDV) ONE (13:05)
[2018-04-19] MEDS ORDERED: LACTATED RINGERS 1,000 ML IV ONE (13:59)
[2018-04-19] MEDS ORDERED: METOCLOPRAMIDE 5 MG/ML 2 ML VIAL IVP PRN (14:47)
[2018-04-19] MEDS ORDERED: ONDANSETRON 4 MG/2 ML VIAL IVP PRN (14:47)
--- NOTE | 2018-04-19 16:03 | P.OP ---
Date of Procedure: 04/19/18 Preoperative Diagnosis: History of perforated diverticulitis Postoperative Diagnosis: History of perforated diverticulitis Procedure(s) Performed: Reversal of colostomy Place of adhesions Partial colectomy Anesthesia: YODIT Surgeon: Juliano Guido Estimated Blood Loss (ml): 30 Pathology: other (:) Condition: stable Disposition: PACU Description of Procedure: The patient's placed on the operative table in the supine position. She received general anesthesia. Her abdomen was then prepped and draped in usual sterile fashion. The patient was placed in dorsal lithotomy position. The abdomen was entered through a low midline incision. The Bookwalter retractors placed a wound. There were adhesions of the small bowel to the anterior abdominal wall these were lysed with sharp dissection. The colostomy was then divided at the fascial level using the GI stapler. At this point the left colon was mobilized. Next, the rectal stump was visualized. There was extensive diverticular changes of the distal portion of the sigmoid colon. This was transected with a GI stapler and using LigaSure device the mesentery was divided and then the specimen was sent to pathology. A pursestring was applied to the proximal colon. The colon was quite small and a 25 mm EEA anvil was placed into the colon and the pursestring was secured. The EEA stapler was then placed the patient's anus and the spike was driven through the anterior rectal wall. The anvil was secured to the stapler of the stapler was then closed and fired. 2 intact tissue rings were withdrawn for stapler. Next using The rectal anastomosis was insufflated with air and a rigid sigmoidoscope. There is no extravasation of air under insufflation of the rectum. At this point the abdomen was irrigated. The fascia was then closed using clean and stress. Fascia closed with looped #1 PDS suture. Skin was closed adis. The colostomy site was then excised using left cautery and the fascial defect was closed with 0 Vicryl suture. The skin was then closed adis. Patient sent to recovery in stable condition.
[2018-04-19] MEDS: D5-0.45% NACL WITH KCL 20MEQ/L 1,000 ML IV SCH (17:01)
[2018-04-19 17:29] LABS: Basophils % (A) 0 %; Eosinophils % (A) 0 %; HGB 16.2 gm/dL (11.4-16.0); Lymphocytes # (A) 0.9 k/uL (1.0-4.8); Lymphocytes % (A) 3 %; MCH 30.4 pg (25.0-35.0); MCHC 33.7 g/dL (31.0-37.0); MCV 90.3 fL (80.0-100.0); Monocytes # (A) 0.8 k/uL (0-1.0); Monocytes % (A) 3 %; Neutrophils # (A) 25.3 k/uL (1.3-7.7); Neutrophils % (A) 94 %; Platelet Count 343 k/uL (150-450); RBC 5.31 m/uL (3.80-5.40)
[2018-04-19 17:43] LABS: Anion Gap 15 mmol/L; Blood Urea Nitrogen 19 mg/dL (7-17); Calcium 9.5 mg/dL (8.4-10.2); Carbon Dioxide 24 mmol/L (22-30); Chloride 104 mmol/L (98-107); Glucose 142 mg/dL (74-99); Potassium 4.3 mmol/L (3.5-5.1); Sodium 143 mmol/L (137-145)
[2018-04-20] MEDS ORDERED: HEPARIN SODIUM,PORCINE 5,000 UNIT/ML 1 ML VIAL ONE (00:55)
[2018-04-20 07:31] LABS: Basophils % (A) 0 %; Eosinophils % (A) 0 %; HCT 39.2 % (34.0-46.0); HGB 13.5 gm/dL (11.4-16.0); Lymphocytes # (A) 1.9 k/uL (1.0-4.8); Lymphocytes % (A) 9 %; MCH 31.1 pg (25.0-35.0); MCHC 34.5 g/dL (31.0-37.0); MCV 90.4 fL (80.0-100.0); Mean Platelet Volume 6.6; Monocytes # (A) 1.3 k/uL (0-1.0); Monocytes % (A) 6 %; Neutrophils # (A) 18.4 k/uL (1.3-7.7); Neutrophils % (A) 85 %; Platelet Count 342 k/uL (150-450); RBC 4.33 m/uL (3.80-5.40); RDW 13.2 % (11.5-15.5); WBC 21.8 k/uL (3.8-10.6)
[2018-04-20 07:55] LABS: ALT 25 U/L (9-52); AST 18 U/L (14-36); Albumin 3.3 g/dL (3.5-5.0); Alkaline Phosphatase 75 U/L (38-126); Anion Gap 10 mmol/L; Blood Urea Nitrogen 17 mg/dL (7-17); Carbon Dioxide 25 mmol/L (22-30); Chloride 103 mmol/L (98-107); Glucose 123 mg/dL (74-99); Potassium 4.6 mmol/L (3.5-5.1); Sodium 138 mmol/L (137-145); Total Bilirubin 0.4 mg/dL (0.2-1.3); Total Protein 5.4 g/dL (6.3-8.2)
[2018-04-20] MEDS: HEPARIN SODIUM,PORCINE 5,000 UNIT/ML 1 ML VIAL SQ SCH ×3 (08:00→15:29)
[2018-04-20] MEDS: ALVIMOPAN 12 MG CAPSULE PO SCH ×2 (08:01→20:06)
[2018-04-20] MEDS ORDERED: HYDROmorphone 0.5 MG/0.5 ML SYRINGE IVP PRN (08:43)
[2018-04-20] MEDS: LACTATED RINGERS 1,000 ML IV SCH (08:47)
[2018-04-20] MEDS: D5-0.45% NACL WITH KCL 20MEQ/L 1,000 ML IV SCH ×4 (09:24→20:37)
[2018-04-20] MEDS ORDERED: HYDROmorphone 4 MG TABLET PO PRN (09:28)
[2018-04-20] MEDS: HYDROmorphone 0.5 MG/0.5 ML SYRINGE IVP PRN ×3 (10:15→18:57)
[2018-04-20] MEDS: LEVOFLOXACIN 500MG-D5W PMX 500 MG in DEXTROSE/WATER 1 100ML.BAG IVPB SCH (10:16)
[2018-04-20] MEDS: ONDANSETRON 4 MG/2 ML VIAL IVP PRN ×2 (10:19→20:06)
[2018-04-20] MEDS: METOPROLOL SUCCINATE (ER) 50 MG TAB.ER.24H PO SCH (14:03)
[2018-04-20] MEDS: ISOSORBIDE MONONITRATE ER 30 MG TAB.ER.24H PO SCH (14:04)
--- NOTE | 2018-04-20 15:26 | P.CONS ---
History of Present Illness - Reason for Consult Consult date: 04/20/18 Medical management Requesting physician: Juliano Guido - Chief Complaint Status post reversal of colostomy - History of Present Illness This is a 67-year-old female with a known past medical history of perforated diverticulitis with abscess and had undergone Rivka procedure back in January. Also treated with antibiotics at that time. She has been doing well and she has been brought back into the hospital to have reversal of her colostomy. She has tolerated this procedure well. Patient also has a history of hyperlipidemia , breast cancer and hypertension. Postoperatively patient has been hypertensive. Blood pressure of 179/76. Her metoprolol and Imdur will be restarted. And IV fluids were decreased to 100 mL an hour. Patient also is complaining of some dizziness even though she had elevated blood pressure. Patient denies any fever or chills or sweats. Denies any vomiting but has had some nausea. Pain reports pain as tolerable. Denies any chest pain or shortness of breath. Has not had a bowel movement or passed gas yet. She has a wound VAC in place. 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 feet after taking flagyl-steroid injection today for History of Any Multi-Drug Resistant Organisms: None Reported Past Surgical History: Bowel Resection, Heart Catheterization Additional Past Surgical History / Comment(s): rt mastectomy, skin cancer removed, colostomy January 2018 Past Anesthesia/Blood Transfusion Reactions: No Reported Reaction Past Psychological History: No Psychological Hx Reported Smoking Status: Former smoker Past Alcohol Use History: Occasional Additional Past Alcohol Use History / Comment(s): started smoking at age 26 used to smoke 1 ppd, quit in January 2018 Past Drug Use History: None Reported - Past Family History Father History Unknown: Yes Mother Family Medical History: Dementia Medications and Allergies Home Medications Medication Instructions Recorded Confirmed Type Aspirin 81 mg PO HS 12/26/17 04/19/18 History Isosorbide Mononitrate ER [Imdur] 30 mg PO HS 12/26/17 04/19/18 History Metoprolol Succinate (ER) [Toprol 50 mg PO HS 12/26/17 04/19/18 History XL] Simvastatin [Zocor] 40 mg PO HS 12/26/17 04/19/18 History Letrozole [Femara] 2.5 mg PO HS 01/26/18 04/19/18 History Suvorexant [Belsomra] 5 mg PO HS PRN 04/14/18 04/19/18 History Allergies Allergy/AdvReac Type Severity Reaction Status Date / Time metronidazole [From Flagyl] Allergy Unknown Verified 04/19/18 16:44 Penicillins Allergy Swelling Verified 04/19/18 16:44 Physical Exam Vitals: Vital Signs Temp Pulse Pulse Resp BP Pulse Ox 04/20/18 14:52 97.9 F 57 L 16 154/63 96 04/20/18 14:00 57 L 171/77 04/20/18 12:53 96.9 F L 55 L 18 179/76 97 04/20/18 07:00 98.8 F 67 14 158/88 98 04/20/18 00:21 97.8 F 66 15 111/54 96 04/20/18 00:00 15 04/19/18 20:00 79 67 18 04/19/18 19:00 67 122/69 97 04/19/18 18:21 79 128/64 98 04/19/18 18:15 82 128/64 98 04/19/18 18:00 66 130/72 99 04/19/18 17:45 67 130/72 100 04/19/18 17:30 89 162/83 99 04/19/18 17:15 88 162/63 96 04/19/18 17:00 89 169/73 99 04/19/18 16:45 97.7 F 62 21 169/73 100 04/19/18 16:00 63 16 132/66 100 04/19/18 15:45 54 L 12 136/60 100 04/19/18 15:30 57 L 12 143/63 100 Intake and Output 04/20/18 04/20/18 04/20/18 06:59 14:59 22:59 Intake Total 2400 Output Total 500 Balance -500 2400 Intake: Intake, IV Titration 1800 Amount D5-0.45% NaCl with KCl 1700 20Meq/l 1,000 ml @ 100 mls/hr IV .Q10H [facility] Rx#: [id number] Levofloxacin 500Mg-D5w 100 Pmx 500 mg In Dextrose/ Water 1 100ml.bag @ 100 mls/hr IVPB Q24HR [facility] Rx# :[id number] Blood Product 600 Output: Urine 500 Other: Voiding Method Indwelling Catheter Weight 45.813 kg Head normocephalic Neck supple Lungs clear to auscultation bilaterally no wheezing or crackles Heart regular rate and rhythm S1-S2, no rub or gallop Abdomen is soft wound VAC in place dressing is clean dry and intact no evidence of any erythema or redness. Hypoactive bowel sounds Extremities no edema Neuro alert and orientated to 3 Results CBC & Chem 7: 04/20/18 06:30 04/20/18 06:30 Labs: Abnormal Lab Results - Last 24 Hours (Table) 04/19/18 04/19/18 04/20/18 Range/Units 17:12 17:12 06:30 WBC 27.0 H* 21.8 H (3.8-10.6) k/uL Hgb 16.2 H (11.4-16.0) gm/dL Hct 48.0 H (34.0-46.0) % Neutrophils # 25.3 H 18.4 H (1.3-7.7) k/uL Lymphocytes # 0.9 L (1.0-4.8) k/uL Monocytes # 1.3 H (0-1.0) k/uL BUN 19 H (7-17) mg/dL Glucose 142 H (74-99) mg/dL Total Protein (6.3-8.2) g/dL Albumin (3.5-5.0) g/dL 04/20/18 Range/Units 06:30 WBC (3.8-10.6) k/uL Hgb (11.4-16.0) gm/dL Hct (34.0-46.0) % Neutrophils # (1.3-7.7) k/uL Lymphocytes # (1.0-4.8) k/uL Monocytes # (0-1.0) k/uL BUN (7-17) mg/dL Glucose 123 H (74-99) mg/dL Total Protein 5.4 L (6.3-8.2) g/dL Albumin 3.3 L (3.5-5.0) g/dL Assessment and Plan Assessment: 1. Perforated diverticulitis with abscess and previous Rivka procedure in January. Patient is now status post colostomy reversal. Continue postop orders per surgical service. 2. Essential hypertension with elevated blood pressures. Resume metoprolol and Imdur. Decrease IV fluids. Continue to monitor 3. History of breast cancer in 2017 status post mastectomy continue the Femara 4. Hyperlipidemia: Zocor on hold due to patient being nothing by mouth DVT prophylaxis subcu heparin GI prophylaxis Protonix Thank you for this consultation. We will continue to follow along with patient during her hospitalization Time with Patient: Greater than 30 (Greater than 60% of the total time spent in counseling and coordination of care.I performed an examination of the patient and discussed their management with the physician Single [employer] Cutter. I have reviewed the Physician Single [employer] Cutter's notes and agree with the documented findings and plan of care)
--- NOTE | 2018-04-20 16:29 | P.PN ---
Subjective Progress Note Date: 04/20/18 67-year-old female sitting up in bed stating pain medication effective for pain control. Reports of nausea vomiting. States is hungry is anxious to have a diet placed. States is not passing gas has not had a bowel movement. Patient states she had a colonoscopy [place] this week in preparation for the surgery has been maintained on clear liquids. Surgical dressing currently dry has a prevera system in place 04/19/2018 reversal of colostomy, lysis of adhesion, partial colectomy, for perforated diverticulitis Objective - Vital Signs Vital signs: Vital Signs Temp 97.9 F 04/20/18 14:52 Pulse 57 L 04/20/18 14:52 Resp 16 04/20/18 14:52 BP 154/63 04/20/18 14:52 Pulse Ox 96 04/20/18 14:52 Intake & Output 04/19/18 04/20/18 04/20/18 18:59 06:59 18:59 Intake Total 1861.6 1100 2400 Output Total 520 500 Balance 1341.6 600 2400 Weight 45.813 kg 45.813 kg Intake: IV 1861.6 Intake, IV Titration 1000 1800 Amount D5-0.45% NaCl with KCl 1000 1700 20Meq/l 1,000 ml @ 100 mls/hr IV .Q10H [facility] Rx#: [id number] Levofloxacin 500Mg-D5w 100 Pmx 500 mg In Dextrose/ Water 1 100ml.bag @ 100 mls/hr IVPB Q24HR [facility] Rx# :[id number] Oral 100 Blood Product 600 Output: Urine 420 500 Estimated Blood Loss 100 Other: Voiding Method Indwelling Catheter Indwelling Catheter - Exam Physical exam 67-year-old female sitting up in bed talkative pleasant oriented 3 Lungs adequate air movement bilaterally on room air Heart S1-S2 audible and regular denying chest pain Abdomen surgical dressing dry hypoactive bowel tones soft surgical tenderness appropriate prevera wound system in place Extremities no edema noted - Labs CBC & Chem 7: 04/20/18 06:30 04/20/18 06:30 Labs: Abnormal Lab Results - Last 24 Hours (Table) 04/19/18 04/19/18 04/20/18 Range/Units 17:12 17:12 06:30 WBC 27.0 H* 21.8 H (3.8-10.6) k/uL Hgb 16.2 H (11.4-16.0) gm/dL Hct 48.0 H (34.0-46.0) % Neutrophils # 25.3 H 18.4 H (1.3-7.7) k/uL Lymphocytes # 0.9 L (1.0-4.8) k/uL Monocytes # 1.3 H (0-1.0) k/uL BUN 19 H (7-17) mg/dL Glucose 142 H (74-99) mg/dL Total Protein (6.3-8.2) g/dL Albumin (3.5-5.0) g/dL 04/20/18 Range/Units 06:30 WBC (3.8-10.6) k/uL Hgb (11.4-16.0) gm/dL Hct (34.0-46.0) % Neutrophils # (1.3-7.7) k/uL Lymphocytes # (1.0-4.8) k/uL Monocytes # (0-1.0) k/uL BUN (7-17) mg/dL Glucose 123 H (74-99) mg/dL Total Protein 5.4 L (6.3-8.2) g/dL Albumin 3.3 L (3.5-5.0) g/dL Assessment and Plan Assessment: Impression History of breast cancer right breast status post mastectomy 2016 Essential hypertension Perforated diverticulitis with abscess with the prior Rivka's procedure in January 2018 Status post 19 of April reversal of colostomy placement of adhesions partial colectomy done for perforated diverticulitis with abscess Leukocytosis suspect reactive Plan Continue postop surgical care Increase activity DVT and GI prophylaxis IV Levaquin as ordered IV fluid for hydration Pain control The above impression and plan of care have been discussed and directed by signing physician. Argelia Martinez nurse practitioner acting as scribe for signing physician.
[2018-04-20] MEDS: PANTOPRAZOLE 40 MG/10 ML VIAL IVP SCH (16:49)
[2018-04-20] MEDS: LETROZOLE 2.5 MG TAB PO SCH (20:06)
[2018-04-21] MEDS: HEPARIN SODIUM,PORCINE 5,000 UNIT/ML 1 ML VIAL SQ SCH ×4 (00:47→23:15)
[2018-04-21] MEDS: HYDROmorphone 0.5 MG/0.5 ML SYRINGE IVP PRN (06:10)
[2018-04-21] MEDS: LACTATED RINGERS 1,000 ML IV SCH (07:44)
[2018-04-21] MEDS: LEVOFLOXACIN 500MG-D5W PMX 500 MG in DEXTROSE/WATER 1 100ML.BAG IVPB SCH (08:08)
[2018-04-21] MEDS: PANTOPRAZOLE 40 MG/10 ML VIAL IVP SCH (08:08)
[2018-04-21] MEDS: ONDANSETRON 4 MG/2 ML VIAL IVP PRN (08:18)
[2018-04-21] MEDS: ALVIMOPAN 12 MG CAPSULE PO SCH ×2 (08:19→19:58)
[2018-04-21] MEDS: D5-0.45% NACL WITH KCL 20MEQ/L 1,000 ML IV SCH ×2 (08:20→20:04)
[2018-04-21 08:29] LABS: Basophils % (A) 0 %; Eosinophils # (A) 0.1 k/uL (0-0.7); Eosinophils % (A) 1 %; HCT 38.5 % (34.0-46.0); Lymphocytes # (A) 1.5 k/uL (1.0-4.8); Lymphocytes % (A) 9 %; MCH 30.6 pg (25.0-35.0); MCHC 33.7 g/dL (31.0-37.0); MCV 90.9 fL (80.0-100.0); Mean Platelet Volume 6.5; Monocytes # (A) 0.8 k/uL (0-1.0); Monocytes % (A) 5 %; Neutrophils # (A) 14.4 k/uL (1.3-7.7); Neutrophils % (A) 85 %; Platelet Count 277 k/uL (150-450); RBC 4.23 m/uL (3.80-5.40); RDW 13.8 % (11.5-15.5); WBC 16.9 k/uL (3.8-10.6)
[2018-04-21 08:35] LABS: ALT 21 U/L (9-52); AST 15 U/L (14-36); Alkaline Phosphatase 71 U/L (38-126); Anion Gap 7 mmol/L; Blood Urea Nitrogen 8 mg/dL (7-17); Carbon Dioxide 26 mmol/L (22-30); Chloride 102 mmol/L (98-107); Glucose 107 mg/dL (74-99); Potassium 4.2 mmol/L (3.5-5.1); Sodium 135 mmol/L (137-145); Total Bilirubin 0.4 mg/dL (0.2-1.3); Total Protein 5.3 g/dL (6.3-8.2)
--- NOTE | 2018-04-21 12:10 | P.PN ---
Subjective Progress Note Date: 04/21/18 67 show female seen and examined at bedside patient reports not able to ambulate in the hallway or sit up to a bedside commode secondary to the legs "they just give out tingling they've been like this for several months" patient states she cannot tolerate a clear liquid diet makes her sick to his thinking about it is asking for diet to be advanced. Bowel tones present no stool states not passing gas indwelling Sahu catheter in place. He should states she is hesitant to have the catheter removed because she could not get up to a bedside commode patient states that she did share with her PCP the tingly sensation she was experiencing was started on Neurontin in the outpatient setting with no improvement. Patient states that she was supposed to see a neurologist but the appointment has not been made to be evaluated for the numbness in the lower extremities 04/19/2018 reversal of colostomy, lysis of adhesion, partial colectomy, for perforated diverticulitis Objective - Vital Signs Vital signs: Vital Signs Temp 98.4 F 04/21/18 07:00 Pulse 59 L 04/21/18 07:00 Resp 14 04/21/18 07:00 BP 134/51 04/21/18 07:00 Pulse Ox 97 04/21/18 07:00 Intake & Output 04/20/18 04/21/18 04/21/18 18:59 06:59 18:59 Intake Total 2400 1450 160 Output Total 1600 1000 Balance 2400 -150 -840 Weight 45.813 kg Intake: Intake, IV Titration 1800 800 Amount D5-0.45% NaCl with KCl 1700 800 20Meq/l 1,000 ml @ 100 mls/hr IV .Q10H [facility] Rx#: [id number] Levofloxacin 500Mg-D5w 100 Pmx 500 mg In Dextrose/ Water 1 100ml.bag @ 100 mls/hr IVPB Q24HR [facility] Rx# :[id number] Oral 650 160 Blood Product 600 Output: Urine 1600 1000 Uretheral (Sahu) 1000 Other: Voiding Method Indwelling Catheter Indwelling Catheter Indwelling Catheter # Voids 2 - Exam Physical exam 67-year-old female sitting up in bed oriented 3 Lungs adequate air movement bilaterally on room air Heart S1-S2 audible and regular denying chest pain Abdomen surgical dressing dry soft surgical tenderness appropriate prevera wound system in place indwelling Sahu catheter in place bowel tones present passing gas no stool Extremities no sensory deficit noted to the lower extremities no edema noted no calf tenderness moves all extremities appropriately - Labs CBC & Chem 7: 04/21/18 07:19 04/21/18 07:19 Labs: Abnormal Lab Results - Last 24 Hours (Table) 04/21/18 04/21/18 Range/Units 07:19 07:19 WBC 16.9 H (3.8-10.6) k/uL Neutrophils # 14.4 H (1.3-7.7) k/uL Sodium 135 L (137-145) mmol/L Glucose 107 H (74-99) mg/dL Total Protein 5.3 L (6.3-8.2) g/dL Albumin 3.0 L (3.5-5.0) g/dL Assessment and Plan Assessment: Impression History of breast cancer right breast status post mastectomy 2016 Essential hypertension Perforated diverticulitis with abscess with the prior Rivka's procedure in January 2018 Status post 19 of April reversal of colostomy placement of adhesions partial colectomy done for perforated diverticulitis with abscess Leukocytosis suspect reactive Peripheral neuropathy suspect Plan Remove indwelling Sahu catheter no Consult neurology eval inability to ambulate PT OT eval Dietitian nutritional supplements Will advance diet to soft Continue postop surgical care Increase activity DVT and GI prophylaxis IV Levaquin as ordered IV fluid for hydration Pain control The above impression and plan of care have been discussed and directed by signing physician. Argelia Martinez nurse practitioner acting as scribe for signing physician.
[2018-04-21] MEDS: PREGABALIN 25 MG CAP PO SCH ×2 (13:55→19:58)
--- NOTE | 2018-04-21 14:19 | P.PN ---
Subjective Progress Note Date: 04/21/18 This is a 67-year-old female with a known past medical history of perforated diverticulitis with abscess and had undergone Rivka procedure back in January. Also treated with antibiotics at that time. She has been doing well and she has been brought back into the hospital to have reversal of her colostomy. She has tolerated this procedure well. Patient also has a history of hyperlipidemia , breast cancer and hypertension. Postoperatively patient has been hypertensive. Blood pressure of 179/76. Her metoprolol and Imdur will be restarted. And IV fluids were decreased to 100 mL an hour. Patient also is complaining of some dizziness even though she had elevated blood pressure. Patient denies any fever or chills or sweats. Denies any vomiting but has had some nausea. Pain reports pain as tolerable. Denies any chest pain or shortness of breath. Has not had a bowel movement or passed gas yet. She has a wound VAC in place. 04/21/2018 patient complaining of numbness in her bilateral feet. She reports that she has this neuropathy due to previously being on Flagyl. She is used Neurontin in the past with no improvement. She is agreeable to try Lyrica. Patient had reported that her fevers and was not able to work with physical therapy. Surgery has advanced her diet to a liquid diet. Still has not passed gas or had bowel movement yet. Still complaining of some nausea and dizziness. Objective - Vital Signs Vital signs: Vital Signs Temp 98 F 04/21/18 14:03 Pulse 55 L 04/21/18 14:03 Resp 16 04/21/18 14:03 BP 148/69 04/21/18 14:03 Pulse Ox 98 04/21/18 14:03 Intake & Output 04/20/18 04/21/18 04/21/18 18:59 06:59 18:59 Intake Total 2400 1450 960 Output Total 1600 1000 Balance 2400 -150 -40 Weight 45.813 kg Intake: Intake, IV Titration 1800 800 800 Amount D5-0.45% NaCl with KCl 1700 800 700 20Meq/l 1,000 ml @ 100 mls/hr IV .Q10H [facility] Rx#: [id number] Levofloxacin 500Mg-D5w 100 100 Pmx 500 mg In Dextrose/ Water 1 100ml.bag @ 100 mls/hr IVPB Q24HR [facility] Rx# :[id number] Oral 650 160 Blood Product 600 Output: Urine 1600 1000 Uretheral (Sahu) 1000 Other: Voiding Method Indwelling Catheter Indwelling Catheter Indwelling Catheter # Voids 2 1 - Exam Head normocephalic Neck supple Lungs clear to auscultation bilaterally no wheezing or crackles Heart regular rate and rhythm S1-S2, no rub or gallop Abdomen is soft nontender nondistended positive bowel sounds no hepatosplenomegaly. Wound VAC in place Extremities no edema. No discoloration to the feet. Warm to touch. Tenderness with palpation of the toes. Neuro alert and orientated to 3 - Labs CBC & Chem 7: 04/21/18 07:19 04/21/18 07:19 Labs: Abnormal Lab Results - Last 24 Hours (Table) 04/21/18 04/21/18 Range/Units 07:19 07:19 WBC 16.9 H (3.8-10.6) k/uL Neutrophils # 14.4 H (1.3-7.7) k/uL Sodium 135 L (137-145) mmol/L Glucose 107 H (74-99) mg/dL Total Protein 5.3 L (6.3-8.2) g/dL Albumin 3.0 L (3.5-5.0) g/dL Assessment and Plan Assessment: 1. Perforated diverticulitis with abscess and previous Rivka procedure in January. Patient is now status post colostomy reversal. Continue postop orders per surgical service. Surgery has advanced diet to liquid diet 2. Essential hypertension with elevated blood pressures. Blood pressures have shown improvement. Continue with the metoprolol and Imdur 3. History of breast cancer in 2017 status post mastectomy continue the Femara 4. Hyperlipidemia: Zocor on hold due to patient being nothing by mouth 5. Peripheral neuropathy: We'll try Lyrica 25 mg twice a day. Agree with neurology consult DVT prophylaxis subcu heparin GI prophylaxis Protonix I performed an examination of the patient and discussed their management with the physician Stroke Belt Sander Operator. I have reviewed the Physician Stroke Belt Sander Operator's notes and agree with the documented findings and plan of care
[2018-04-21] MEDS: HYDROcodone/APAP 7.5-325MG 1 EACH TAB PO PRN ×2 (17:34→23:16)
--- NOTE | 2018-04-21 17:40 | P.CNNES ---
History of Present Illness Consult date: 04/21/18 Reason for Consult: Patient with worsening peripheral neuropathy. History of Present Illness: This patient is a 67-year-old right-handed white female who was [facility] to [facility] is elective surgery for reversal of colostomy. She has a history of multiple medical problems including history of perforated diverticulitis and abscess which was treated in January 2018. She has a history of breast cancer and underwent mastectomy in 2016. She mentions that she was treated for her diverticulitis in November of this year and was given 8 days of IV Flagyl. She was subsequently placed on Flagyl 500 mg by mouth 3 times a day for 6 weeks. Following this course of therapy in January she began experiencing paresthesias and numbness on her feet and fingertips. Her symptoms have been progressively worsening. She was seen by her primary care physician who suggested this could be peripheral neuropathy. She was given Neurontin 300 mg twice a day but this was not of much help. About 3 weeks ago she went in to see her primary physician due to the severity of the pain in the hands and feet and was given 2 doses of steroid injection which did seem to help significantly reduce her pain symptoms. She stopped the Neurontin immediately after this however her pain has now returned. Since admission to hospital she is complaining of paresthesias and tingling on the bottoms of her feet and in her fingertips. This has been ongoing for months according to the patient. She did stop the Neurontin only after 2 weeks of therapy and this may have been insufficient for adequate trial of effectiveness. She was started on Lyrica today by the primary care physician Dr. Dove at a dose of 25 mg by mouth twice a day. We suggest to continue with Lyrica as this is helpful for treatment of neuropathic pain. We have recommended that hopefully we can try to increase her dose of Lyrica to 50 mg by mouth twice a day prior to her discharge. She is being followed closely by surgery. Her colostomy reversal has gone well. Plan is for possible discharge home on Tuesday of this coming week. The patient states she is able to ambulate today with the help of physical therapy. Would continue to work on increase mobility and activity for her as she tolerates. Patient will require further evaluation with EMG study in the outpatient setting once she is discharged. She may require further investigation with muscle nerve biopsy as well depending on her response. The patient is at risk for inflammatory neuropathy as well given her history of inflammatory bowel disease. We have recommended she be tested for vitamin B12 as well as hemoglobin A1c and vitamin D levels. These will be drawn for her tomorrow morning. Would continue with physical therapy evaluation for this patient during this admission. As noted she can follow-up in the outpatient neurology clinic for further evaluation including EMG testing and further recommendations. We encouraged patient to work with physical therapy and try to ambulate especially can. We will follow along with the other specialists for this patient during this admission. Neurology is now been consulted for further evaluation and recommendations. Review of Systems Constitutional: Denies chills, Denies fever Eyes: denies blurred vision, denies pain Ears, nose, mouth and throat: Denies headache, Denies sore throat Cardiovascular: Denies chest pain, Denies shortness of breath Respiratory: Denies cough Gastrointestinal: Denies abdominal pain, Denies diarrhea, Denies nausea, Denies vomiting Genitourinary: Denies dysuria, Denies hematuria Musculoskeletal: Denies myalgias Integumentary: Denies pruritus, Denies rash Neurological: Reports gait dysfunction, Reports paresthesias, Reports tingling, Denies numbness, Denies weakness Psychiatric: Denies anxiety, Denies depression Endocrine: Denies fatigue, Denies weight change Past Medical History Past Medical History: Cancer, Hyperlipidemia, Hypertension Additional Past Medical History / Comment(s): 2017 right breast cancer(sx only) , osteopenia, skin cancer-basal cell on cheek), abscess of diverticuli in colon- colostomy January, developed neuropathy in extremities jaquan. feet after taking flagyl-steroid injection today for History of Any Multi-Drug Resistant Organisms: None Reported Past Surgical History: Bowel Resection, Heart Catheterization Additional Past Surgical History / Comment(s): rt mastectomy, skin cancer removed, colostomy January 2018 Past Anesthesia/Blood Transfusion Reactions: No Reported Reaction Past Psychological History: No Psychological Hx Reported Smoking Status: Former smoker Past Alcohol Use History: Occasional Additional Past Alcohol Use History / Comment(s): started smoking at age 26 used to smoke 1 ppd, quit in January 2018 Past Drug Use History: None Reported - Past Family History Father History Unknown: Yes Mother Family Medical History: Dementia Medications and Allergies Home Medications Medication Instructions Recorded Confirmed Type Aspirin 81 mg PO HS 12/26/17 04/19/18 History Isosorbide Mononitrate ER [Imdur] 30 mg PO HS 12/26/17 04/19/18 History Metoprolol Succinate (ER) [Toprol 50 mg PO HS 12/26/17 04/19/18 History XL] Simvastatin [Zocor] 40 mg PO HS 12/26/17 04/19/18 History Letrozole [Femara] 2.5 mg PO HS 01/26/18 04/19/18 History Suvorexant [Belsomra] 5 mg PO HS PRN 04/14/18 04/19/18 History Allergies Allergy/AdvReac Type Severity Reaction Status Date / Time metronidazole [From Flagyl] Allergy Unknown Verified 04/19/18 16:44 Penicillins Allergy Swelling Verified 04/19/18 16:44 Physical Examination - Vital Signs Vital Signs: Vital Signs Temp Pulse Resp BP BP Pulse Ox 04/21/18 14:03 98 F 55 L 16 148/69 98 04/21/18 07:00 98.4 F 59 L 14 134/51 97 04/21/18 00:00 16 04/20/18 20:39 97.9 F 60 16 127/65 96 04/20/18 20:00 60 16 Intake and Output 04/21/18 04/21/18 04/21/18 06:59 14:59 22:59 Intake Total 1450 960 Output Total 1600 1000 Balance -150 -40 Intake: Intake, IV Titration 800 800 Amount D5-0.45% NaCl with KCl 800 700 20Meq/l 1,000 ml @ 100 mls/hr IV .Q10H [facility] Rx#: [id number] Levofloxacin 500Mg-D5w 100 Pmx 500 mg In Dextrose/ Water 1 100ml.bag @ 100 mls/hr IVPB Q24HR [facility] Rx# :[id number] Oral 650 160 Output: Urine 1600 1000 Uretheral (Sahu) 1000 Other: Voiding Method Indwelling Catheter Indwelling Catheter Toilet # Voids 1 2 - Constitutional General appearance: cooperative, thin - EENT EENT: PERRL, mucous membranes moist - Respiratory Respiratory: lungs clear, normal breath sounds - Cardiovascular Cardiovascular: regular rate, normal S1, normal S2 Extremities: no peripheral edema bilaterally - Gastrointestinal Gastrointestinal: normoactive bowel sounds - Integumentary Integumentary: normal - Neurologic Cranial nerve examination: PERRL, EOMI, VFF, V1/V2/V3 grossly intact, face symmetric, tongue midline, intact gag reflex, intact corneal reflex, normal palatal elevation Speech examination: intact Sensorimotor examination: intact Motor examination - right side: 4/5: biceps, triceps, wrist flexion, wrist extension, grants analyst, hip flexors, knee extensors, dorsiflexion, toe extension (EHL) , plantarflexion Motor examination - left side: 4/5: biceps, triceps, wrist flexion, wrist extension, grants analyst, hip flexors, knee extensors, dorsiflexion, toe extension (EHL) , plantarflexion Detailed sensory examination: intact Reflex and gait examination: intact Reflexes: 1+: ankle, bicep, knee, tricep - Musculoskeletal Musculoskeletal: no pain - Psychiatric Psychiatric: mood/affect appropriate, cooperative Results - Laboratory Findings CBC and BMP: 04/21/18 07:19 04/21/18 07:19 Abnormal Lab Findings: Abnormal Labs 04/11/18 04/19/18 04/19/18 14:15 17:12 17:12 WBC 13.2 H 27.0 H* Hgb 16.2 H Hct 48.0 H Neutrophils # 25.3 H Lymphocytes # 0.9 L Monocytes # Sodium BUN 19 H Glucose 142 H Total Protein Albumin 04/20/18 04/20/18 04/21/18 06:30 06:30 07:19 WBC 21.8 H 16.9 H Hgb Hct Neutrophils # 18.4 H 14.4 H Lymphocytes # Monocytes # 1.3 H Sodium BUN Glucose 123 H Total Protein 5.4 L Albumin 3.3 L 04/21/18 07:19 WBC Hgb Hct Neutrophils # Lymphocytes # Monocytes # Sodium 135 L BUN Glucose 107 H Total Protein 5.3 L Albumin 3.0 L Assessment and Plan (1) Acute sensory neuropathy Current Visit: Yes Status: Acute Code(s): G61.0 - GUILLAIN-BARRE SYNDROME SNOMED Code(s): 73490996 (2) Status post colostomy takedown Current Visit: Yes Status: Acute Code(s): Z98.890 - OTHER SPECIFIED POSTPROCEDURAL STATES SNOMED Code(s): 14459597376222533 (3) History of breast cancer Current Visit: Yes Status: Acute Code(s): Z85.3 - PERSONAL HISTORY OF MALIGNANT NEOPLASM OF BREAST SNOMED Code(s): 603588126 (4) Diverticulitis Current Visit: Yes Status: Acute Code(s): K57.92 - DVTRCLI OF INTEST, PART UNSP, W/O PERF OR ABSCESS W/O BLEED SNOMED Code(s): 956983388 Plan: This patient is a 67-year-old female who was admitted to hospital for reversal of colostomy. She was admitted on 04/19/2018. She has been complaining of ongoing symptoms of peripheral neuropathy. She feels this is secondary to her use of Flagyl over the early months of November and December of this year following treatment of a diverticular abscess. Patient was placed on Neurontin 300 mg twice a day but this was not helpful for her neuropathic pain symptoms. She received 2 doses of steroid at her primary care physician's office which did help relieve much of her pain symptoms but they have not recurred. Patient stopped taking Neurontin only after 2 weeks of trial. She has been started on Lyrica 25 mg by mouth twice a day and should continue on the same. Medical history is highly suggesting peripheral neuropathy as a cause of her symptoms. She has very much maintained reflexes in both upper and lower extremities which is a good sign not indicating acute demyelinating disease. She may have some underlying inflammatory neuropathy given her history of irritable bowel syndrome. We have recommended laboratory testing to be done for this patient. She has no evidence of myalgias and continues to take simvastatin for treatment of her hyperlipidemia. This does not seem to be cause for her current symptoms. Patient will need outpatient EMG study for further evaluation and characterization of her neuropathy. We have recommended the patient to stay on Lyrica and with slow titration over the next several weeks to see if she can maximize her response. She may require muscle nerve biopsy but we will need to monitor her course over the next few weeks. Patient is to continue to work with physical therapy during this admission and to increase her activity as she tolerates. She was able to get up and ambulate today with physical therapy with the use of her walker. This was discussed at length today with Dr. Dove her admitting physician. He is in agreement with our current treatment plan. Her overall prognosis at this time remains guarded. We will continue close neurological follow-up for the patient during this admission. Time with Patient: Greater than 30
[2018-04-21] MEDS: METOPROLOL SUCCINATE (ER) 50 MG TAB.ER.24H PO SCH (19:58)
[2018-04-21] MEDS: ISOSORBIDE MONONITRATE ER 30 MG TAB.ER.24H PO SCH (19:58)
[2018-04-21] MEDS: LETROZOLE 2.5 MG TAB PO SCH (19:58)
[2018-04-22] MEDS: D5-0.45% NACL WITH KCL 20MEQ/L 1,000 ML IV SCH ×2 (04:11→04:46)
[2018-04-22] MEDS: HYDROcodone/APAP 7.5-325MG 1 EACH TAB PO PRN ×2 (07:31→15:07)
[2018-04-22] MEDS: ONDANSETRON 4 MG/2 ML VIAL IVP PRN (07:32)
[2018-04-22] MEDS: HEPARIN SODIUM,PORCINE 5,000 UNIT/ML 1 ML VIAL SQ SCH ×2 (07:33→15:04)
[2018-04-22 07:57] LABS: Basophils % (A) 0 %; Eosinophils # (A) 0.3 k/uL (0-0.7); Eosinophils % (A) 2 %; HGB 12.8 gm/dL (11.4-16.0); Lymphocytes # (A) 1.6 k/uL (1.0-4.8); Lymphocytes % (A) 11 %; MCHC 32.9 g/dL (31.0-37.0); MCV 91.4 fL (80.0-100.0); Mean Platelet Volume 6.9; Monocytes # (A) 0.8 k/uL (0-1.0); Monocytes % (A) 5 %; Neutrophils # (A) 11.3 k/uL (1.3-7.7); Neutrophils % (A) 81 %; Platelet Count 264 k/uL (150-450); RBC 4.26 m/uL (3.80-5.40); RDW 13.3 % (11.5-15.5)
[2018-04-22] MEDS: PANTOPRAZOLE 40 MG TABLET PO SCH (08:04)
[2018-04-22] MEDS: LEVOFLOXACIN 500 MG TAB PO SCH (08:04)
[2018-04-22] MEDS: ALVIMOPAN 12 MG CAPSULE PO SCH ×2 (08:04→21:12)
[2018-04-22 08:10] LABS: ALT 25 U/L (9-52); AST 15 U/L (14-36); Albumin 3.1 g/dL (3.5-5.0); Alkaline Phosphatase 74 U/L (38-126); Anion Gap 8 mmol/L; Blood Urea Nitrogen 6 mg/dL (7-17); Calcium 9.5 mg/dL (8.4-10.2); Carbon Dioxide 27 mmol/L (22-30); Chloride 104 mmol/L (98-107); Glucose 103 mg/dL (74-99); Potassium 4.4 mmol/L (3.5-5.1); Sodium 139 mmol/L (137-145); Total Bilirubin 0.4 mg/dL (0.2-1.3); Total Protein 5.5 g/dL (6.3-8.2)
[2018-04-22] MEDS: PREGABALIN 25 MG CAP PO SCH ×2 (10:20→21:12)
--- NOTE | 2018-04-22 11:05 | P.PN ---
Subjective Progress Note Date: 04/22/18 The patient is status post colostomy reversal. She feels stronger today than yesterday. She tolerated liquids. No reports of moderate abdominal pain. No nausea and vomiting. She has no complaints. Objective - Vital Signs Vital signs: Vital Signs Temp 97.7 F 04/22/18 07:00 Pulse 50 L 04/22/18 07:00 Resp 18 04/22/18 07:00 BP 123/65 04/22/18 07:00 Pulse Ox 97 04/22/18 02:47 Intake & Output 04/21/18 04/22/18 04/22/18 18:59 06:59 18:59 Intake Total 960 1600 Output Total 1000 Balance -40 1600 Intake: Intake, IV Titration 800 1600 Amount D5-0.45% NaCl with KCl 700 1600 20Meq/l 1,000 ml @ 100 mls/hr IV .Q10H [facility] Rx#: [id number] Levofloxacin 500Mg-D5w 100 Pmx 500 mg In Dextrose/ Water 1 100ml.bag @ 100 mls/hr IVPB Q24HR [facility] Rx# :[id number] Oral 160 Output: Urine 1000 Uretheral (Sahu) 1000 Other: Voiding Method Toilet Toilet # Voids 2 3 - Exam GENERAL: Well developed and in no acute distress. Pleasant. HEENT: No sclera icterus. Extraocular movements grossly intact. Moist buccal mucosa. Head is atraumatic, normocephalic. Hears conversational speech. No nasal drainage. NECK: Supple without lymphadenopathy. No JV distention. CHEST: Non-labored respirations and equal bilateral excursions. CARDIOVASCULAR: Regular rate and rhythm. Palpable 2+ radial pulses. ABDOMEN: Soft, nontender. Nondistended. Wound VAC dressing clean dry and intact with appropriate suction. MUSCULOSKELETAL: No clubbing, cyanosis or edema. NEUROLOGIC: No focal or lateralizing signs. PSYCH: Appropriate affect. Alert and oriented to person, place and time. SKIN: Good skin turgor. Well perfused. - Labs CBC & Chem 7: 04/22/18 07:03 04/22/18 07:03 Labs: Abnormal Lab Results - Last 24 Hours (Table) 04/22/18 04/22/18 Range/Units 07:03 07:03 WBC 14.0 H (3.8-10.6) k/uL Neutrophils # 11.3 H (1.3-7.7) k/uL BUN 6 L (7-17) mg/dL Creatinine 0.51 L (0.52-1.04) mg/dL Glucose 103 H (74-99) mg/dL Total Protein 5.5 L (6.3-8.2) g/dL Albumin 3.1 L (3.5-5.0) g/dL Assessment and Plan (1) Diverticulitis Current Visit: Yes Status: Acute Code(s): K57.92 - DVTRCLI OF INTEST, PART UNSP, W/O PERF OR ABSCESS W/O BLEED SNOMED Code(s): 137172033 (2) Status post colostomy takedown Current Visit: Yes Status: Acute Code(s): Z98.890 - OTHER SPECIFIED POSTPROCEDURAL STATES SNOMED Code(s): 27225460523774845 Plan: 1. Will advance diet. 2. Continue with hospitalization through the weekend. 3. Wound VAC function intact. Wound VAC instructions also reviewed.
--- NOTE | 2018-04-22 14:31 | P.PN ---
Subjective Progress Note Date: 04/22/18 This is a 67-year-old female with a known past medical history of perforated diverticulitis with abscess and had undergone Rivka procedure back in January. Also treated with antibiotics at that time. She has been doing well and she has been brought back into the hospital to have reversal of her colostomy. She has tolerated this procedure well. Patient also has a history of hyperlipidemia , breast cancer and hypertension. Postoperatively patient has been hypertensive. Blood pressure of 179/76. Her metoprolol and Imdur will be restarted. And IV fluids were decreased to 100 mL an hour. Patient also is complaining of some dizziness even though she had elevated blood pressure. Patient denies any fever or chills or sweats. Denies any vomiting but has had some nausea. Pain reports pain as tolerable. Denies any chest pain or shortness of breath. Has not had a bowel movement or passed gas yet. She has a wound VAC in place. 04/21/2018 patient complaining of numbness in her bilateral feet. She reports that she has this neuropathy due to previously being on Flagyl. She is used Neurontin in the past with no improvement. She is agreeable to try Lyrica. Patient had reported that her fevers and was not able to work with physical therapy. Surgery has advanced her diet to a liquid diet. Still has not passed gas or had bowel movement yet. Still complaining of some nausea and dizziness. 04/22/2018 patient is alert and oriented 3 she is feeling a bit stronger today there is no nausea or vomiting no abdominal pain no fever or chills no chest pain no shortness of breath and no urinary symptoms Objective - Vital Signs Vital signs: Vital Signs Temp 97.7 F 04/22/18 07:00 Pulse 50 L 04/22/18 07:00 Resp 18 04/22/18 07:00 BP 123/65 04/22/18 07:00 Pulse Ox 97 04/22/18 02:47 Intake & Output 04/21/18 04/22/18 04/22/18 18:59 06:59 18:59 Intake Total 960 1600 Output Total 1000 Balance -40 1600 Intake: Intake, IV Titration 800 1600 Amount D5-0.45% NaCl with KCl 700 1600 20Meq/l 1,000 ml @ 100 mls/hr IV .Q10H [facility] Rx#: [id number] Levofloxacin 500Mg-D5w 100 Pmx 500 mg In Dextrose/ Water 1 100ml.bag @ 100 mls/hr IVPB Q24HR [facility] Rx# :[id number] Oral 160 Output: Urine 1000 Uretheral (Sahu) 1000 Other: Voiding Method Toilet Toilet # Voids 2 3 - Exam Head normocephalic and atraumatic Neck supple, no JVD no goiter Lungs clear to auscultation bilaterally no wheezing or crackles Heart regular rate and rhythm S1-S2, no rub or gallop Abdomen is soft nontender nondistended positive bowel sounds no hepatosplenomegaly. Wound VAC in place Extremities no edema. No discoloration to the feet. Warm to touch. Tenderness with palpation of the toes. Neuro alert and orientated to 3 - Labs CBC & Chem 7: 04/22/18 07:03 04/22/18 07:03 Labs: Abnormal Lab Results - Last 24 Hours (Table) 04/22/18 04/22/18 Range/Units 07:03 07:03 WBC 14.0 H (3.8-10.6) k/uL Neutrophils # 11.3 H (1.3-7.7) k/uL BUN 6 L (7-17) mg/dL Creatinine 0.51 L (0.52-1.04) mg/dL Glucose 103 H (74-99) mg/dL Total Protein 5.5 L (6.3-8.2) g/dL Albumin 3.1 L (3.5-5.0) g/dL Assessment and Plan Plan: 1. Perforated diverticulitis with abscess and previous Rivka procedure in January. Patient is now status post colostomy reversal. Continue postop orders per surgical service. Surgery has advanced diet to liquid diet 2. Essential hypertension with elevated blood pressures. Blood pressures have shown improvement. Continue with the metoprolol and Imdur 3. History of breast cancer in 2017 status post mastectomy continue the Femara 4. Hyperlipidemia: Zocor on hold due to patient being nothing by mouth 5. Peripheral neuropathy: We'll try Lyrica 25 mg twice a day. Agree with neurology consult DVT prophylaxis subcu heparin GI prophylaxis Protonix Patient is stable diet is being advanced gradually Continue with current management
[2018-04-22 16:02] VITALS: RESP 16
--- NOTE | 2018-04-22 18:10 | P.PN ---
Subjective Progress Note Date: 04/22/18 Physilcal Examination: This patient is a 67-year-old female who is being evaluated for neuropathy. Neurology was consulted yesterday for further evaluation of history of peripheral neuropathy. Symptoms began in November and seemed to worsen after January. She attributes some of the symptoms to use of Flagyl for treatment of her recent abdominal abscess. Patient underwent colostomy procedure earlier in the year and had to come in to the hospital this admission for colostomy reversal. She is doing better today and feels stronger. She had been treated for her neuropathy with Neurontin but discontinued use of this medication as it was not helping. She was just started on Lyrica yesterday 25 mg by mouth twice a day which has been of some help. Patient did have some nausea symptoms earlier. She seems to be doing better in terms of pain management today as compared to yesterday. She does have a wound VAC dressing which is clean and dry and intact. Surgery is following her closely. We have once again suggested if possible for the patient to increase her dose of Lyrica to 50 mg twice a day in the next few days depending on her response. The patient otherwise seems to be making slow progress. She is yet to have a bowel movement. She is on laxatives. We will continue to follow her for the neuropathy closely and give further recommendations as needed. Her overall prognosis at this time remains guarded. Objective - Vital Signs Vital signs: Vital Signs Temp 97.7 F 04/22/18 07:00 Pulse 50 L 04/22/18 07:00 Resp 18 04/22/18 07:00 BP 123/65 04/22/18 07:00 Pulse Ox 97 04/22/18 02:47 Intake & Output 04/21/18 04/22/18 04/22/18 18:59 06:59 18:59 Intake Total 960 1600 Output Total 1000 Balance -40 1600 Intake: Intake, IV Titration 800 1600 Amount D5-0.45% NaCl with KCl 700 1600 20Meq/l 1,000 ml @ 100 mls/hr IV .Q10H [facility] Rx#: [id number] Levofloxacin 500Mg-D5w 100 Pmx 500 mg In Dextrose/ Water 1 100ml.bag @ 100 mls/hr IVPB Q24HR [facility] Rx# :[id number] Oral 160 Output: Urine 1000 Uretheral (Sahu) 1000 Other: Voiding Method Toilet Toilet # Voids 2 3 - Exam Physical examination: PHYSICAL EXAMINATION: Patient is resting comfortably in bed. VITAL SIGNS: Blood pressure is [123/65]. Heart rate is [50]. Respiration is [18] . Temperature is [97.7]. HEENT: Head is atraumatic, neck is supple, there were no carotid bruits. CHEST: Lungs are clear to auscultation and percussion. CARDIAC: S1, S2 normal rate and rhythm. There is no murmur. ABDOMEN: Soft and nontender. Bowel sounds are present. EXTREMITIES: There is no pedal edema. Peripheral pulses are present. Neurological examination: Patient neurological examinations unchanged from yesterday. - Labs CBC & Chem 7: 04/22/18 07:03 04/22/18 07:03 Labs: Abnormal Lab Results - Last 24 Hours (Table) 04/22/18 04/22/18 Range/Units 07:03 07:03 WBC 14.0 H (3.8-10.6) k/uL Neutrophils # 11.3 H (1.3-7.7) k/uL BUN 6 L (7-17) mg/dL Creatinine 0.51 L (0.52-1.04) mg/dL Glucose 103 H (74-99) mg/dL Total Protein 5.5 L (6.3-8.2) g/dL Albumin 3.1 L (3.5-5.0) g/dL Assessment and Plan (1) Acute sensory neuropathy Current Visit: Yes Status: Acute Code(s): G61.0 - GUILLAIN-BARRE SYNDROME SNOMED Code(s): 91921430 (2) Status post colostomy takedown Current Visit: Yes Status: Acute Code(s): Z98.890 - OTHER SPECIFIED POSTPROCEDURAL STATES SNOMED Code(s): 24360821240906024 (3) History of breast cancer Current Visit: Yes Status: Acute Code(s): Z85.3 - PERSONAL HISTORY OF MALIGNANT NEOPLASM OF BREAST SNOMED Code(s): 480175807 (4) Diverticulitis Current Visit: Yes Status: Acute Code(s): K57.92 - DVTRCLI OF INTEST, PART UNSP, W/O PERF OR ABSCESS W/O BLEED SNOMED Code(s): 005645750 Plan: This patient is a 67-year-old female being followed for history of peripheral neuropathy. Patient has a long-standing history of peripheral neuropathy etiology undetermined. Patient feels her neuropathy worsened after taking a long course of treatment with Flagyl. She will require further evaluation with outpatient EMG study. Currently she is on Lyrica 25 mg by mouth twice a day and should continue with this dosage with slow titration over the next 3 days. She has been able to ambulate today in her room and feels some improvement overall with her condition of peripheral neuropathy. She is making good progress in terms of her colostomy reversal as well. We will continue to follow her closely for any other changes in her neurological status. Her overall prognosis at this time remains guarded.
[2018-04-22] MEDS: METOPROLOL SUCCINATE (ER) 50 MG TAB.ER.24H PO SCH (21:12)
[2018-04-22] MEDS: LETROZOLE 2.5 MG TAB PO SCH (21:12)
[2018-04-22] MEDS: ISOSORBIDE MONONITRATE ER 30 MG TAB.ER.24H PO SCH (21:12)
[2018-04-23] MEDS: HEPARIN SODIUM,PORCINE 5,000 UNIT/ML 1 ML VIAL SQ SCH ×4 (01:16→23:54)
[2018-04-23] MEDS: HYDROcodone/APAP 7.5-325MG 1 EACH TAB PO PRN ×2 (04:41→15:21)
[2018-04-23 06:59] LABS: Basophils % (A) 0 %; Eosinophils # (A) 0.4 k/uL (0-0.7); Eosinophils % (A) 3 %; HCT 41.8 % (34.0-46.0); HGB 13.3 gm/dL (11.4-16.0); Lymphocytes # (A) 1.3 k/uL (1.0-4.8); Lymphocytes % (A) 11 %; MCH 28.7 pg (25.0-35.0); MCHC 31.9 g/dL (31.0-37.0); Monocytes # (A) 0.6 k/uL (0-1.0); Monocytes % (A) 5 %; Neutrophils # (A) 9.7 k/uL (1.3-7.7); Neutrophils % (A) 80 %; Platelet Count 299 k/uL (150-450); RBC 4.64 m/uL (3.80-5.40); RDW 13.3 % (11.5-15.5); WBC 12.2 k/uL (3.8-10.6)
[2018-04-23 07:11] LABS: ALT 25 U/L (9-52); AST 13 U/L (14-36); Albumin 3.3 g/dL (3.5-5.0); Alkaline Phosphatase 85 U/L (38-126); Anion Gap 8 mmol/L; Blood Urea Nitrogen 9 mg/dL (7-17); Calcium 9.4 mg/dL (8.4-10.2); Carbon Dioxide 32 mmol/L (22-30); Chloride 100 mmol/L (98-107); Glucose 105 mg/dL (74-99); Potassium 4.3 mmol/L (3.5-5.1); Sodium 140 mmol/L (137-145); Total Bilirubin 0.3 mg/dL (0.2-1.3); Total Protein 5.7 g/dL (6.3-8.2)
[2018-04-23] MEDS: ALVIMOPAN 12 MG CAPSULE PO SCH ×2 (09:29→21:53)
[2018-04-23] MEDS: PREGABALIN 25 MG CAP PO SCH (09:30)
[2018-04-23] MEDS: LEVOFLOXACIN 500 MG TAB PO SCH (09:30)
[2018-04-23] MEDS: PANTOPRAZOLE 40 MG TABLET PO SCH (09:30)
--- NOTE | 2018-04-23 12:26 | P.PN ---
Subjective Progress Note Date: 04/23/18 The patient is status post colostomy reversal. She reports increased abdominal gas. No past of flatus or bowel movement. No fevers or chills. She reports some nausea however this is improving. Objective - Vital Signs Vital signs: Vital Signs Temp 97.9 F 04/23/18 07:00 Pulse 56 L 04/23/18 09:41 Resp 16 04/23/18 07:00 BP 119/71 04/23/18 07:00 Pulse Ox 95 04/23/18 07:00 Intake & Output 04/22/18 04/23/18 04/23/18 18:59 06:59 18:59 Intake Total 1370 1430 Balance 1370 1430 Intake: Intake, IV Titration 800 500 Amount D5-0.45% NaCl with KCl 800 500 20Meq/l 1,000 ml @ 100 mls/hr IV .Q10H [facility] Rx#: [id number] Oral 570 930 Other: Voiding Method Toilet Toilet Toilet # Voids 1 3 - Exam GENERAL: Well developed and in no acute distress. Pleasant. HEENT: No sclera icterus. Extraocular movements grossly intact. Moist buccal mucosa. Head is atraumatic, normocephalic. Hears conversational speech. No nasal drainage. NECK: Supple without lymphadenopathy. CHEST: Non-labored respirations and equal bilateral excursions. CARDIOVASCULAR: Regular rate and rhythm. Palpable 2+ radial pulses. ABDOMEN: Soft, nontender. Mild distention. Wound VAC dressing clean dry and intact with appropriate suction. MUSCULOSKELETAL: No clubbing, cyanosis or edema. NEUROLOGIC: No focal or lateralizing signs. PSYCH: Appropriate affect. Alert and oriented to person, place and time. SKIN: Good skin turgor. Well perfused. - Labs CBC & Chem 7: 04/23/18 06:40 04/23/18 06:40 Labs: Abnormal Lab Results - Last 24 Hours (Table) 04/23/18 04/23/18 Range/Units 06:40 06:40 WBC 12.2 H (3.8-10.6) k/uL Neutrophils # 9.7 H (1.3-7.7) k/uL Carbon Dioxide 32 H (22-30) mmol/L Glucose 105 H (74-99) mg/dL AST 13 L (14-36) U/L Total Protein 5.7 L (6.3-8.2) g/dL Albumin 3.3 L (3.5-5.0) g/dL Assessment and Plan (1) Diverticulitis Current Visit: Yes Status: Acute Code(s): K57.92 - DVTRCLI OF INTEST, PART UNSP, W/O PERF OR ABSCESS W/O BLEED SNOMED Code(s): 830239211 (2) Status post colostomy takedown Current Visit: Yes Status: Acute Code(s): Z98.890 - OTHER SPECIFIED POSTPROCEDURAL STATES SNOMED Code(s): 81777316081899589 Plan: 1. She has nausea. Trial of Reglan. 2. Leukocytosis still present. Continue hospitalization. 3. Recommend ambulation 4 times daily.
[2018-04-23] MEDS: METOCLOPRAMIDE 5 MG/ML 2 ML VIAL IVP SCH ×3 (12:46→23:55)
--- NOTE | 2018-04-23 13:31 | P.PN ---
Subjective Progress Note Date: 04/23/18 This is a 67-year-old female with a known past medical history of perforated diverticulitis with abscess and had undergone Rivka procedure back in January. Also treated with antibiotics at that time. She has been doing well and she has been brought back into the hospital to have reversal of her colostomy. She has tolerated this procedure well. Patient also has a history of hyperlipidemia , breast cancer and hypertension. Postoperatively patient has been hypertensive. Blood pressure of 179/76. Her metoprolol and Imdur will be restarted. And IV fluids were decreased to 100 mL an hour. Patient also is complaining of some dizziness even though she had elevated blood pressure. Patient denies any fever or chills or sweats. Denies any vomiting but has had some nausea. Pain reports pain as tolerable. Denies any chest pain or shortness of breath. Has not had a bowel movement or passed gas yet. She has a wound VAC in place. 04/21/2018 patient complaining of numbness in her bilateral feet. She reports that she has this neuropathy due to previously being on Flagyl. She is used Neurontin in the past with no improvement. She is agreeable to try Lyrica. Patient had reported that her fevers and was not able to work with physical therapy. Surgery has advanced her diet to a liquid diet. Still has not passed gas or had bowel movement yet. Still complaining of some nausea and dizziness. 04/22/2018 patient is alert and oriented 3 she is feeling a bit stronger today there is no nausea or vomiting no abdominal pain no fever or chills no chest pain no shortness of breath and no urinary symptoms On 04/23/2018 patient is alert and oriented 3 in no apparent distress is no fever or chills no headache or dizziness no chest pain no shortness of breath no cough no nausea or vomiting no abdominal pain no diarrhea or constipation and no urinary symptoms. Patient has not passed any gas or had any bowel movement since surgery Objective - Vital Signs Vital signs: Vital Signs Temp 97.9 F 04/23/18 07:00 Pulse 56 L 04/23/18 09:41 Resp 16 04/23/18 07:00 BP 119/71 04/23/18 07:00 Pulse Ox 95 04/23/18 07:00 Intake & Output 06/02/18 06/03/18 06/03/18 18:59 06:59 18:59 Intake Total 1370 1430 0 Balance 1370 1430 0 Intake: Intake, IV Titration 800 500 Amount D5-0.45% NaCl with KCl 800 500 20Meq/l 1,000 ml @ 100 mls/hr IV .Q10H [facility] Rx#: [id number] Oral 570 930 0 Other: Voiding Method Toilet Toilet Toilet # Voids 1 3 - Exam Head normocephalic and atraumatic Neck supple, no JVD no goiter Lungs clear to auscultation bilaterally no wheezing or crackles Heart regular rate and rhythm S1-S2, no rub or gallop Abdomen is soft nontender nondistended positive bowel sounds no hepatosplenomegaly. Wound VAC in place Extremities no edema. No discoloration to the feet. Warm to touch. Tenderness with palpation of the toes. Neuro alert and orientated to 3 - Labs CBC & Chem 7: 04/23/18 06:40 04/23/18 06:40 Labs: Abnormal Lab Results - Last 24 Hours (Table) 04/23/18 04/23/18 Range/Units 06:40 06:40 WBC 12.2 H (3.8-10.6) k/uL Neutrophils # 9.7 H (1.3-7.7) k/uL Carbon Dioxide 32 H (22-30) mmol/L Glucose 105 H (74-99) mg/dL AST 13 L (14-36) U/L Total Protein 5.7 L (6.3-8.2) g/dL Albumin 3.3 L (3.5-5.0) g/dL Assessment and Plan Plan: 1. Perforated diverticulitis with abscess and previous Rivka procedure in January. Patient is now status post colostomy reversal. Continue postop orders per surgical service. Surgery has advanced diet to liquid diet 2. Essential hypertension with elevated blood pressures. Blood pressures have shown improvement. Continue with the metoprolol and Imdur 3. History of breast cancer in 2017 status post mastectomy continue the Femara 4. Hyperlipidemia: Zocor on hold due to patient being nothing by mouth 5. Peripheral neuropathy: We'll try Lyrica 25 mg twice a day. Agree with neurology consult DVT prophylaxis subcu heparin GI prophylaxis Protonix Patient is stable diet is being advanced gradually Continue with current management
--- NOTE | 2018-04-23 18:33 | P.PN ---
Subjective Progress Note Date: 04/23/18 Physilcal Examination: This patient is a 67-year-old female who is being evaluated for neuropathy. Neurology was consulted yesterday for further evaluation of history of peripheral neuropathy. Symptoms began in November and seemed to worsen after January. She attributes some of the symptoms to use of Flagyl for treatment of her recent abdominal abscess. Patient underwent colostomy procedure earlier in the year and had to come in to the hospital this admission for colostomy reversal. She is doing better today and feels stronger. She had been treated for her neuropathy with Neurontin but discontinued use of this medication as it was not helping. She was just started on Lyrica yesterday 25 mg by mouth twice a day which has been of some help. Patient did have some nausea symptoms earlier. She seems to be doing better in terms of pain management today as compared to yesterday. She does have a wound VAC dressing which is clean and dry and intact. Surgery is following her closely. We have once again suggested if possible for the patient to increase her dose of Lyrica to 50 mg twice a day in the next few days depending on her response. The patient otherwise seems to be making slow progress. She is yet to have a bowel movement. She is on laxatives. Reglan was added today by her surgeon as well. We will continue to follow her for the neuropathy closely and give further recommendations as needed. We have suggested the patient to consider increasing her Lyrica to 25 mg in the morning and 50 mg in the evening dose. This can be started tomorrow for her. She would like to try to titrate the dosage of the Lyrica slightly upwards to see how she does tomorrow. She is encouraged to continue to get up and ambulate at least 4 times a day. She was able to work with some therapy earlier today. We will monitor her over the next few days at the higher dose of Lyrica to see if we can continue to titrate the dose higher for her. Her overall prognosis at this time remains guarded. Objective - Vital Signs Vital signs: Vital Signs Temp 97.6 F 04/23/18 14:40 Pulse 60 04/23/18 14:40 Resp 16 04/23/18 14:40 BP 138/63 04/23/18 14:40 Pulse Ox 95 04/23/18 14:40 Intake & Output 04/22/18 04/23/1818 18:59 06:59 18:59 Intake Total 1370 1430 0 Balance 1370 1430 0 Intake: Intake, IV Titration 800 500 Amount D5-0.45% NaCl with KCl 800 500 20Meq/l 1,000 ml @ 100 mls/hr IV .Q10H [facility] Rx#: [id number] Oral 570 930 0 Other: Voiding Method Toilet Toilet Toilet # Voids 1 3 4 - Exam Physical examination: PHYSICAL EXAMINATION: Patient is resting comfortably in bed. VITAL SIGNS: Blood pressure is [138/63]. Heart rate is [60]. Respiration is [16] . Temperature is [97.7]. HEENT: Head is atraumatic, neck is supple, there were no carotid bruits. CHEST: Lungs are clear to auscultation and percussion. CARDIAC: S1, S2 normal rate and rhythm. There is no murmur. ABDOMEN: Soft and nontender. Bowel sounds are present. EXTREMITIES: There is no pedal edema. Peripheral pulses are present. Neurological examination: Patient neurological examinations unchanged from yesterday. Patient has difficulty with ambulation and does get up with some assistance. She becomes unsteady with tandem walk. Deep tendon reflexes are hypoactive. Plantar responses flexor bilaterally. - Labs CBC & Chem 7: 04/23/18 06:40 04/23/18 06:40 Labs: Abnormal Lab Results - Last 24 Hours (Table) 04/23/18 04/23/18 Range/Units 06:40 06:40 WBC 12.2 H (3.8-10.6) k/uL Neutrophils # 9.7 H (1.3-7.7) k/uL Carbon Dioxide 32 H (22-30) mmol/L Glucose 105 H (74-99) mg/dL AST 13 L (14-36) U/L Total Protein 5.7 L (6.3-8.2) g/dL Albumin 3.3 L (3.5-5.0) g/dL Assessment and Plan (1) Acute sensory neuropathy Current Visit: Yes Status: Acute Code(s): G61.0 - GUILLAIN-BARRE SYNDROME SNOMED Code(s): 29588117 (2) Status post colostomy takedown Current Visit: Yes Status: Acute Code(s): Z98.890 - OTHER SPECIFIED POSTPROCEDURAL STATES SNOMED Code(s): 81201207412537453 (3) History of breast cancer Current Visit: Yes Status: Acute Code(s): Z85.3 - PERSONAL HISTORY OF MALIGNANT NEOPLASM OF BREAST SNOMED Code(s): 299742892 (4) Diverticulitis Current Visit: Yes Status: Acute Code(s): K57.92 - DVTRCLI OF INTEST, PART UNSP, W/O PERF OR ABSCESS W/O BLEED SNOMED Code(s): 023960161 Plan: This patient has history of peripheral neuropathy and is been started recently on Lyrica 25 mg by mouth twice a day. She has made some progress with this new medication for treatment of her peripheral neuropathy. She had tried Neurontin previously with not much improvement with her symptoms of neuropathic pain. She has been up and ambulating somewhat with the help of physical therapy. She underwent recent surgery for perforated diverticulitis abscess. She is admitted this admission for reversal of her colostomy. We have recommended that she may try to increase her dose of Lyrica tomorrow to 25 mg in the morning and 50 mg in the evening with slow titration to see if this may help with some of the neuropathic pain symptoms. Patient is encouraged to get up and ambulate 3 or 4 times a day. We will continue to follow her progress closely during this admission. Her overall prognosis at this time remains guarded.
[2018-04-23] MEDS ORDERED: PREGABALIN 25 MG CAP PO ONE (21:00)
[2018-04-23] MEDS ORDERED: PREGABALIN 50 MG CAP PO SCH (21:00)
[2018-04-23] MEDS: LETROZOLE 2.5 MG TAB PO SCH (21:53)
[2018-04-23] MEDS: METOPROLOL SUCCINATE (ER) 50 MG TAB.ER.24H PO SCH (21:53)
[2018-04-23] MEDS: ISOSORBIDE MONONITRATE ER 30 MG TAB.ER.24H PO SCH (21:53)
[2018-04-24] MEDS: METOCLOPRAMIDE 5 MG/ML 2 ML VIAL IVP SCH ×2 (05:32→12:04)
[2018-04-24 07:00] LABS: Basophils % (A) 0 %; Eosinophils # (A) 0.3 k/uL (0-0.7); Eosinophils % (A) 2 %; HCT 42.9 % (34.0-46.0); HGB 14.6 gm/dL (11.4-16.0); Lymphocytes # (A) 1.3 k/uL (1.0-4.8); Lymphocytes % (A) 10 %; MCH 30.9 pg (25.0-35.0); MCHC 34.1 g/dL (31.0-37.0); MCV 90.8 fL (80.0-100.0); Mean Platelet Volume 6.5; Monocytes # (A) 0.7 k/uL (0-1.0); Monocytes % (A) 6 %; Neutrophils # (A) 10.7 k/uL (1.3-7.7); Neutrophils % (A) 81 %; Platelet Count 312 k/uL (150-450); RBC 4.73 m/uL (3.80-5.40); RDW 13.4 % (11.5-15.5); WBC 13.2 k/uL (3.8-10.6)
[2018-04-24 07:16] LABS: ALT 28 U/L (9-52); AST 21 U/L (14-36); Albumin 3.7 g/dL (3.5-5.0); Alkaline Phosphatase 104 U/L (38-126); Anion Gap 11 mmol/L; Blood Urea Nitrogen 14 mg/dL (7-17); Calcium 9.4 mg/dL (8.4-10.2); Carbon Dioxide 30 mmol/L (22-30); Chloride 98 mmol/L (98-107); Glucose 113 mg/dL (74-99); Potassium 4.1 mmol/L (3.5-5.1); Sodium 139 mmol/L (137-145); Total Bilirubin 0.5 mg/dL (0.2-1.3); Total Protein 6.3 g/dL (6.3-8.2)
[2018-04-24] MEDS: ALVIMOPAN 12 MG CAPSULE PO SCH (08:08)
[2018-04-24] MEDS: HEPARIN SODIUM,PORCINE 5,000 UNIT/ML 1 ML VIAL SQ SCH (08:08)
[2018-04-24] MEDS: LEVOFLOXACIN 500 MG TAB PO SCH (08:08)
[2018-04-24] MEDS: PANTOPRAZOLE 40 MG TABLET PO SCH (08:08)
[2018-04-24] MEDS: HYDROcodone/APAP 7.5-325MG 1 EACH TAB PO PRN (08:16)
[2018-04-24] MEDS ORDERED: PREGABALIN 25 MG CAP PO SCH (09:00)
--- NOTE | 2018-04-24 09:53 | P.PN ---
Subjective Progress Note Date: 04/24/18 67-year-old female ambulating with physical therapy in the [place] this morning. Patient states is passing gas rectally. Tolerating a diet. No stool. Abdomen not distended. Patient states since starting Lyrica has been experiencing less numbness in the bilateral lower extremities and feels like she is able to ambulate with less difficulty with the use of a walker abdomen soft not distended bowel tones present with a prevera system in place 04/19/2018 reversal of colostomy, lysis of adhesion, partial colectomy, for perforated diverticulitis Objective - Vital Signs Vital signs: Vital Signs Temp 98.0 F 04/23/18 20:30 Pulse 67 04/23/18 20:30 Resp 16 04/23/18 20:30 BP 136/65 04/23/18 20:30 Pulse Ox 96 04/23/18 20:30 Intake & Output 04/23/18 04/24/18 04/24/18 18:59 06:59 18:59 Intake Total 237 1080 Balance 237 1080 Intake: Oral 237 1080 Other: Voiding Method Toilet Toilet # Voids 4 1 - Exam Physical exam Pleasant 67-year-old female up ambulating with the use of a walker with physical therapy appears in no acute distress Lungs adequate air movement bilaterally on room air Heart S1-S2 audible regular Abdomen soft bowel tones present not distended surgical tenderness appropriate prevera wound system in place states passing gas no stool no nausea no vomiting tolerating diet Extremities no edema noted - Labs CBC & Chem 7: 04/24/18 06:33 04/24/18 06:33 Labs: Abnormal Lab Results - Last 24 Hours (Table) 04/24/18 04/24/18 Range/Units 06:33 06:33 WBC 13.2 H (3.8-10.6) k/uL Neutrophils # 10.7 H (1.3-7.7) k/uL Glucose 113 H (74-99) mg/dL Assessment and Plan Assessment: Impression History of breast cancer right breast status post mastectomy 2017 Essential hypertension Perforated diverticulitis with abscess with the prior Rivka's procedure in January 2018 Status post 19 of April reversal of colostomy placement of adhesions partial colectomy done for perforated diverticulitis with abscess Leukocytosis suspect reactive Peripheral neuropathy suspect Acute sensory neuropathy Plan PT OT eval Dietitian nutritional supplements Will advance diet to soft Continue postop surgical care Increase activity DVT and GI prophylaxis Levaquin as ordered Pain control Prepped for probable discharge today Continue recommendations by neurology Outpatient physical therapy with home care The above impression and plan of care have been discussed and directed by signing physician. Argelia Martinez nurse practitioner acting as scribe for signing physician.
[2018-04-24 10:05] VITALS: BP 163/75; PULSE 85; TEMP 97
--- NOTE | 2018-04-24 11:30 | P.PN ---
Subjective Progress Note Date: 04/24/18 This is a 67-year-old female with a known past medical history of perforated diverticulitis with abscess and had undergone Rivka procedure back in January. Also treated with antibiotics at that time. She has been doing well and she has been brought back into the hospital to have reversal of her colostomy. She has tolerated this procedure well. Patient also has a history of hyperlipidemia , breast cancer and hypertension. Postoperatively patient has been hypertensive. Blood pressure of 179/76. Her metoprolol and Imdur will be restarted. And IV fluids were decreased to 100 mL an hour. Patient also is complaining of some dizziness even though she had elevated blood pressure. Patient denies any fever or chills or sweats. Denies any vomiting but has had some nausea. Pain reports pain as tolerable. Denies any chest pain or shortness of breath. Has not had a bowel movement or passed gas yet. She has a wound VAC in place. 04/21/2018 patient complaining of numbness in her bilateral feet. She reports that she has this neuropathy due to previously being on Flagyl. She is used Neurontin in the past with no improvement. She is agreeable to try Lyrica. Patient had reported that her fevers and was not able to work with physical therapy. Surgery has advanced her diet to a liquid diet. Still has not passed gas or had bowel movement yet. Still complaining of some nausea and dizziness. 04/24/2018 patient is feeling better. Denies any abdominal pain. Denies any nausea or vomiting. Reports having stools and passing gas. She has been up and ambulating and tolerating a regular diet. She is scheduled for discharge today. White count is 13.2 Objective - Vital Signs Vital signs: Vital Signs Temp 97.0 F L 04/24/18 08:04 Pulse 85 04/24/18 08:04 Resp 16 04/24/18 08:04 BP 163/75 04/24/18 08:04 Pulse Ox 97 04/24/18 08:04 Intake & Output 04/23/18 04/24/18 04/24/18 18:59 06:59 18:59 Intake Total 237 1080 Balance 237 1080 Weight 45.813 kg Intake: Oral 237 1080 Other: Voiding Method Toilet Toilet # Voids 4 1 - Exam Head normocephalic Neck supple Lungs clear to auscultation bilaterally no wheezing or crackles Heart regular rate and rhythm S1-S2, no rub or gallop Abdomen is soft nontender nondistended positive bowel sounds no hepatosplenomegaly. Wound VAC in place Extremities no edema. No discoloration to the feet. Warm to touch. Tenderness with palpation of the toes. Neuro alert and orientated to 3 - Labs CBC & Chem 7: 18 06:33 18 06:33 Labs: Abnormal Lab Results - Last 24 Hours (Table) 04/24/18 04/24/18 Range/Units 06:33 06:33 WBC 13.2 H (3.8-10.6) k/uL Neutrophils # 10.7 H (1.3-7.7) k/uL Glucose 113 H (74-99) mg/dL Assessment and Plan Assessment: 1. Perforated diverticulitis with abscess and previous Rivka procedure in January. Patient is now status post colostomy reversal. Continue postop orders per surgical service. Tolerating regular diet 2. Essential hypertension with elevated blood pressures. Blood pressures have shown improvement. Continue with the metoprolol and Imdur 3. History of breast cancer in 2017 status post mastectomy continue the Femara 4. Hyperlipidemia: Resume Zocor at discharge 5. 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 They have increased the Lyrica to 25 mg in the morning and 50 mg at bedtime. Patient will follow-up with neurology outpatient 6. Leukocytosis likely reactive from surgery. No antibiotics needed at discharge. Recommend checking CBC in 1 week with her PCP DVT prophylaxis subcu heparin GI prophylaxis Protonix Patient is medically stable for discharge. I performed an examination of the patient and discussed their management with the physician House Manager. I have reviewed the Physician House Manager's notes and agree with the documented findings and plan of care
--- NOTE | 2018-04-24 12:05 | P.DS ---
Providers Date of admission: 04/19/18 11:12 Expected date of discharge: 04/24/18 Attending physician: Juliano Guido Consults: 04/19/18 14:47 Consult Physician Routine Consulting Provider: Sterling Dove Consult Reason/Comments: Medical management Do you want consulting provider notified?: Yes 04/21/18 11:56 Consult Physician Urgent Consulting Provider: Alesia Tineo Consult Reason/Comments: Inability to ambulate tingling feet Do you want consulting provider notified?: Yes Primary care physician: Stated None Hospital Course: 67 year old female presented on the day of admission to undergo an elective ostomy reversal. Patient had undergone a Rivka procedure for diverticulitis done in January 2018. did develop in January 2018 numbness and tingling to her feet decrease sensation which the patient stated had gotten progressively worse. Patient's symptoms were suggestive of peripheral neuropathy. Patient stated that she was started on Neurontin in the outpatient setting and it did not seem to help. Patient associated the symptoms with being on Flagyl in the outpatient setting. A neurology consultation was requested was seen this admission by Dr. Tineo. Neurontin was stopped and Lyrica was initiated there was a noted improvement in patient's numbness and tingling to the lower extremities. On the day of discharge patient was passing gas and had a bowel movement patient was able to ambulate with the use of a walker and patient reported having less surgical discomfort and tolerating a diet was felt to be appropriate to be discharged home home care with follow patient patient physical therapy Patient underwent the procedure with a prevera wound system placed done on April 19 Impression discharge diagnosis History of breast cancer right breast status post mastectomy 2017 Essential hypertension Perforated diverticulitis with abscess with the prior Rivka's procedure in January 2018 Status post 19 of April reversal of colostomy lysis of adhesions partial colectomy done for history of perforated diverticulitis with abscess Leukocytosis suspect reactive Peripheral neuropathy suspect Acute sensory neuropathy The above impression and plan of care have been discussed and directed by signing physician. Argelia Martinez nurse practitioner acting as scribe for signing physician. Plan - Discharge Summary Discharge Rx Participant: Yes New Discharge Prescriptions: New Pregabalin [Lyrica] 25 mg PO DIRECTED #90 cap HYDROcodone/APAP 7.5-325MG [Chili 7.5-325] 1 each PO Q4H PRN #12 tab PRN Reason: Pain Continue Simvastatin [Zocor] 40 mg PO HS Metoprolol Succinate (ER) [Toprol XL] 50 mg PO HS Isosorbide Mononitrate ER [Imdur] 30 mg PO HS Aspirin 81 mg PO HS Letrozole [Femara] 2.5 mg PO HS Suvorexant [Belsomra] 5 mg PO HS PRN PRN Reason: sleeping Discharge Medication List Aspirin 81 mg PO HS 12/26/17 [History] Isosorbide Mononitrate ER [Imdur] 30 mg PO HS 12/26/17 [History] Metoprolol Succinate (ER) [Toprol XL] 50 mg PO HS 12/26/17 [History] Simvastatin [Zocor] 40 mg PO HS 12/26/17 [History] Letrozole [Femara] 2.5 mg PO HS 01/26/18 [History] Suvorexant [Belsomra] 5 mg PO HS PRN 04/14/18 [History] HYDROcodone/APAP 7.5-325MG [Chili 7.5-325] 1 each PO Q4H PRN #12 tab 04/24/18 [ Rx] Pregabalin [Lyrica] 25 mg PO DIRECTED #90 cap 04/24/18 [Rx] Follow up Appointment(s)/Referral(s): Shabana Tineo MD [STAFF PHYSICIAN] - 05/19/18 9:30 am [facility], [NON-STAFF] - Juliano Guido MD [STAFF PHYSICIAN] - 05/02/18 3:40 pm Activity/Diet/Wound Care/Special Instructions: No tub bath for six weeks. Shower daily. No lifting over 10 pounds for the next 6 weeks. Continue prevera wound system do not remove will be removed in an office visit with Dr gómez. May use ice packs to surgical site. No driving while taking narcotic for pain. May use [id number] stool softeners avoid constipation Physical therapy outpatient setting Follow up with PCP in 1 week Discharge Disposition: HOME WITH HOME HEALTH SERVICES
[2018-04-24 12:25] LABS: Hemoglobin A1C 6.3 % (4.0-6.0)
[2018-04-24 12:59] LABS: Vitamin D 25 Hydroxy 29.2 ng/mL (30.0-100.0)
[2018-04-24] MEDS ORDERED: PREGABALIN 50 MG CAP PO SCH (21:00)
== END 2018-04-24 12:25 | disposition home health service (06) | DRG 331 ==
LOC: 2ORMAIN 11:12 → 3SUR 15:44
PROVIDERS: ADMIT Surgery; ATTEND Surgery
PROC: 0DBN0ZZ Excision of Sigmoid Colon, Open Approach (ICD-10-PCS; principal; 2018-04-19 13:05)
DX: Z43.3 Encounter for attention to colostomy (principal); D72.829 Elevated white blood cell count, unspecified; E78.5 Hyperlipidemia, unspecified; G60.8 Other hereditary and idiopathic neuropathies; I10 Essential (primary) hypertension; M85.80 Other specified disorders of bone density and structure, unspecified site; R11.2 Nausea with vomiting, unspecified; R42 Dizziness and giddiness; K57.90 Diverticulosis of intestine, part unspecified, without perforation or abscess without bleeding; Z79.82 Long term (current) use of aspirin; Z79.899 Other long term (current) drug therapy; Z85.3 Personal history of malignant neoplasm of breast; Z85.828 Personal history of other malignant neoplasm of skin; Z90.11 Acquired absence of right breast and nipple; Z87.891 Personal history of nicotine dependence; Z90.49 Acquired absence of other specified parts of digestive tract; Z88.1 Allergy status to other antibiotic agents; Z88.0 Allergy status to penicillin; Z82.0 Family history of epilepsy and other diseases of the nervous system
CPT/HCPCS: 36415; 80048; 80051; 80053; 82306; 82607; 83036; 84132; 85025; 85027; 85610; 86850; 86900; 86901; 88307; 93005; 94760

== ENCOUNTER → 2019-08-17 | Outpatient (CLI) | payer MEDICARE ==
--- NOTE | 2019-08-17 14:39 | MM ---
Reason for exam: additional evaluation requested from prior study. Last mammogram was performed 2 years and 2 months ago. History: Patient is postmenopausal, has history of breast cancer at age 67, and history of other cancer. Family history of breast cancer in maternal aunt at age 65. Mastectomy of the right breast, 2017. Benign US right guided mammotome of the right breast, December 13, 2008. Benign left mammotome panel of the left breast, September 12, 2006. Benign right mammotome panel of the right breast, September 12, 2006. Benign stereotactic core biopsy of the left breast, March 18, 2000. Took estrogen beginning at age 46. Took progesterone beginning at age 46. Physical Findings: Nurse did not find any significant physical abnormalities on exam. MG 3D Diag Mammo W/Cad LT CC and MLO view(s) were taken of the left breast. Prior study comparison: June 14, 2017, bilateral MG 3d diag mammo w/cad [facility]. November 24, 2016, right breast MG 3d diag mammo w/cad RT. The breast tissue is heterogeneously dense. This may lower the sensitivity of mammography. Previous mammotome biopsy in the left breast. No significant new findings when compared with previous films. These results were verbally communicated with the patient and result sheet given to the patient on 08/17/19. ASSESSMENT: Benign, BI-RAD 2 RECOMMENDATION: Follow-up diagnostic mammogram of the left breast in 1 year.
== END | disposition home or self-care (01) ==
LOC: RADMAMWWP 13:36
PROVIDERS: ATTEND Family Medicine
DX: C50.911 Malignant neoplasm of unspecified site of right female breast (principal)
CPT/HCPCS: 77065; G0279; 77061

== ENCOUNTER → 2020-12-24 | Outpatient (CLI) | payer MEDICARE, OTHER ==
--- NOTE | 2020-12-25 07:53 | BD ---
EXAMINATION TYPE: Axial Bone Density DATE OF EXAM: 12/24/2020 COMPARISON: NONE CLINICAL HISTORY: Height: 5 FT 1 IN Weight: 114 FRAX RISK QUESTIONS: Alcohol (3 or more units per day): NO Family History (Parent hip fracture): NO Glucocorticoids (More than 3mos): NO (Ex: prednisone, prednisolone, methylprednisolone, dexamethasone, and hydrocortisone). History of Fracture in Adulthood: NO Secondary Osteoporosis: 1. Type 1 Diabetes: NO 2. Hyperthyroidism: NO 3. Menopause before 45: NO 4. Malnutrition: NO 5. Chronic liver disease: NO Rheumatoid Arthritis: NO Current Tobacco Use: NO RISK FACTORS HISTORY OF: Family History of Osteoporosis: YES Active: SOMEWHAT Diet low in dairy products/other sources of calcium: NO Postmenopausal woman: AGE 47 Take estrogen and/or progesterone medications: TOOK HRT FOR FIVE YEARS Lost more than 2 inches in height since high school: NONE MEDICATIONS: Additional Medications: METOPROLOL,SIMVASTATIN, ISOSORBIDE, NEURONTIN ,HORMONE ASHLEIGH Additional History: BREAST CANCER 2016 MASTECTOMY ONLY EXAM MEASUREMENTS: Bone mineral densitometry was performed using the Polar OLED System. Bone mineral density as measured about the Lumbar spine is: ----- L1-L4(G/cm2): 0.919 T Score Values are as follows: ----- L2: -1.7 ----- L3: -1.5 ----- L4: -2.3 ----- L1-L4: -2.2 Bone mineral density has: INCREASED 0.4 % since study of: 2017 Bone mineral density about the R hip (g/cm2): 0.752 Bone mineral density about the L hip (g/cm2): 0.797 T Score values are as follows: -----R Neck: -2.1 -----L Neck: -1.7 -----R Total: -2.5 -----L Total: -2.2 Bone mineral density has: DECREASED -7.2 % since study of: 2017 IMPRESSION: Osteopenia (T Score between -2.5 and -1). There is slightly increased risk of fracture and the patient may be considered for treatment. Re-Screen 2-5 years. NOTE: T-SCORE=SD OF THE YOUNG ADULT MEAN.
--- NOTE | 2020-12-26 09:38 | MM ---
Reason for exam: additional evaluation requested from prior study. Last mammogram was performed 1 year and 4 months ago. History: Patient is postmenopausal, has history of breast cancer at age 67, and history of other cancer. Family history of breast cancer in maternal aunt at age 65. Mastectomy of the right breast, 2017. Benign US right guided mammotome of the right breast, December 13, 2008. Benign left mammotome panel of the left breast, September 12, 2006. Benign right mammotome panel of the right breast, September 12, 2006. Benign stereotactic core biopsy of the left breast, March 18, 2000. Took estrogen beginning at age 46. Took progesterone beginning at age 46. MG 3D Diag Mammo W/Cad LT CC and MLO view(s) were taken of the left breast. Prior study comparison: August 17, 2019, left breast MG 3d diag mammo w/cad LT. June 14, 2017, bilateral MG 3d diag mammo w/cad [facility]. The breast tissue is heterogeneously dense. This may lower the sensitivity of mammography. Previous mammotome biopsy in the left breast. No significant new findings when compared with previous films. These results were verbally communicated with the patient and result sheet given to the patient on 12/24/20. ASSESSMENT: Benign, BI-RAD 2 RECOMMENDATION: Follow-up diagnostic mammogram of the left breast in 1 year.
== END | disposition home or self-care (01) ==
LOC: RADMAMWWP 14:13
PROVIDERS: ATTEND Family Medicine
DX: M85.80 Other specified disorders of bone density and structure, unspecified site (principal); R92.8 Other abnormal and inconclusive findings on diagnostic imaging of breast; M81.0 Age-related osteoporosis without current pathological fracture
CPT/HCPCS: 77080; 77065; G0279; 77061

== ENCOUNTER → 2022-01-21 | Outpatient (CLI) | payer MEDICARE, OTHER ==
--- NOTE | 2022-01-21 15:08 | MM ---
Reason for exam: additional evaluation requested from prior study. Last mammogram was performed 1 year and 1 month ago. History: Patient is postmenopausal, has history of breast cancer at age 67, and history of other cancer. Family history of breast cancer in maternal aunt at age 65. Mastectomy of the right breast, 2017. Benign US right guided mammotome of the right breast, December 13, 2008. Benign left mammotome panel of the left breast, September 12, 2006. Benign right mammotome panel of the right breast, September 12, 2006. Benign stereotactic core biopsy of the left breast, March 18, 2000. Took estrogen beginning at age 46. Took progesterone beginning at age 46. Taking antineoplastic beginning at age 67. Physical Findings: A clinical breast exam by your physician is recommended on an annual basis and results should be correlated with mammographic findings. MG 3D Diag Mammo W/Cad LT CC and MLO view(s) were taken of the left breast. Prior study comparison: December 24, 2020, left breast MG 3d diag mammo w/cad LT. August 17, 2019, left breast MG 3d diag mammo w/cad LT. The breast tissue is heterogeneously dense. This may lower the sensitivity of mammography. Previous mammotome biopsy in the left breast. No significant new findings when compared with previous films. These results were verbally communicated with the patient and result sheet given to the patient on 01/21/22. ASSESSMENT: Benign, BI-RAD 2 RECOMMENDATION: Follow-up diagnostic mammogram of the left breast in 1 year.
== END | disposition home or self-care (01) ==
LOC: RADMAMWWP 14:14
PROVIDERS: ATTEND Family Medicine
DX: R92.8 Other abnormal and inconclusive findings on diagnostic imaging of breast (principal); Z78.0 Asymptomatic menopausal state; Z85.3 Personal history of malignant neoplasm of breast
CPT/HCPCS: 77065; G0279; 77061

== ENCOUNTER → 2024-02-29 | Outpatient (CLI) | payer MEDICARE, OTHER ==
--- NOTE | 2024-02-29 14:18 | MM ---
Reason for Exam: Hx of breast cancer, mastectomy. Last mammogram was performed 1 year(s) and 1 month(s) ago. Patient History: Menarche at age 15. First Full-Term at age 24. Postmenopausal. Breast cancer, right, age 67. Estrogen, from age 46 until age 52. Progesterone, from age 46 until age 52. 2017, Mastectomy on the Right side. 12/13/2008, Benign Core Biopsy on the right side. 09/12/2006, Benign Core Biopsy on the left side. 09/12/2006, Benign Core Biopsy on the right side. 03/18/2000, Benign Stereotactic Core Biopsy on the left side. Maternal aunt had breast cancer, age 65. Prior Study Comparison: 12/24/2020 Left Diagnostic Mammogram, [facility]. 01/21/2022 Left Diagnostic Mammogram, [facility]. 01/25/2023 Left MG 3D diag mammo w/cad , [facility]. Tissue Density: Left: There are scattered areas of fibroglandular density. Findings: Analyzed By CAD. Postbiopsy changes upper outer left breast. No evidence for mass. No suspicious calcifications. Overall Assessment: Benign, BI-RAD 2 Management: Diagnostic Mammogram of the left breast in 1 year. . Results were given to the patient verbally at the time of exam. Patient should continue monthly self-breast exams. A clinical breast exam by your physician is recommended on an annual basis. This exam should not preclude additional follow-up of suspicious palpable abnormalities. Note on Marquita scores and lifetime risk: 1. A Marquita score greater than 3% is considered moderate risk. If this is the case, consider specialist referral to assess eligibility for a risk reducing agent. 2. If overall lifetime risk for the development of breast cancer is 20% or higher, the patient may qualify for future screening with alternating mammogram and breast MRI. Electronically signed and approved by: Tanner Bashir M.D. Radiologis
== END | disposition home or self-care (01) ==
LOC: RADMAMWWP 13:41
PROVIDERS: ATTEND Family Medicine
DX: R92.322 Mammographic fibroglandular density, left breast (principal); Z85.3 Personal history of malignant neoplasm of breast; Z78.0 Asymptomatic menopausal state; Z80.3 Family history of malignant neoplasm of breast
CPT/HCPCS: 77065; G0279; 77061

== ENCOUNTER → 2025-05-29 | Outpatient (CLI) | payer MEDICARE ==
--- NOTE | 2025-05-29 13:30 | MM ---
Reason for Exam: Hx of breast cancer, mastectomy. Last mammogram was performed 1 year(s) and 3 month(s) ago. Patient History: Menarche at age 15. First Full-Term at age 24. Postmenopausal. Breast cancer, right, age 67. Estrogen, from age 46 until age 52. Progesterone, from age 46 until age 52. 2017, Mastectomy on the Right side. 12/13/2008, Benign Core Biopsy on the right side. 09/12/2006, Benign Core Biopsy on the left side. 09/12/2006, Benign Core Biopsy on the right side. 03/18/2000, Benign Stereotactic Core Biopsy on the left side. Maternal aunt had breast cancer, age 65. Prior Study Comparison: 01/21/2022 Left Diagnostic Mammogram, [facility]. 01/25/2023 Left MG 3D diag mammo w/cad LT, [facility]. 02/29/2024 Left MG 3D diag mammo wo cad LT, [facility]. Tissue Density: Left: The breasts are heterogeneously dense, which may obscure small masses. Findings: Analyzed By CAD. There are 2 biopsy clips in the left breast redemonstrated. Stable distortion at the more anterior clip. No suspicious new mass or worrisome cluster of microcalcification in the left breast. Overall Assessment: Benign, BI-RAD 2 Management: Screening Mammogram of the left breast in 1 year. . Results were given to the patient verbally at the time of exam. Patient should continue monthly self-breast exams. A clinical breast exam by your physician is recommended on an annual basis. This exam should not preclude additional follow-up of suspicious palpable abnormalities. Note on Marquita scores and lifetime risk: 1. A Marquita score greater than 3% is considered moderate risk. If this is the case, consider specialist referral to assess eligibility for a risk reducing agent. 2. If overall lifetime risk for the development of breast cancer is 20% or higher, the patient may qualify for future screening with alternating mammogram and breast MRI. [facility], , 05/29/2025 1:27 PM. Electronically signed and approved by: Tyler Alvarado M.D.
== END | disposition home or self-care (01) ==
LOC: RADMAMWWP 13:02
PROVIDERS: ATTEND Family Medicine
DX: C50.911 Malignant neoplasm of unspecified site of right female breast (principal); R92.332 Mammographic heterogeneous density, left breast; Z80.3 Family history of malignant neoplasm of breast; Z78.0 Asymptomatic menopausal state
CPT/HCPCS: 77061; 77065